=== PATIENT | female | born 1950 | race Two or more races ===

== ENCOUNTER 2024-12-20 11:59 | Emergency (ER) | payer MEDICAID, OTHER ==
[~2024-12-20] VITALS: Ht 160 cm; Wt 67.6 kg
--- NOTE | 2024-12-20 12:17 | ED.PDOC ---
HPI Comments 74 y/o F, with PMHx of HTN and CAD presents to the ED for CC of chest pain. Patient states, that she has been experiencing left sided chest pain x2days. Patient describes, chest pain to be within her left breast that worsens with touch. Patient denies headache, palpitations, shortness of breath, or weakness. No other associated symptoms, modifiers, recent injuries or sick contacts present at this time. 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 Family History Family History: Unknown Social History Smoker: Non-Smoker Alcohol: Denies ETOH Use Drugs: Denies Drug Use Lives In: Home Constitutional: denies: chills, diaphoresis, fatigue, fever, malaise, sweats, weakness, others EENTM: denies: blurred vision, double vision, ear bleeding, ear discharge, ear drainage, ear pain, ear ringing, eye pain, eye redness, hearing loss, mouth pain, mouth swelling, nasal discharge, nose bleeding, nose congestion, nose pain, photophobia, tearing, throat pain, throat swelling, voice changes, others Respiratory: denies: cough, hemoptysis, orthopnea, SOB at rest, shortness of breath, SOB with excertion, stridor, wheezing, others Cardiovascular: reports: chest pain; denies: dizzy spells, diaphoresis, Dyspnea on exertion, edema, irregular heart beat, left arm pain, lightheadedness, palpitations, PND, syncope, others Gastrointestinal: denies: abdomen distended, abdominal pain, blood streaked bowels, constipated, diarrhea, dysphagia, difficulty swallowing, hematemesis, melena, nausea, poor appetite, poor fluid intake, rectal bleeding, rectal pain, vomiting, others Genitourinary: denies: abnormal vagina bleeding, burning, dyspareunia, dysuria, flank pain, frequency, hematuria, incontinence, pain, , vagina discharge, urgency, others Neurological: denies: dizziness, fainting, headache, left sided numbness, left sided weakness, numbness, paresthesia, pre-existing deficit, right sided numbness, right sided weakness, seizure, speech problems, tingling, tremors, weakness, others Musculoskeletal: denies: back pain, gout, joint pain, joint swelling, muscle pain, muscle stiffness, neck pain, others Integumetry: denies: bruises, change in color, change in hair/nails, dryness, laceration, lesions, lumps, rash, wounds, others Allergic/Immunocompromised: denies: Difficulty Healing, Frequent Infections, Hives, Itching, others Hematologic/Lymphatic: denies: anemia, blood clots, easy bleeding, easy bruising, swollen glands, others Endocrine: denies: excessive hunger, excessive sweating, excessive thirst, excessive urination, flushing, intolerance to cold, intolerance to heat, unexplained weight gain, unexplained weight loss, others Psychiatric: denies: anxiety, bipolar disorder, depression, hopeless, panic disorder, schizophrenia, sleepless, suicidal, others All Other Systems: Reviewed and Negative Physical Exam General Appearance: Moderate Distress HEENT: Normal ENT Inspection, Pharynx Normal, TMs Normal Neck: Full Range of Motion, Non-Tender, Normal, Normal Inspection Respiratory: Chest Non-Tender, Lungs Clear, No Accessory Muscle Use, No Respiratory Distress, Normal Breath Sounds Cardiovascular: No Edema, No JVD, No Murmur, No Gallop, Normal Peripheral Pulses, Regular Rate/Rhythm Breast Exam: Deferred Gastrointestinal: No Organomegaly, Non Tender, No Pulsatile Mass, Normal Bowel Sounds, Soft Genitalia: Deferred Pelvic: Deferred Rectal: Deferred Extremities: No calf tenderness, Normal capillary refill, Normal range of motion, Pedal edema Musculoskeletal : Apperance: Normal Neurologic: Alert, marketing sales representative II-XII nml as Tested, No Motor Deficits, Normal Affect, Normal Mood, No Sensory Deficits Cerebellar Function: NOT DONE Reflexes: NOT DONE Skin: Dry, Normal Color, Warm Peripheral Pulses: 3+ Radial (R), 3+ Radial (L) Lymphatic: No Adenopathy EKG EKG : [place]: Normal Cardiac Rhythm: NSR Was a procedure done? Was a procedure done?: No CP Differential Dx Differential Diagnosis: A-fib, A-Flutter, Angina, Anxiety / Panic Attack, Atrial Dysrhythmia, Electrolyte Disorder Differential Diagnosis: Chest Wall Pain, Costochondritis, Pneumonia X-Ray, Labs, Meds, VS Vital Signs Date Time Temp Pulse Resp B/P (MAP) Pulse Ox O2 Delivery O2 Flow Rate FiO2 12/20/24 12:28 63 12/20/24 12:24 98.0 63 20 145/55 (85) 99 98.0 Lab Test 12/20/24 13:50 12/20/24 13:20 12/20/24 12:13 Range/Units Urine Color Light-yellow Yellow Urine Clarity Clear Clear Urine pH 6.5 5.0-9.0 Urine Specific [place] 1.006 1.001-1.035 Urine Protein Negative Negative Urine Ketones Negative Negative Urine Blood Negative Negative /uL Urine Nitrite Negative Negative Urine Bilirubin Negative Negative Urine Urobilinogen Normal Negative mg/dL Urine Leukocyte Esterase Trace Negative /uL Urine RBC <1 0 - 4 /hpf Urine Microscopic WBC 7 H 0-5 /HPF Urine Squamous Epithelial Cells None seen <5 /hpf Urine Bacteria None seen None Seen /hpf Urine Glucose Normal Normal mg/dL Troponin I High Sensitivity 9 9 </=34 ng/L White Blood Count 6.0 4.4-10.8 10^3/uL Red Blood Count 4.24 4.0-5.20 10^6/uL Hemoglobin 12.6 12.2-16.2 g/dL Hematocrit 38.1 36.0-46.0 % Mean Corpuscular Volume 89.8 80.0-100.0 fL Mean Corpuscular Hemoglobin 29.6 28.0-32.0 pg Mean Corpuscular Hemoglobin Concent 33.0 32.0-36.0 g/dL Red Cell Distribution Width 17.0 H 11.8-14.3 % Platelet Count 218 140-450 10^3/uL Mean Platelet Volume 8.8 6.9-10.8 fL Neutrophils (%) (Auto) 47.6 37.0-80.0 % Lymphocytes (%) (Auto) 39.2 10.0-50.0 % Monocytes (%) (Auto) 10.0 0.0-12.0 % Eosinophils (%) (Auto) 1.9 0.0-7.0 % Basophils (%) (Auto) 1.3 0.0-2.0 % Neutrophils # (Auto) 2.8 1.6-8.6 10 ^3/uL Lymphocytes # (Auto) 2.3 0.4-5.4 10 ^3/uL Monocytes # (Auto) 0.6 0-1.3 10 ^3/uL Eosinophils # (Auto) 0.1 0-0.8 10 ^3/uL Basophils # (Auto) 0.1 0-0.2 10 ^3/uL Nucleated Red Blood Cells 0.0 % Sodium Level 141 136-145 mmol/L Potassium Level 4.0 3.5-5.1 mmol/L Chloride Level 104 98-107 mmol/L Carbon Dioxide Level 30 20-31 mmol/L Anion Gap 7 5-15 Blood Urea Nitrogen 20 9-23 mg/dL Creatinine 1.10 H 0.550-1.02 mg/dL Glomerular Filtration Rate Calc 53 >90 mL/min BUN/Creatinine Ratio 18.2 10.0-20.0 Serum Glucose 89 74-106 mg/dL Calcium Level 9.5 8.7-10.4 mg/dL Patient alert. Complaining of chest pain. Vitals stable. Answering questions. Does have mild swelling of the right lower extremity. History of coronary artery bypass graft. EKG reviewed does not show any acute changes. Reviewed her history. Was given aspirin. Was given nitro. Explained to the patient. Continue monitoring. Time of 1ST Reevaluation: 12:40 Reevaluation 1ST: Unchanged Patient Education/Counseling: Diagnosis, Treatment Family Education/Counseling: No Family Present Departure 1 Departure Time of Disposition: 14:07 Impression: Primary Impression: Chest pain of unknown etiology Disposition: ADMITTED INPATIENT Admit to: Med Surg Condition: Guarded Critical Care Note Critical Care Time?: No Stability Stability form required: No Heart Score Heart Score: Heart Score Response (Comments) Value History Slightly Suspicious 0 EKG Normal 0 Age >65 2 Risk Factors >3 or Hx ASHD 2 Troponin Normal limit 0 Total 4 I personally scribed for JESUSITA CONTRERAS MD ([email or web address]) on 12/20/24 at 12:17. Electronically submitted by Mimi Lara ([email or web address]). JESUSITA CONTRERAS MD Dec 20, 2024 12:17
[2024-12-20 12:22] LABS: Basophils # (auto) 0.1 10 ^3/uL (0-0.2); Basophils % (auto) 1.3 % (0.0-2.0); Eosinophils # (auto) 0.1 10 ^3/uL (0-0.8); Eosinophils % (auto) 1.9 % (0.0-7.0); Hematocrit 38.1 % (36.0-46.0); Hemoglobin 12.6 g/dL (12.2-16.2); Lymphocytes # (auto) 2.3 10 ^3/uL (0.4-5.4); Lymphocytes % (auto) 39.2 % (10.0-50.0); Mean Corpuscular Hemoglobin 29.6 pg (28.0-32.0); Mean Corpuscular Volume 89.8 fL (80.0-100.0); Monocytes # (auto) 0.6 10 ^3/uL (0-1.3); Neutrophils # (auto) 2.8 10 ^3/uL (1.6-8.6); Neutrophils % (auto) 47.6 % (37.0-80.0); Platelet Count (auto) 218 10^3/uL (140-450); Red Blood Cells 4.24 10^6/uL (4.0-5.20)
[2024-12-20 12:24] VITALS: BP 145/55; RESP 20; TEMP 98; O2SAT 99
[2024-12-20 12:28] VITALS: PULSE 63
[2024-12-20] MEDS ORDERED: ASPirin 325 MG TAB PO ONE (12:30)
[2024-12-20] MEDS ORDERED: NITROGLYCERIN 0.4 MG SL TAB SL ONE (12:30)
[2024-12-20 12:42] LABS: Chloride 104 mmol/L (98-107); Sodium 141 mmol/L (136-145)
[2024-12-20 12:43] LABS: Anion Gap 7 (5-15); Calcium 9.5 mg/dL (8.7-10.4); Carbon Dioxide 30 mmol/L (20-31)
[2024-12-20 12:48] LABS: BUN/Creatinine Ratio 18.2 (10.0-20.0); Blood Urea Nitrogen 20 mg/dL (9-23); Glucose 89 mg/dL (74-106)
[2024-12-20 13:53] LABS: Urine Bacteria None Seen /hpf (None Seen)
[2024-12-20 14:01] LABS: Urine Blood Negative /uL (Negative); Urine Clarity Clear (Clear); Urine Protein, UAD Negative (Negative); Urine Specific Gravity 1.006 (1.001-1.035); Urine Squamous Epithelial Cell None Seen /hpf (<5); Urine Urobilinogen Normal (Negative); Urine WBC 7 /HPF (0-5); Urine pH 6.5 (5.0-9.0)
[2024-12-20 14:03] LABS: Urine Color Light-Yellow (Yellow)
--- NOTE | 2024-12-22 13:38 | ECG ---
[facility] Test Date: 2024-12-20 Test Time: 12:09:07 Pat Name: VINAY FLYNN Department: ER Room: Gender: F Process Owner: ER : 1950 Requested By: JESUSITA CONTRERAS Order Number: [id number] Reading MD: Measurements Intervals [place] Rate: 63 P: 58 HI: 177 QRS: 86 QRSD: 100 T: 61 QT: 482 QTc: 494 Interpretive Statements Sinus rhythm Borderline right axis deviation Borderline prolonged QT interval Baseline wander in lead(s) V1 Please click the below link to view image of tracing.
== END 2024-12-20 18:57 | disposition left against medical advice (07) ==
LOC: ER 11:59
DX: R07.89 Other chest pain (principal); I25.10 Atherosclerotic heart disease of native coronary artery without angina pectoris; I10 Essential (primary) hypertension; Z95.1 Presence of aortocoronary bypass graft
CPT/HCPCS: 36415; 80048; 81001; 84484; 85025; 93005

== ENCOUNTER 2025-02-11 05:36 | Inpatient (IN) | payer MEDICAID ==
[2025-02-11] VITALS (8 sets, daily range): BP systolic 127–136; BP diastolic 61–72; PULSE 67–127; RESP 16–20; TEMP 97.4–97.7; O2SAT 96–98
[~2025-02-11] VITALS: Ht 160 cm; Wt 76.0 kg
--- NOTE | 2025-02-11 05:52 | PRN ---
Misceleneous Note Note Note RAPID MEDICAL ASSESSMENT NOTE: 71-year-old female who presents with palpitations. Physical exam: General: Awake, alert and oriented. No acute distress. Skin: Skin in warm, dry and intact without rashes or lesions. HEENT: The head is normocephalic and atraumatic. Conjunctivae are clear without exudates or hemorrhage. Sclera is non-icteric. Neck: Normal range of motion. No JVD. Cardiac: Patient is tachycardic Respiratory: No signs of respiratory distress. No Stridor. Neurological: The patient is awake, alert and oriented to person, place, and time with normal speech. Speech is clear. There is no facial asymmetry. Psychiatric: Appropriate mood and affect. Good judgement and insight. Plan: Labs, imaging, gentle IVF bolus Sign out to oncoming provider pending full evaluation and re-assessment. SHAYNE KEENE MD Feb 11, 2025 05:52
--- NOTE | 2025-02-11 06:24 | ECG ---
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
[2025-02-11 06:25] LABS: Basophils # (auto) 0 10 ^3/uL (0-0.2); Basophils % (auto) 0.8 % (0.0-2.0); Eosinophils # (auto) 0.2 10 ^3/uL (0-0.8); Eosinophils % (auto) 3.6 % (0.0-7.0); Hematocrit 43.5 % (36.0-46.0); Hemoglobin 14.6 g/dL (12.2-16.2); Lymphocytes # (auto) 2.3 10 ^3/uL (0.4-5.4); Lymphocytes % (auto) 43.2 % (10.0-50.0); Mean Corpuscular Hemoglobin 28.5 pg (28.0-32.0); Mean Corpuscular Hgb Conc. 33.5 g/dL (32.0-36.0); Monocytes # (auto) 0.5 10 ^3/uL (0-1.3); Monocytes % (auto) 10.1 % (0.0-12.0); Neutrophils # (auto) 2.2 10 ^3/uL (1.6-8.6); Neutrophils % (auto) 42.3 % (37.0-80.0); Nucleated Red Blood Cells % 0.1 %; Platelet Count (auto) 207 10^3/uL (140-450); Red Blood Cells 5.12 10^6/uL (4.0-5.20); Red Cell Distribution Width 16.7 % (11.8-14.3); White Blood Cell 5.2 10^3/uL (4.4-10.8)
[2025-02-11] MEDS: SODIUM CHLORIDE 0.9% 250 ML IV ONE (06:29)
[2025-02-11 06:35] LABS: Anion Gap 10 (5-15); Carbon Dioxide 27 mmol/L (20-31)
[2025-02-11 06:36] LABS: Calcium 9.6 mg/dL (8.7-10.4); Chloride 108 mmol/L (98-107); Potassium 3.1 mmol/L (3.5-5.1); Sodium 145 mmol/L (136-145)
[2025-02-11 06:41] LABS: BUN/Creatinine Ratio 14.3 (10.0-20.0); Blood Urea Nitrogen 14 mg/dL (9-23); Glucose 99 mg/dL (74-106)
--- NOTE | 2025-02-11 06:50 | DVH ---
CHEST RADIOGRAPH Indication: palpitations Technique: Single frontal view of the chest was obtained Comparison: None FINDINGS: Lines and Tubes: None Lungs: No focal consolidation. Pleura: No effusion. No pneumothorax. Cardiomediastinal contours: Left atrial appendage clip. Mild cardiomegaly. Bones: No acute osseous abnormality. Status post median sternotomy. IMPRESSION: 1. No focal airspace disease. Mild cardiomegaly.
[2025-02-11 06:52] LABS: Lipase 33 U/L (12-53)
--- NOTE | 2025-02-11 07:02 | ED.PDOC ---
HPI Comments This is a 74 year old female accompanied by son presenting to the ED with chief complaint of palpitations. Son reports that the patient has been experiencing intermittent palpitations with associated SOB ever since she had triple bypass surgery in September at [facility]. 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 Patient states she has not taken her medication this morning. Patient denies any chest pain, dizziness, nausea, vomiting, diarrhea, fever, chills, or cough. Chief Complaint: Palpitations Time Seen by MD: 06:59 Primary Care Provider: UNKNOWN Reviewed Notes: Nurses Notes, Medications, Allergies Allergies: Coded Allergies: NO KNOWN ALLERGIES (Unverified , 12/20/24) Information Source: Patient, Relative (Child) Mode of Arrival: Ambulatory Severity: Moderate Timing: Months Duration: Intermittent Prehospital treatment: None Radiation: No Radiation Onset: At Rest Cardiac Risk Factors: Hyperlipidemia, HTN PE Risk Factors: None History of: Similar pain in past, Aortic Disease Associated Signs and Symptoms: SOB, Palpitations Past Medical History PAST MEDICAL HISTORY: CAD, CHF, High Lipids, HTN Surgical History: CABG 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 Family History Family History: Unknown Social History Smoker: Non-Smoker Alcohol: Denies ETOH Use Drugs: Denies Drug Use Lives In: Home Constitutional: denies: chills, diaphoresis, fatigue, fever, malaise, sweats, weakness, others EENTM: denies: blurred vision, double vision, ear bleeding, ear discharge, ear drainage, ear pain, ear ringing, eye pain, eye redness, hearing loss, mouth pain, mouth swelling, nasal discharge, nose bleeding, nose congestion, nose pain, photophobia, tearing, throat pain, throat swelling, voice changes, others Respiratory: reports: shortness of breath; denies: cough, hemoptysis, orthopnea, SOB at rest, SOB with excertion, stridor, wheezing, others Cardiovascular: reports: palpitations; denies: chest pain, dizzy spells, diaphoresis, Dyspnea on exertion, edema, irregular heart beat, left arm pain, lightheadedness, PND, syncope, others Gastrointestinal: denies: abdomen distended, abdominal pain, blood streaked bowels, constipated, diarrhea, dysphagia, difficulty swallowing, hematemesis, melena, nausea, poor appetite, poor fluid intake, rectal bleeding, rectal pain, vomiting, others Genitourinary: denies: abnormal vagina bleeding, burning, dyspareunia, dysuria, flank pain, frequency, hematuria, incontinence, pain, , vagina discharge, urgency, others Neurological: denies: dizziness, fainting, headache, left sided numbness, left sided weakness, numbness, paresthesia, pre-existing deficit, right sided n umbness, right sided weakness, seizure, speech problems, tingling, tremors, weakness, others Musculoskeletal: denies: back pain, gout, joint pain, joint swelling, muscle pain, muscle stiffness, neck pain, others Integumetry: denies: bruises, change in color, change in hair/nails, dryness, laceration, lesions, lumps, rash, wounds, others Allergic/Immunocompromised: denies: Difficulty Healing, Frequent Infections, Hives, Itching, others Hematologic/Lymphatic: denies: anemia, blood clots, easy bleeding, easy bruising, swollen glands, others Endocrine: denies: excessive hunger, excessive sweating, excessive thirst, excessive urination, flushing, intolerance to cold, intolerance to heat, unexplained weight gain, unexplained weight loss, others Psychiatric: denies: anxiety, bipolar disorder, depression, hopeless, panic disorder, schizophrenia, sleepless, suicidal, others All Other Systems: Reviewed and Negative Physical Exam General Appearance: No Apparent Distress, Normal HEENT: Normal ENT Inspection, Pharynx Normal, TMs Normal Neck: Full Range of Motion, Non-Tender, Normal, Normal Inspection Respiratory: Chest Non-Tender, Lungs Clear, No Accessory Muscle Use, No Respiratory Distress, Normal Breath Sounds Cardiovascular: No Edema, No JVD, No Murmur, No Gallop, Normal Peripheral Pulses, Tachycardia Breast Exam: Deferred Gastrointestinal: No Organomegaly, Non Tender, No Pulsatile Mass, Normal Bowel Sounds, Soft Genitalia: Deferred Pelvic: Deferred Rectal: Deferred Extremities: No calf tenderness, Normal capillary refill, Normal inspection, Normal range of motion, Non-tender, No pedal edema Musculoskeletal : Apperance: Normal Neurologic: Alert, migrant leader II-XII nml as Tested, No Motor Deficits, Normal Affect, Normal Mood, No Sensory Deficits Cerebellar Function: Normal Reflexes: Normal Skin: Dry, Normal Color, Warm Lymphatic: No Adenopathy Was a procedure done? Was a procedure done?: No CP Differential Dx Differential Diagnosis: A-fib, Electrolyte Disorder, WI, PAC's Differential Diagnosis: CHF, HTN Essential Differential Diagnosis: Myocardial Infarction, Pericarditis X-Ray, Labs, Meds, VS Vital Signs Date Time Temp Pulse Resp B/P (MAP) Pulse Ox O2 Delivery O2 Flow Rate FiO2 02/11/25 06:11 98.1 126 18 140/87 (104) 96 98.1 02/11/25 06:11 127 20 96 Room Air* 0 21 02/11/25 05:43 122 02/11/25 05:40 97.5 122 18 151/70 (97) 99 97.5 Lab Test 02/11/25 07:04 02/11/25 06:04 Range/Units Troponin I High Sensitivity Pending 17 </=34 ng/L White Blood Count 5.2 4.4-10.8 10^3/uL Red Blood Count 5.12 4.0-5.20 10^6/uL Hemoglobin 14.6 12.2-16.2 g/dL Hematocrit 43.5 36.0-46.0 % Mean Corpuscular Volume 85.0 80.0-100.0 fL Mean Corpuscular Hemoglobin 28.5 28.0-32.0 pg Mean Corpuscular Hemoglobin Concent 33.5 32.0-36.0 g/dL Red Cell Distribution Width 16.7 H 11.8-14.3 % Platelet Count 207 140-450 10^3/uL Mean Platelet Volume 8.8 6.9-10.8 fL Neutrophils (%) (Auto) 42.3 37.0-80.0 % Lymphocytes (%) (Auto) 43.2 10.0-50.0 % Monocytes (%) (Auto) 10.1 0.0-12.0 % Eosinophils (%) (Auto) 3.6 0.0-7.0 % Basophils (%) (Auto) 0.8 0.0-2.0 % Neutrophils # (Auto) 2.2 1.6-8.6 10 ^3/uL Lymphocytes # (Auto) 2.3 0.4-5.4 10 ^3/uL Monocytes # (Auto) 0.5 0-1.3 10 ^3/uL Eosinophils # (Auto) 0.2 0-0.8 10 ^3/uL Basophils # (Auto) 0 0-0.2 10 ^3/uL Nucleated Red Blood Cells 0.1 % Sodium Level 145 136-145 mmol/L Potassium Level 3.1 L 3.5-5.1 mmol/L Chloride Level 108 H 98-107 mmol/L Carbon Dioxide Level 27 20-31 mmol/L Anion Gap 10 5-15 Blood Urea Nitrogen 14 9-23 mg/dL Creatinine 0.98 0.550-1.02 mg/dL Glomerular Filtration Rate Calc 61 >90 mL/min BUN/Creatinine Ratio 14.3 10.0-20.0 Serum Glucose 99 74-106 mg/dL Calcium Level 9.6 8.7-10.4 mg/dL B-Type Natriuretic Peptide 314.39 0-100 pg/mL Lipase 33 12-53 U/L Current Medications Medications (Trade) Dose Ordered Sig/Tal Route Start Time Stop Time Status Last Admin Sodium Chloride 250 ml @ 250 mls/hr Q1H ONCE IV 02/11/25 06:00 02/11/25 06:59 DC 02/11/25 06:29 Time of 1ST Reevaluation: 07:58 Reevaluation 1ST: Unchanged Patient Education/Counseling: Diagnosis, Treatment Family Education/Counseling: Diagnosis, Treatment Additional Information Previous visits reviewed: 12/20/24 for chest pain The following tests were ordered, and results were reviewed by me: Chest XR, CBC, BMP, UA, Lipase, BNP, Troponin, EKG Additional Information was gathered from interviewing the following independent historians: Son I reviewed and agreed with the following test results read by other providers: Chest XR I discussed treatment and results with medical personnel and: patient and son Comprehensive systems review obtained and negative except for what is stated in the HPI. Departure 1 Departure Time of Disposition: 07:29 (Patient's worsening shortness of breath and palpit ations. We will admit patient for further workup and expert consultation) Impression: Primary Impression: Shortness of breath Additional Impression: Palpitations Disposition: ADMITTED INPATIENT Admit to: Med Surg Condition: Serious Critical Care Note Critical Care Time?: Yes Critical care comment: Acute shortness of breath Authorized and Performed by: Jarad Lovelace MD Total critical care time: Approximately 38 minutes Due to a high probability of clinically significant, life threatening deterioration, the patient required my highest level of preparedness to intervene emergently and I personally spent this critical care time directly and personally managing the patient. This critical care time included obtaining a history; examining the patient; pulse oximetry; ordering and review of studies; arranging urgent treatment with development of a management plan; evaluation of patient's response to treatment; frequent reassessment; and, discussions with other providers. This critical care time was performed to assess and manage the high probability of imminent, life-threatening deterioration that could result in multi-organ failure. It was exclusive of separately billable procedures and treating other patients and teaching time. Please see my other sections and the rest of the note for further information on patient assessment and treatment. Stability Stability form required: No Heart Score Heart Score: Heart Score Response (Comments) Value History Highly Suspicious 2 EKG Normal 0 Age >65 2 Risk Factors >3 or Hx ASHD 2 Troponin 1-2 x's Normal limit 1 Total 7 I personally scribed for JARAD LOVELACE MD ([email or web address]) on 02/11/25 at 07:02. Electronically submitted by Adithya Mcclendon ([email or web address]). JARAD LOVELACE MD Feb 11, 2025 07:02
--- NOTE | 2025-02-11 07:43 | ECG ---
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
[2025-02-11] MEDS ORDERED: DOCUSATE SOD 100 MG CAP PO PRN (08:45)
[2025-02-11] MEDS ORDERED: ONDANSETRON HCL 4 MG/2 ML VIAL IV PRN (08:45)
[2025-02-11] MEDS ORDERED: HYDROcodone-ACET 5/325MG TAB PO PRN (08:45)
[2025-02-11] MEDS ORDERED: ACETAMINOPHEN 325 MG TAB PO PRN (08:45)
[2025-02-11] MEDS ORDERED: hydrALAZINE HCL 20 MG/ML VL IV PRN (08:45)
[2025-02-11] MEDS: METOPROLOL TARTRATE 1MG/1ML-5ML VIAL IV ONE (09:06)
[2025-02-11] MEDS ORDERED: NITROGLYCERIN 0.4 MG SL TAB SL PRN (09:30)
[2025-02-11] MEDS ORDERED: MORPHINE SULFATE INJ 2 MG/ml SYRG IV PRN (09:30)
--- NOTE | 2025-02-11 09:32 | DVHHP2 ---
History of Present Illness Reason for Visit: Palpitations History of Present Illness The patient is a 74-year-old female with past medical history of Coronary artery disease, CHF, hyperlipidemia, and hypertension who presented to [facility] ED with complaint of palpitations. 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 Patient was seen and evaluated in the ED, laboratory data shows WBC 5.2, platelets 207, sodium 145, potassium 3.1, BUN 14, creatinine 0.98, glucose 99, BNP 314.39, lipase 33, troponin 15, blood pressure 140/87, heart rate 126 trending down to 76, temperature 98.1 F, O2 saturation 96% on oxygen. Chest x-ray showed no focal airspace disease, mild cardiomegaly. On my assessment, patient denied chest pain, no headache, no dizziness, no diaphoresis, no palpitation at this moment, currently on oxygen, no nausea, no vomiting, no fever, no chills. Patient was admitted for further evaluation and medical management. Past Medical History CAD, CHF, High Lipids, HTN Past Surgical History CABG Family History Reviewed, noncontributory to the management of this case. Past Social History The patient lives at home, denies smoking, alcohol or illicit drugs abuse. Review of Systems Constitutional: Yes: Weakness; No: Fever, Chills, Sweats, Malaise, Other Eyes: No: Pain, Vision change, Conjunctivae inflammation, Eyelid inflammation, Other, Redness ENT: No: Ear pain, Ear discharge, Nose pain, Nose discharge, Nose congestion, Mouth pain, Mouth swelling, Throat pain, Throat swelling, Other Respiratory: Shortness of breath; No: Cough, Dry, SOB with excertion, Wheezing, Hemoptysis, Pleuritic Pain, Sputum, Wheezing, Other Cardiovascular: Palpitations; No: Chest Pain, Orthopnea, Paroxysmal Noc. Dyspnea, Edema, Lt Headedness, Other Gastrointestinal: No: Nausea, Vomiting, Abdominal Pain, Diarrhea, Constipation, Melena, Hematochezia, Other Genitourinary: No Dysuria, No Frequency, No Incontinence, No Hematuria, No Retention, No Other Musculoskeletal: No: other, neck pain, shoulder pain, arm pain, back pain, hand pain, leg pain, foot pain Skin: No: Rash, Lesions, Jaundice, Bruising, Other Neurological: No: Weakness, Numbness, Incoordination, Change in speech, Confusion, Seizures, Other Allergies: Coded Allergies: NO KNOWN ALLERGIES (Unverified , 12/20/24) Medications Current Medications Medications Dose Ordered Sig/Tal Route Start Time Stop Time Status Last Admin Dose Admin Carvedilol 12.5 mg Q12HR PO 02/11/25 10:00 Furosemide 20 mg DAILY IV 02/11/25 10:00 Atorvastatin Calcium 20 mg HS PO 02/11/25 22:00 Aspirin 81 mg DAILY PO 02/11/25 10:00 Hydralazine HCl 10 mg Q6HP PRN IV 02/11/25 08:45 Sodium Chloride 10 ml Q8HR IV 02/11/25 14:00 Acetaminophen/ Hydrocodone Bitart 1 tab Q4HP PRN PO 02/11/25 08:45 Ondansetron HCl 4 mg Q4HP PRN IV 02/11/25 08:45 Docusate Sodium 100 mg BIDPRN PRN PO 02/11/25 08:45 Acetaminophen 650 mg Q6HP PRN PO 02/11/25 08:45 Exam Vital Signs Vital Signs Date Time Temp Pulse Resp B/P (MAP) Pulse Ox O2 Delivery O2 Flow Rate FiO2 02/11/25 09:06 77 139/76 02/11/25 07:36 16 97 Room Air* 0 21 02/11/25 07:36 98.4 98.4 General Appearance: Alert, Oriented X3, Cooperative, No acute distress HEENT: Atraumatic, PERRLA, EOMI, Mucous membr. moist/pink Respiratory: Clear to auscultation, Normal air movement Cardiovascular: Regular rate, Normal S1, Normal S2, No murmurs Abdominal: Normal bowel sounds, Soft, No tenderness, No hepatospenomegaly, No masses Extremities: No clubbing, No cyanosis, No edema, Normal pulses, No tenderness/swelling Skin: No rashes, No breakdown, No significant lesion Neuro: Normal speech, Normal tone, Sensation intact, Cranial nerves 3-12 NL, Reflexes 2+, Other (Generalized weakness) Psych/Mental Status: Mental status NL, Mood NL Labs/Xrays Labs Test 02/11/25 09:19 02/11/25 09:10 02/11/25 06:04 Range/Units White Blood Count 5.2 4.4-10.8 10^3/uL Red Blood Count 5.12 4.0-5.20 10^6/uL Hemoglobin 14.6 12.2-16.2 g/dL Hematocrit 43.5 36.0-46.0 % Mean Corpuscular Volume 85.0 80.0-100.0 fL Mean Corpuscular Hemoglobin 28.5 28.0-32.0 pg Mean Corpuscular Hemoglobin Concent 33.5 32.0-36.0 g/dL Red Cell Distribution Width 16.7 H 11.8-14.3 % Platelet Count 207 140-450 10^3/uL Mean Platelet Volume 8.8 6.9-10.8 fL Neutrophils (%) (Auto) 42.3 37.0-80.0 % Lymphocytes (%) (Auto) 43.2 10.0-50.0 % Monocytes (%) (Auto) 10.1 0.0-12.0 % Eosinophils (%) (Auto) 3.6 0.0-7.0 % Basophils (%) (Auto) 0.8 0.0-2.0 % Neutrophils # (Auto) 2.2 1.6-8.6 10 ^3/uL Lymphocytes # (Auto) 2.3 0.4-5.4 10 ^3/uL Monocytes # (Auto) 0.5 0-1.3 10 ^3/uL Eosinophils # (Auto) 0.2 0-0.8 10 ^3/uL Basophils # (Auto) 0 0-0.2 10 ^3/uL Nucleated Red Blood Cells 0.1 % Sodium Level 145 136-145 mmol/L Potassium Level 3.1 L 3.5-5.1 mmol/L Chloride Level 108 H 98-107 mmol/L Carbon Dioxide Level 27 20-31 mmol/L Anion Gap 10 5-15 Blood Urea Nitrogen 14 9-23 mg/dL Creatinine 0.98 0.550-1.02 mg/dL Glomerular Filtration Rate Calc 61 >90 mL/min BUN/Creatinine Ratio 14.3 10.0-20.0 Serum Glucose 99 74-106 mg/dL Calcium Level 9.6 8.7-10.4 mg/dL B-Type Natriuretic Peptide 314.39 0-100 pg/mL Lipase 33 12-53 U/L PATIENT: VINAY FLYNNACCT: [id number] UNIT: [id number] : 1950 LOC: ER ROOM / BED: / AGE / SEX: 74 / F ADM STATUS: REG ER SERVICE [id number] ORDERING PHYSICIAN: SHAYNE KEENE MD PROCEDURE(s): CXR1 - CHEST XRAY 1 VIEW REASON: palpitations ORDER NUMBER(s): [id number], ACCESSION NUMBER(s): [id number] CHEST RADIOGRAPH Indication: palpitations Technique: Single frontal view of the chest was obtained Comparison: None FINDINGS: Lines and Tubes: None Lungs: No focal consolidation. Pleura: No effusion. No pneumothorax. Cardiomediastinal contours: Left atrial appendage clip. Mild cardiomegaly. Bones: No acute osseous abnormality. Status post median sternotomy. IMPRESSION: 1. No focal airspace disease. Mild cardiomegaly. Assessment/Plan Assessment/Plan Palpitations Hypokalemia Acute respiratory distress Generalized weakness Plan 1. Admit to telemetry unit 2. Breathing treatment 3. Pain control management 4. Management of fluids and electrolytes 5. Consultation for hospitalist 6. Diagnostic tests chest x-ray 7. DVT prophylaxis on SCDs 8. Repeat labs CBC, CMP in a.m. 9. Continue with current medical management 10. Treatment plan discussed with patient and RN. Patient verbalized understanding. Plan discussed with: Patient, Other (RN) My Orders Orders - GURWINDER WEST DNP Procedure Category Date Status Time Carvedilol Tablet PHA 02/11/25 In Process (Coreg Tablet) 10:00 Furosemide Injection PHA 02/11/25 In Process (Lasix Injection) 10:00 Atorvastatin (Lipitor) PHA 02/11/25 In Process 22:00 Aspirin Tablet PHA 02/11/25 In Process 10:00 Hydralazine Injection PHA 02/11/25 In Process (Apresoline Inject 08:45 Allergies CANDACE 02/11/25 In Process 08:36 Code Status CODE 02/11/25 Transmitted 08:36 Sodium Chloride Lock PHA 02/11/25 In Process (Saline Lock Ns) 14:00 Oxygen Per Hour RT 02/11/25 Transmitted 08:36 Hydrocodone-Acet PHA 02/11/25 In Process 5/325mg Tab (Saffell 08:45 Ondansetron Hcl PHA 02/11/25 In Process (Zofran) 08:45 Docusate Sodium PHA 02/11/25 In Process Capsule (Colace 08:45 Complete Blood Count LAB 02/12/25 Verified 04:00 Comprehensive LAB 02/12/25 Verified Metabolic Panel 04:00 Cardiac DIET 02/11/25 Transmitted Diet-2gna,Lofat,Lochol Breakfast Condition: Serious CANDACE 02/11/25 In Process 08:36 Acetaminophen Tablet PHA 02/11/25 In Process (Tylenol Tablet) 08:45 Bedrest With Bathroom CANDACE 02/11/25 In Process Privileg 08:36 Sequential CANDACE 02/11/25 In Process Compression Device Problem List: (1) Palpitations (2) Hypokalemia (3) Acute respiratory distress (4) Generalized weakness Date of Service: Feb 11, 2025 Billing Provider: GURWINDER WEST DNP Common Visit Codes: 06226-[id number] INP/OBS CARE (HIGH) GURWINDER WEST DNP Feb 11, 2025 09:32
[2025-02-11 09:42] LABS: Urine Bacteria FEW /hpf (None Seen); Urine Blood Negative /uL (Negative); Urine Clarity Clear (Clear); Urine Color Light-Yellow (Yellow); Urine Protein, UAD Negative (Negative); Urine Specific Gravity 1.009 (1.001-1.035); Urine Squamous Epithelial Cell FEW /hpf (<5); Urine Urobilinogen Normal (Negative); Urine WBC 1 /HPF (0-5)
[2025-02-11] MEDS: CARVEDILOL 12.5 MG TAB PO SCH (09:46)
[2025-02-11] MEDS: ASPirin 81 mg TAB PO SCH (09:46)
[2025-02-11] MEDS: FUROSEMIDE 20 MG/2 ML VIAL IV SCH (09:47)
[2025-02-11] MEDS: POTASSIUM CHL 20 Meq TABLET PO ONE (10:02)
[2025-02-11] MEDS: SODIUM CHLOR 0.9% PF (SALINE LOCK) 10ML VIAL/SYR IV SCH (14:14)
[2025-02-11] MEDS: ATORVASTATIN 20 MG TAB PO SCH (21:50)
[2025-02-12 01:00] VITALS: BP 131/68; PULSE 72; RESP 17; TEMP 97.7; O2SAT 98
[2025-02-12 05:00] VITALS: BP 126/70; PULSE 66; RESP 18; TEMP 97.6; O2SAT 97
[2025-02-12 06:12] LABS: Basophils # (auto) 0 10 ^3/uL (0-0.2); Basophils % (auto) 0.6 % (0.0-2.0); Eosinophils # (auto) 0.1 10 ^3/uL (0-0.8); Eosinophils % (auto) 3.4 % (0.0-7.0); Hematocrit 37.5 % (36.0-46.0); Hemoglobin 12.4 g/dL (12.2-16.2); Lymphocytes # (auto) 1.9 10 ^3/uL (0.4-5.4); Lymphocytes % (auto) 44.4 % (10.0-50.0); Mean Corpuscular Hemoglobin 28.2 pg (28.0-32.0); Mean Corpuscular Volume 85.6 fL (80.0-100.0); Monocytes # (auto) 0.4 10 ^3/uL (0-1.3); Monocytes % (auto) 10.4 % (0.0-12.0); Neutrophils # (auto) 1.7 10 ^3/uL (1.6-8.6); Neutrophils % (auto) 41.2 % (37.0-80.0); Nucleated Red Blood Cells % 0.2 %; Platelet Count (auto) 175 10^3/uL (140-450); Red Blood Cells 4.38 10^6/uL (4.0-5.20); Red Cell Distribution Width 17.1 % (11.8-14.3); White Blood Cell 4.2 10^3/uL (4.4-10.8)
[2025-02-12 06:35] LABS: Alanine Aminotransferase 11 U/L (7-40); Albumin 3.7 g/dL (3.2-4.8); Alkaline Phosphatase 85 U/L (46-116); Anion Gap 9 (5-15); Aspartate Aminotransferase 20 U/L (13-40); BUN/Creatinine Ratio 23.2 (10.0-20.0); Blood Urea Nitrogen 19 mg/dL (9-23); Carbon Dioxide 25 mmol/L (20-31); Glucose 92 mg/dL (74-106); Potassium 3.9 mmol/L (3.5-5.1); Sodium 144 mmol/L (136-145); Total Protein 6.3 g/dL (5.7-8.2)
[2025-02-12 06:36] LABS: Bilirubin, Total 0.5 mg/dL (0.2-1.0)
[2025-02-12 06:37] LABS: Calcium 8.6 mg/dL (8.7-10.4); Chloride 110 mmol/L (98-107)
[2025-02-12 08:00] VITALS: PULSE 72; RESP 16; O2SAT 98
[2025-02-12 08:46] VITALS: BP 135/63; PULSE 72; RESP 16; TEMP 97.6; O2SAT 98
[2025-02-12 13:00] VITALS: BP 128/63; PULSE 68; RESP 16; TEMP 98; O2SAT 97
[2025-02-12 15:31] VITALS: BP 128/63; PULSE 68; RESP 16; TEMP 98; O2SAT 97
--- NOTE | 2025-02-17 04:49 | DVHDS2 ---
Discharge Summary Date of Admission Feb 11, 2025 at 09:30 Date of Discharge: Feb 12, 2025 Labs/Diagnostic Data: Laboratory Results Test 02/12/25 05:33 02/11/25 09:19 02/11/25 09:10 02/11/25 06:04 White Blood Count 4.2 10^3/uL (4.4-10.8) Red Blood Count 4.38 10^6/uL (4.0-5.20) Hemoglobin 12.4 g/dL (12.2-16.2) Hematocrit 37.5 % (36.0-46.0) Mean Corpuscular Volume 85.6 fL (80.0-100.0) Mean Corpuscular Hemoglobin 28.2 pg (28.0-32.0) Mean Corpuscular Hemoglobin Concent 33.0 g/dL (32.0-36.0) Red Cell Distribution Width 17.1 % (11.8-14.3) Platelet Count 175 10^3/uL (140-450) Mean Platelet Volume 8.9 fL (6.9-10.8) Neutrophils (%) (Auto) 41.2 % (37.0-80.0) Lymphocytes (%) (Auto) 44.4 % (10.0-50.0) Monocytes (%) (Auto) 10.4 % (0.0-12.0) Eosinophils (%) (Auto) 3.4 % (0.0-7.0) Basophils (%) (Auto) 0.6 % (0.0-2.0) Neutrophils # (Auto) 1.7 10 ^3/uL (1.6-8.6) Lymphocytes # (Auto) 1.9 10 ^3/uL (0.4-5.4) Monocytes # (Auto) 0.4 10 ^3/uL (0-1.3) Eosinophils # (Auto) 0.1 10 ^3/uL (0-0.8) Basophils # (Auto) 0 10 ^3/uL (0-0.2) Nucleated Red Blood Cells 0.2 % Sodium Level 144 mmol/L (136-145) Potassium Level 3.9 mmol/L (3.5-5.1) Chloride Level 110 mmol/L (98-107) Carbon Dioxide Level 25 mmol/L (20-31) Anion Gap 9 (5-15) Blood Urea Nitrogen 19 mg/dL (9-23) Creatinine 0.82 mg/dL (0.550-1.02) Glomerular Filtration Rate Calc 75 mL/min (>90) BUN/Creatinine Ratio 23.2 (10.0-20.0) Serum Glucose 92 mg/dL (74-106) Calcium Level 8.6 mg/dL (8.7-10.4) Total Bilirubin 0.5 mg/dL (0.2-1.0) Aspartate Amino Transferase (AST) 20 U/L (13-40) Alanine Aminotransferase (ALT) 11 U/L (7-40) Alkaline Phosphatase 85 U/L (46-116) Total Protein 6.3 g/dL (5.7-8.2) Albumin 3.7 g/dL (3.2-4.8) Troponin I High Sensitivity 14 ng/L (</=34) Urine Color Light-yellow (Yellow) Urine Clarity Clear (Clear) Urine pH 6.0 (5.0-9.0) Urine Specific [place] 1.009 (1.001-1.035) Urine Protein Negative (Negative) Urine Ketones Negative (Negative) Urine Blood Negative /uL (Negative) Urine Nitrite Negative (Negative) Urine Bilirubin Negative (Negative) Urine Urobilinogen Normal mg/dL (Negative) Urine Leukocyte Esterase Negative /uL (Negative) Urine RBC 1 /hpf (0 - 4) Urine Microscopic WBC 1 /HPF (0-5) Urine Squamous Epithelial Cells Few /hpf (<5) Urine Bacteria Few /hpf (None Seen) Urine Glucose Normal mg/dL (Normal) B-Type Natriuretic Peptide 314.39 pg/mL (0-100) Lipase 33 U/L (12-53) Other Laboratory Tests 02/12/25 05:33 Brief Hx & Hospital Course: 74-year-old female with past medical history of Coronary artery disease, CHF, hyperlipidemia, and hypertension who presented to [facility] ED with complaint of palpitations. 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 Patient was seen and evaluated in the ED, laboratory data shows WBC 5.2, platelets 207, sodium 145, potassium 3.1, BUN 14, creatinine 0.98, glucose 99, BNP 314.39, lipase 33, troponin 15, blood pressure 140/87, heart rate 126 trending down to 76, temperature 98.1 F, O2 saturation 96% on oxygen. Chest x-ray showed no focal airspace disease, mild cardiomegaly. On my assessment, patient denied chest pain, no headache, no dizziness, no diaphoresis, no palpitation at this moment, currently on oxygen, no nausea, no vomiting, no fever, no chills. Patient was admitted for further evaluation and medical management. Palpitations resolved and hypokalemia Condition at Discharge: Good Final Diagnosis/Problems List hypokalemia tachycardia Discharge Disposition: Home Discharge Instruct/Medications Diet: Regular Activity: No Restrictions, As Tolerated Follow Up/Referral: PC in 7 days Medications: same home medications Discharge Statement: "Patient was advised to return to the ER or call 911 if any headaches, dizziness, shortness of breath, chest pain, abdominal pain, bleeding, fevers, or worsening of medical condition. Patient was counseled about treatment plan, medications, possible side effects, patientverbalized understanding. All questions were answered to the best of my ability. This discharge took greater then 30 minutes in planning, reviewing documentation, counseling the patient, and discussing with other team members." ASSESSMENT ASSESSMENT Assessment hypokalemia Date of Service: Feb 12, 2025 Billing Provider: ZAHIRA LIND MD Common Visit Codes: 02211-PMW/OBS DISCH DAY >30min ZAHIRA LIND MD Feb 17, 2025 04:49
== END 2025-02-12 16:20 | disposition home or self-care (01) | DRG 640 ==
LOC: ER 05:36 → OVERFLOW 09:30 → TELE-WESTW 15:16
PROVIDERS: ADMIT Hospitalist; ATTEND Hospitalist
DX: E87.6 Hypokalemia (principal); I50.31 Acute diastolic (congestive) heart failure; R00.2 Palpitations; R06.03 Acute respiratory distress; I11.0 Hypertensive heart disease with heart failure; I25.10 Atherosclerotic heart disease of native coronary artery without angina pectoris; I50.9 Heart failure, unspecified; Z95.1 Presence of aortocoronary bypass graft; Z79.899 Other long term (current) drug therapy
CPT/HCPCS: 36415; 71045; 80048; 80053; 81001; 83690; 83880; 84484; 85025; 93005; 96361; 96374; 99291; G0378

== ENCOUNTER 2025-02-15 20:56 | Emergency (ER) | payer MEDICAID ==
[~2025-02-15] VITALS: Ht 160 cm; Wt 72.4 kg
--- NOTE | 2025-02-15 21:27 | ED.PDOC ---
History of Present Illness HPI Comments 74 y/o F, with a history of CAD, CHF, HLD and HTN, presents with c/o HTN, with associated headache and dizziness. Patient reports on checking and noticing her blood pressure being elevated, with a systolic value in the 180's range, after developing a headache and becoming dizzy, this morning. She states on taking Metoprolol and Clonidine to manage her blood pressure in addition to taking Eliquis and refutes any recent stressors or strenuous activities. Patient denies having any chest pain, shortness of breath, palpitations, vision or speech changes, or further associated symptoms. Upon arrival to ED triage, patient had a blood pressure of 179/94. Time Seen by MD: 21:10 Primary Care Provider: UNKNOWN Reviewed Notes: Nurses Notes, Medications, Allergies Allergies: Coded Allergies: NO KNOWN ALLERGIES (Unverified , 12/20/24) Home Meds Active Scripts Clonidine Hydrochloride (Clonidine Hcl) 0.1 Mg Tab, 0.1 MG PO TID for 90 Days, #270 TAB 3 Refills Prov:ARASELI TOLBERT MD 02/16/25 Information Source: Patient Mode of Arrival: Wheelchair Severity: Moderate Timing: Hours Duration: Since onset Prehospital treatment: Other (blood pressure medication) Past Medical History PAST MEDICAL HISTORY: CAD, CHF, High Lipids, HTN Surgical History: CABG, Denies all surgeries MARKETING WRITER History: Denies all MARKETING WRITER Hx Family History Family History: Unknown Social History Smoker: Non-Smoker Alcohol: Denies ETOH Use Drugs: Denies Drug Use Lives In: Home All Other Systems: Reviewed and Negative (See HPI) Physical Exam General Appearance: No Apparent Distress, Normal, Other (elderly) HEENT: Normal ENT Inspection, Pharynx Normal, TMs Normal Neck: Full Range of Motion, Non-Tender, Normal, Normal Inspection Respiratory: Chest Non-Tender, Lungs Clear, No Accessory Muscle Use, No Respi ratory Distress, Normal Breath Sounds Cardiovascular: No Edema, No JVD, No Murmur, No Gallop, Normal Peripheral Pulses, Regular Rate/Rhythm Breast Exam: Deferred Gastrointestinal: No Organomegaly, Non Tender, No Pulsatile Mass, Normal Bowel Sounds, Soft Genitalia: Deferred Pelvic: Deferred Rectal: Deferred Extremities: No calf tenderness, Normal capillary refill, Normal inspection, Normal range of motion, Non-tender, No pedal edema Musculoskeletal : Apperance: Normal Neurologic: Alert, field services manager II-XII nml as Tested, No Motor Deficits, Normal Affect, Normal Mood, No Sensory Deficits Cerebellar Function: Normal Reflexes: Normal Skin: Dry, Normal Color, Warm Lymphatic: No Adenopathy Was a procedure done? Was a procedure done?: No Differential Dx Considerations may include: HTN emergency, medication noncompliance, among others X-Ray, Labs, Meds, VS Vital Signs Date Time Temp Pulse Resp B/P (MAP) Pulse Ox O2 Delivery O2 Flow Rate FiO2 02/16/25 02:04 75 02/16/25 01:55 98.0 75 20 159/65 (96) 99 98.0 02/15/25 21:05 98.1 89 17 179/94 (122) 97 98.1 Lab Test 02/16/25 00:16 02/15/25 21:30 02/15/25 21:23 Range/Units Troponin I High Sensitivity 16 11 </=34 ng/L Urine Color Colorless Yellow Urine Clarity Clear Clear Urine pH 7.0 5.0-9.0 Urine Specific [place] 1.002 1.001-1.035 Urine Protein Negative Negative Urine Ketones Negative Negative Urine Blood Negative Negative /uL Urine Nitrite Negative Negative Urine Bilirubin Negative Negative Urine Urobilinogen Normal Negative mg/dL Urine Leukocyte Esterase Negative Negative /uL Urine RBC None seen 0 - 4 /hpf Urine Microscopic WBC < 1 0-5 /HPF Urine Squamous Epithelial Cells Few <5 /hpf Urine Bacteria None seen None Seen /hpf Urine Glucose Normal Normal mg/dL White Blood Count 7.7 # 4.4-10.8 10^3/uL Red Blood Count 4.73 4.0-5.20 10^6/uL Hemoglobin 13.5 12.2-16.2 g/dL Hematocrit 40.3 36.0-46.0 % Mean Corpuscular Volume 85.2 80.0-100.0 fL Mean Corpuscular Hemoglobin 28.5 28.0-32.0 pg Mean Corpuscular Hemoglobin Concent 33.5 32.0-36.0 g/dL Red Cell Distribution Width 16.8 H 11.8-14.3 % Platelet Count 198 140-450 10^3/uL Mean Platelet Volume 8.9 6.9-10.8 fL Neutrophils (%) (Auto) 47.8 37.0-80.0 % Lymphocytes (%) (Auto) 41.4 10.0-50.0 % Monocytes (%) (Auto) 7.8 0.0-12.0 % Eosinophils (%) (Auto) 2.0 0.0-7.0 % Basophils (%) (Auto) 1.0 0.0-2.0 % Neutrophils # (Auto) 3.7 1.6-8.6 10 ^3/uL Lymphocytes # (Auto) 3.2 0.4-5.4 10 ^3/uL Monocytes # (Auto) 0.6 0-1.3 10 ^3/uL Eosinophils # (Auto) 0.2 0-0.8 10 ^3/uL Basophils # (Auto) 0.1 0-0.2 10 ^3/uL Nucleated Red Blood Cells 0.0 % Sodium Level 142 136-145 mmol/L Potassium Level 3.7 3.5-5.1 mmol/L Chloride Level 104 98-107 mmol/L Carbon Dioxide Level 28 20-31 mmol/L Anion Gap 10 5-15 Blood Urea Nitrogen 16 9-23 mg/dL Creatinine 1.18 #H 0.550-1.02 mg/dL Glomerular Filtration Rate Calc 48 >90 mL/min BUN/Creatinine Ratio 13.6 10.0-20.0 Serum Glucose 90 74-106 mg/dL Calcium Level 9.9 8.7-10.4 mg/dL Time of 1ST Reevaluation: 21:40 Reevaluation 1ST: Unchanged Patient Education/Counseling: Diagnosis, Treatment, Need For Follow Up Family Education/Counseling: No Family Present Departure 1 Departure Time of Disposition: 23:00 Impression: Primary Impression: Palpitations Additional Impressions: Hypertension Dizziness Disposition: 01 HOME / SELF CARE / HOMELESS Condition: Stable e-Prescriptions Clonidine Hydrochloride (Clonidine Hcl) 0.1 Mg Tab 0.1 MG PO TID for 90 Days, #270 TAB 3 Refills Prov: ARASELI TOLBERT MD 02/16/25 Discharged With: Self Critical Care Note Critical Care Time?: No Stability Stability form required: No Heart Score Heart Score: Heart Score Response (Comments) Value History N/A 0 EKG N/A 0 Age N/A 0 Risk Factors N/A 0 Troponin N/A 0 Total 0 I personally scribed for ARASELI TOLBERT MD ([email or web address]) on 02/15/25 at 21:27. Electronically submitted by Chris Lou [email or web address]). ARASELI TOLBERT MD Feb 15, 2025 21:27
[2025-02-15 21:40] LABS: Basophils # (auto) 0.1 10 ^3/uL (0-0.2); Eosinophils # (auto) 0.2 10 ^3/uL (0-0.8); Hematocrit 40.3 % (36.0-46.0); Hemoglobin 13.5 g/dL (12.2-16.2); Lymphocytes # (auto) 3.2 10 ^3/uL (0.4-5.4); Lymphocytes % (auto) 41.4 % (10.0-50.0); Mean Corpuscular Hemoglobin 28.5 pg (28.0-32.0); Mean Corpuscular Hgb Conc. 33.5 g/dL (32.0-36.0); Mean Corpuscular Volume 85.2 fL (80.0-100.0); Monocytes # (auto) 0.6 10 ^3/uL (0-1.3); Monocytes % (auto) 7.8 % (0.0-12.0); Neutrophils # (auto) 3.7 10 ^3/uL (1.6-8.6); Neutrophils % (auto) 47.8 % (37.0-80.0); Platelet Count (auto) 198 10^3/uL (140-450); Red Blood Cells 4.73 10^6/uL (4.0-5.20); Red Cell Distribution Width 16.8 % (11.8-14.3); White Blood Cell 7.7 10^3/uL (4.4-10.8)
[2025-02-15 21:45] LABS: Urine Bacteria None Seen /hpf (None Seen)
[2025-02-15 21:49] LABS: Chloride 104 mmol/L (98-107); Sodium 142 mmol/L (136-145)
[2025-02-15 21:50] LABS: Anion Gap 10 (5-15); Calcium 9.9 mg/dL (8.7-10.4); Carbon Dioxide 28 mmol/L (20-31); Potassium 3.7 mmol/L (3.5-5.1)
[2025-02-15 21:55] LABS: Glucose 90 mg/dL (74-106)
[2025-02-15 22:05] LABS: Urine Blood Negative /uL (Negative); Urine Clarity Clear (Clear); Urine Color Colorless (Yellow); Urine Protein, UAD Negative (Negative); Urine Specific Gravity 1.002 (1.001-1.035); Urine Squamous Epithelial Cell FEW /hpf (<5); Urine Urobilinogen Normal (Negative); Urine WBC < 1 /HPF (0-5)
[2025-02-15 22:31] LABS: BUN/Creatinine Ratio 13.6 (10.0-20.0)
[2025-02-15 22:33] LABS: Blood Urea Nitrogen 16 mg/dL (9-23)
[2025-02-16] MEDS ORDERED: CLON0.1T PO (01:22)
[2025-02-16 01:55] VITALS: BP 159/65; RESP 20; TEMP 98; O2SAT 99
[2025-02-16 02:04] VITALS: PULSE 75
== END 2025-02-16 01:58 | disposition home or self-care (01) ==
LOC: ER 20:56
DX: I11.0 Hypertensive heart disease with heart failure (principal); I50.9 Heart failure, unspecified; R00.2 Palpitations; R42 Dizziness and giddiness; I25.10 Atherosclerotic heart disease of native coronary artery without angina pectoris; E78.5 Hyperlipidemia, unspecified; Z95.1 Presence of aortocoronary bypass graft; Z79.899 Other long term (current) drug therapy; Z79.01 Long term (current) use of anticoagulants
CPT/HCPCS: 36415; 80048; 81001; 84484; 85025

== ENCOUNTER 2025-03-05 20:40 | Inpatient (IN) | payer MEDICAID ==
[~2025-03-05] VITALS: Ht 160 cm; Wt 73.1 kg
[~2025-03-05 20:40] MED LIST: CLON0.1T PO
[2025-03-05 21:10] VITALS: PULSE 137; RESP 16; O2SAT 97
--- NOTE | 2025-03-05 21:15 | ED.PDOC ---
History of Present Illness HPI Comments 74-year-old female with a history of hypertension, CAD, CHF and AFib brought in by family complaining of palpitations, onset last night. Patient states the palpitations are intermittent, associated with elevated blood pressure and dizziness, but no chest pain. Patient also notes shortness of breath when she is experiencing the palpitations. Patient measured her heart rate at 138. Upon arrival, patient is tachycardic in the 130s. Blood pressure of 135/70 mm Hg. Chief Complaint: Palpitations Time Seen by MD: 21:20 Primary Care Provider: UNKNOWN Reviewed Notes: Nurses Notes Allergies: Coded Allergies: NO KNOWN ALLERGIES (Unverified , 12/20/24) Home Meds Active Scripts Clonidine Hydrochloride (Clonidine Hcl) 0.1 Mg Tab, 0.1 MG PO TID for 90 Days, #270 TAB 3 Refills Prov:ARASELI TOLBERT MD 02/16/25 Information Source: Patient Mode of Arrival: Ambulatory Severity: Moderate Timing: Hours Duration: Intermittent Past Medical History PAST MEDICAL HISTORY: AFIB, CAD, CHF, High Lipids, HTN Surgical History: CABG, Denies all surgeries PUNCH MOLDER History: Denies all PUNCH MOLDER Hx Family History Family History: Reviewed,noncontributory to illness Social History Smoker: Non-Smoker Alcohol: Denies ETOH Use Drugs: Denies Drug Use Lives In: Home Constitutional: denies: chills, diaphoresis, fatigue, fever, malaise, sweats, weakness, others EENTM: denies: blurred vision, double vision, ear bleeding, ear discharge, ear drainage, ear pain, ear ringing, eye pain, eye redness, hearing loss, mouth pain, mouth swelling, nasal discharge, nose bleeding, nose congestion, nose pain, photophobia, tearing, throat pain, throat swelling, voice changes, others Respiratory: reports: shortness of breath; denies: cough, hemoptysis, orthopnea, SOB at rest, SOB with excertion, stridor, wheezing, others Cardiovascular: reports: dizzy spells, palpitations; denies: chest pain, diap horesis, Dyspnea on exertion, edema, irregular heart beat, left arm pain, lightheadedness, PND, syncope, others Gastrointestinal: denies: abdomen distended, abdominal pain, blood streaked bowels, constipated, diarrhea, dysphagia, difficulty swallowing, hematemesis, melena, nausea, poor appetite, poor fluid intake, rectal bleeding, rectal pain, vomiting, others Genitourinary: denies: abnormal vagina bleeding, burning, dyspareunia, dysuria, flank pain, frequency, hematuria, incontinence, pain, , vagina discharge, urgency, others Neurological: denies: dizziness, fainting, headache, left sided numbness, left sided weakness, numbness, paresthesia, pre-existing deficit, right sided numbness, right sided weakness, seizure, speech problems, tingling, tremors, weakness, others Musculoskeletal: denies: back pain, gout, joint pain, joint swelling, muscle pain, muscle stiffness, neck pain, others Integumetry: denies: bruises, change in color, change in hair/nails, dryness, laceration, lesions, lumps, rash, wounds, others Allergic/Immunocompromised: denies: Difficulty Healing, Frequent Infections, Hives, Itching, others Hematologic/Lymphatic: denies: anemia, blood clots, easy bleeding, easy bruising, swollen glands, others Endocrine: denies: excessive hunger, excessive sweating, excessive thirst, excessive urination, flushing, intolerance to cold, intolerance to heat, unexplained weight gain, unexplained weight loss, others Psychiatric: denies: anxiety, bipolar disorder, depression, hopeless, panic disorder, schizophrenia, sleepless, suicidal, others Physical Exam General Appearance: Mild Distress HEENT: Other (Pupils and face symmetric. Moist mucous membranes.) Neck: Full Range of Motion, Normal Inspection Respiratory: Decreased Breath Sounds, No Accessory Muscle Use, No Respiratory Distress, Normal Breath Sounds Cardiovascular: Irregular, No JVD, Tachycardia Breast Exam: Deferred Gastrointestinal: Non Tender, Soft Genitalia: Deferred Pelvic: Deferred Rectal: Deferred Extremities: Normal inspection, Normal range of motion, Non-tender Neurologic: Alert (Oriented x4), Normal Affect, Normal Mood, Other (Ambulatory) Cerebellar Function: NOT DONE Reflexes: NOT DONE Skin: Dry, Normal Color, Warm Lymphatic: NOT DONE Was a procedure done? Was a procedure done?: No EKG EKG : Comments Sinus or ectopic atrial tachycardia, rate 137, normal FL and QRS intervals, QTC 494, normal axis, normal QRS, nonspecific T change. Differential Dx Considerations may include: Rapid AFib, sinus tachycardia, multifocal atrial tachycardia, hypovolemia, electrolyte imbalance, DC, CHF, PE, among others X-Ray, Labs, Meds, VS Vital Signs Date Time Temp Pulse Resp B/P (MAP) Pulse Ox O2 Delivery O2 Flow Rate FiO2 03/06/25 00:00 97.4 126 14 110/70 (83) 98 97.4 03/05/25 23:34 03/05/25 22:00 97.6 127 16 111/63 (79) 97 97.6 03/05/25 21:25 98.0 138 22 135/70 (91) 99 98.0 03/05/25 21:15 137 03/05/25 21:10 97.3 137 16 116/72 (87) 97 97.3 03/05/25 21:10 137 16 97 Room Air* 0 21 03/05/25 20:58 137 Lab Test 03/05/25 22:42 03/05/25 22:25 03/05/25 21:33 Range/Units Urine Color Light-yellow Yellow Urine Clarity Clear Clear Urine pH 5.0 5.0-9.0 Urine Specific [place] 1.015 1.001-1.035 Urine Protein Negative Negative Urine Ketones Negative Negative Urine Blood Trace H Negative /uL Urine Nitrite Negative Negative Urine Bilirubin Negative Negative Urine Urobilinogen Normal Negative mg/dL Urine Leukocyte Esterase Negative Negative /uL Urine RBC 1 0 - 4 /hpf Urine Microscopic WBC 2 0-5 /HPF Urine Squamous Epithelial Cells Few <5 /hpf Urine Bacteria None seen None Seen /hpf Urine Hyaline Casts Few 0 - 2 /lpf Urine Granular Casts Few 0 /lpf Urine Mucus Few None Seen Urine Glucose Normal Normal mg/dL Troponin I High Sensitivity 11 11 </=34 ng/L White Blood Count 6.0 4.4-10.8 10^3/uL Red Blood Count 4.97 4.0-5.20 10^6/uL Hemoglobin 13.9 12.2-16.2 g/dL Hematocrit 41.9 36.0-46.0 % Mean Corpuscular Volume 84.4 80.0-100.0 fL Mean Corpuscular Hemoglobin 28.0 28.0-32.0 pg Mean Corpuscular Hemoglobin Concent 33.2 32.0-36.0 g/dL Red Cell Distribution Width 17.6 H 11.8-14.3 % Platelet Count 204 140-450 10^3/uL Mean Platelet Volume 9.0 6.9-10.8 fL Neutrophils (%) (Auto) 52.1 37.0-80.0 % Lymphocytes (%) (Auto) 36.0 10.0-50.0 % Monocytes (%) (Auto) 9.0 0.0-12.0 % Eosinophils (%) (Auto) 2.1 0.0-7.0 % Basophils (%) (Auto) 0.8 0.0-2.0 % Neutrophils # (Auto) 3.1 1.6-8.6 10 ^3/uL Lymphocytes # (Auto) 2.2 0.4-5.4 10 ^3/uL Monocytes # (Auto) 0.5 0-1.3 10 ^3/uL Eosinophils # (Auto) 0.1 0-0.8 10 ^3/uL Basophils # (Auto) 0 0-0.2 10 ^3/uL Nucleated Red Blood Cells 0.1 % Prothrombin Time 12.3 H 9.3-11.8 sec Prothrombin Time INR 1.18 H 0.9-1.15 Activated Partial Thromboplast Time 30.2 24.5-34.5 SEC Sodium Level 141 136-145 mmol/L Potassium Level 3.8 3.5-5.1 mmol/L Chloride Level 106 98-107 mmol/L Carbon Dioxide Level 23 20-31 mmol/L Anion Gap 12 5-15 Blood Urea Nitrogen 22 9-23 mg/dL Creatinine 1.17 H 0.550-1.02 mg/dL Glomerular Filtration Rate Calc 49 >90 mL/min BUN/Creatinine Ratio 18.8 10.0-20.0 Serum Glucose 109 H 74-106 mg/dL Calcium Level 9.8 8.7-10.4 mg/dL B-Type Natriuretic Peptide 424.88 0-100 pg/mL Current Medications Medications (Trade) Dose Ordered Sig/Tal Route Start Time Stop Time Status Last Admin Amiodarone HCl 100 ml @ 600 mls/hr ONCE ONCE IV 03/05/25 21:30 03/05/25 21:39 DC 03/05/25 21:26 Aspirin 325 mg ONCE ONCE PO 03/05/25 21:30 03/05/25 21:31 DC 03/05/25 21:26 EXAM: XY CHEST PORTABLE TECHNIQUE: Single frontal chest radiograph CLINICAL HISTORY: sob COMPARISON: XY CHEST XRAY 1 VIEW on DOS: 02/11/25 Findings/Impression: Frontal chest radiograph demonstrates no acute osseous or superficial soft tissue abnormalities. The trachea is midline. The cardiac silhouette and mediastinum are within normal limits. No pneumothorax, pleural effusions, or consolidations. X-Ray, Labs, Meds, VS Comment 74-year-old female with a history of AFib, CAD, CHF, hypertension and dyslipidemia complaining of palpitations and shortness of breath Vitals remarkable for heart rate 137 Exam remarkable for irregularly irregular tachycardic rhythm Rhythm strip independently interpreted by me: Sinus or ectopic atrial rhythm, rate 137, no PVCs Chest x-ray Findings/Impression: Frontal chest radiograph demonstrates no acute osseous or superficial soft tissue abnormalities. The trachea is midline. The cardiac silhouette and mediastinum are within normal limits. No pneumothorax, pleural effusions, or consolidations. CBC unremarkable, basic metabolic panel remarkable for creatinine 1.17, troponin negative x2, BNP 424.88, UA not consistent with UTI Patient treated with the following in the ED: Amiodarone 150 mg IV bolus, then amiodarone infusion per protocol On re-evaluation, patient's heart rate is down to 120, oxygen saturation is normal on room air and patient appears comfortable. Plan is to admit the patient for rate control and Cardiology evaluation. Time of 1ST Reevaluation: 21:12 Reevaluation 1ST: Unchanged Patient Education/Counseling: Diagnosis, Treatment Family Education/Counseling: No Family Present SEPSIS Sepsis Screen SEPSIS EXCLUSION NOTE: Sepsis Exclusion Note: Patient presents with SIRS criteria, but the SIRS response is attributed to [cardiac arrhythmia ], not a suspected infection. Sepsis bundle is not initiated at this time, due to this reason. Further management will focus on the treatment of the above condition (s). Physician Orders Chest Portable (03/05/25 21:18) Electrocardigram (03/05/25 21:18) Amiodarone 360mg/200ml Premix (Nexterone (03/05/25 21:30) Amiodarone 360mg/200ml Premix (Nexterone (03/06/25 03:30) Vital Signs Date Time Temp Pulse Resp B/P (MAP) Pulse Ox O2 Delivery O2 Flow Rate FiO2 03/06/25 00:00 97.4 126 14 110/70 (83) 98 97.4 03/05/25 23:34 03/05/25 22:00 97.6 127 16 111/63 (79) 97 97.6 03/05/25 21:25 98.0 138 22 135/70 (91) 99 98.0 03/05/25 21:15 137 03/05/25 21:10 97.3 137 16 116/72 (87) 97 97.3 03/05/25 21:10 137 16 97 Room Air* 0 21 03/05/25 20:58 137 Laboratory Tests Test 03/05/25 21:33 White Blood Count 6.0 10^3/uL (4.4-10.8) Medications Medications Dose Ordered Sig/Tal Route Start Time Stop Time Status Last Admin Dose Admin Amiodarone HCl 100 ml @ 600 mls/hr ONCE ONCE IV 03/05/25 21:30 03/05/25 21:39 DC 03/05/25 21:26 Aspirin 325 mg ONCE ONCE PO 03/05/25 21:30 03/05/25 21:31 DC 03/05/25 21:26 Departure 1 Departure Time of Disposition: 01:16 Impression: Primary Impression: Tachycardia Disposition: 09 ADMITTED INPATIENT Admit to: Tele Condition: Guarded Critical Care Note Critical Care Time?: Yes (45 min-critical care time only) Critical care comment: Critical care time including multiple bedside re-evaluations, review of lab and imaging studies, and discussion of the case with the admitting provider. Patient is high risk for hemodynamic decompensation. Stability Stability form required: No Heart Score Heart Score: Heart Score Response (Comments) Value History N/A 0 EKG N/A 0 Age N/A 0 Risk Factors N/A 0 Troponin N/A 0 Total 0 I personally scribed for NILA CARDOSO MD ([email or web address]) on 03/05/25 at 21:15. Electronically submitted by Suman Nolasco ([facility]). I personally scribed for NILA CARDOSO MD (EVARISTO) on 03/05/25 at 21:20. Electronically submitted by Suman Nolasco ([facility]). I personally scribed for NILA CARDOSO MD ([email or web address]) on 03/05/25 at 22:34. Electronically submitted by Suman Nolasco ([email or web address]). NILA CARDOSO MD Mar 05, 2025 21:15
[2025-03-05] MEDS: AMIODARONE BOLUS KIT 100 ML IV ONE (21:26)
[2025-03-05] MEDS: AMIODARONE 360mg/200mL PREMIX 200 ML IV ONE (21:27)
[2025-03-05 21:47] LABS: Hematocrit 41.9 % (36.0-46.0); Hemoglobin 13.9 g/dL (12.2-16.2); Mean Corpuscular Hemoglobin 28.0 pg (28.0-32.0); Mean Corpuscular Volume 84.4 fL (80.0-100.0); Nucleated Red Blood Cells % 0.1 %
--- NOTE | 2025-03-05 21:48 | DVH ---
EXAM: XY CHEST PORTABLE TECHNIQUE: Single frontal chest radiograph CLINICAL HISTORY: sob COMPARISON: XY CHEST XRAY 1 VIEW on DOS: 02/11/25 Findings/Impression: Frontal chest radiograph demonstrates no acute osseous or superficial soft tissue abnormalities. The trachea is midline. The cardiac silhouette and mediastinum are within normal limits. No pneumothorax, pleural effusions, or consolidations.
[2025-03-05 22:04] LABS: Chloride 106 mmol/L (98-107); Potassium 3.8 mmol/L (3.5-5.1); Sodium 141 mmol/L (136-145)
[2025-03-05 22:05] LABS: Anion Gap 12 (5-15); Calcium 9.8 mg/dL (8.7-10.4); Carbon Dioxide 23 mmol/L (20-31)
[2025-03-05 22:07] LABS: INR 1.18 (0.9-1.15); Partial Thromboplastin Time 30.2 SEC (24.5-34.5); Prothrombin Time 12.3 sec (9.3-11.8)
[2025-03-05 22:10] LABS: BUN/Creatinine Ratio 18.8 (10.0-20.0); Blood Urea Nitrogen 22 mg/dL (9-23)
[2025-03-05 22:17] LABS: Glucose 109 mg/dL (74-106)
[2025-03-05 23:48] LABS: Urine Protein, UAD Negative (Negative)
[2025-03-06] VITALS (7 sets, daily range): BP systolic 102–137; BP diastolic 55–78; PULSE 59–141; RESP 16–18; TEMP 97.4–98.1; O2SAT 97–100
[2025-03-06] MEDS ORDERED: ONDANSETRON HCL 4 MG/2 ML VIAL IV PRN (01:30)
[2025-03-06] MEDS ORDERED: HYDROcodone-ACET 5/325MG TAB PO PRN (01:30)
[2025-03-06] MEDS ORDERED: DOCUSATE SOD 100 MG CAP PO PRN (01:30)
[2025-03-06] MEDS: FUROSEMIDE 20 MG/2 ML VIAL IV ONE (01:56)
--- NOTE | 2025-03-06 02:24 | DVHHP2 ---
History of Present Illness Reason for Visit: Palpitations History of Present Illness The patient is a 74-year-old female with past medical history of AFib, Coronary artery disease, CHF, hyperlipidemia, and hypertension who presented to [facility] ED with complaint of palpitations. Patient reports she has been experiencing intermittent palpitations associated with elevated blood pressure, dizziness, shortness of breaths, getting worse that prompted this visit. Patient was seen and evaluated in the ED, laboratory data shows WBC 6.0, platelets 204, sodium 141, potassium 3.8, BUN 22, creatinine 1.17, glucose 109, calcium 9.8, troponin 11, BNP 424.88, blood pressure 110/63, heart rate 138 trending down to 120, temperature 97.4 F, O2 saturation 98% on oxygen. Patient was started on amiodarone drip, please see medication orders section in the computer. On my assessment, patient denied chest pain, no headache, no dizziness, no diaphoresis , currently on oxygen, no nausea, no vomiting, no fever, no chills. Patient was admitted for further evaluation and medical management. Past Medical History AFIB, CAD, CHF, High Lipids, HTN Past Surgical History CABG Family History Reviewed, noncontributory to the management of this case. Past Social History The patient lives at home, denies smoking, alcohol or illicit drugs abuse. Review of Systems Constitutional: Yes: Weakness; No: Fever, Chills, Sweats, Malaise, Other Eyes: No: Pain, Vision change, Conjunctivae inflammation, Eyelid inflammation, Other, Redness ENT: No: Ear pain, Ear discharge, Nose pain, Nose discharge, Nose congestion, Mouth pain, Mouth swelling, Throat pain, Throat swelling, Other Respiratory: No: Cough, Dry, Shortness of breath, SOB with excertion, Wheezing, Hemoptysis, Pleuritic Pain, Sputum, Wheezing, Other Cardiovascular: Palpitations; No: Chest Pain, Orthopnea, Paroxysmal Noc. Dyspnea, Edema, Lt Headedness, Other Gastrointestinal: No: Nausea, Vomiting, Abdominal Pain, Diarrhea, Constipation, Melena, Hematochezia, Other Genitourinary: No Dysuria, No Frequency, No Incontinence, No Hematuria, No Retention, No Other Musculoskeletal: No: other, neck pain, shoulder pain, arm pain, back pain, hand pain, leg pain, foot pain Skin: No: Rash, Lesions, Jaundice, Bruising, Other Neurological: No: Weakness, Numbness, Incoordination, Change in speech, Confusion, Seizures, Other Allergies: Coded Allergies: NO KNOWN ALLERGIES (Unverified , 12/20/24) Medications Current Medications Medications Dose Ordered Sig/Tal Route Start Time Stop Time Status Last Admin Dose Admin Aspirin 81 mg DAILY PO 03/06/25 10:00 Atorvastatin Calcium 10 mg HS PO 03/06/25 22:00 Furosemide 20 mg DAILY IV 03/06/25 10:00 Sodium Chloride 10 ml Q8HR IV 03/06/25 06:00 Acetaminophen/ Hydrocodone Bitart 1 tab Q4HP PRN PO 03/06/25 01:30 Ondansetron HCl 4 mg Q4HP PRN IV 03/06/25 01:30 Docusate Sodium 100 mg BIDPRN PRN PO 03/06/25 01:30 Acetaminophen 650 mg Q6HP PRN PO 03/06/25 01:30 Exam Vital Signs Vital Signs Date Time Temp Pulse Resp B/P (MAP) Pulse Ox O2 Delivery O2 Flow Rate FiO2 03/06/25 02:07 98.4 123 20 117/71 (86) 98 98.4 03/05/25 21:10 Room Air* 0 21 General Appearance: Alert, Oriented X3, Cooperative, No acute distress HEENT: Atraumatic, PERRLA, EOMI, Mucous membr. moist/pink Respiratory: Normal air movement Cardiovascular: Normal S1, Normal S2, No murmurs, Other (Irregular rate) Abdominal: Normal bowel sounds, Soft, No tenderness, No hepatospenomegaly, No masses Extremities: No clubbing, No cyanosis, No edema, Normal pulses, No tenderness/swelling Skin: No rashes, No significant lesion Neuro: Normal speech, Normal tone, Sensation intact, Cranial nerves 3-12 NL, Reflexes 2+, Other (Generalized weakness) Psych/Mental Status: Mental status NL, Mood NL Labs/Xrays Labs Test 03/05/25 22:42 03/05/25 22:25 03/05/25 21:33 Range/Units Urine Color Light-yellow Yellow Urine Clarity Clear Clear Urine pH 5.0 5.0-9.0 Urine Specific [place] 1.015 1.001-1.035 Urine Protein Negative Negative Urine Ketones Negative Negative Urine Blood Trace H Negative /uL Urine Nitrite Negative Negative Urine Bilirubin Negative Negative Urine Urobilinogen Normal Negative mg/dL Urine Leukocyte Esterase Negative Negative /uL Urine RBC 1 0 - 4 /hpf Urine Microscopic WBC 2 0-5 /HPF Urine Squamous Epithelial Cells Few <5 /hpf Urine Bacteria None seen None Seen /hpf Urine Hyaline Casts Few 0 - 2 /lpf Urine Granular Casts Few 0 /lpf Urine Mucus Few None Seen Urine Glucose Normal Normal mg/dL Troponin I High Sensitivity 11 </=34 ng/L White Blood Count 6.0 4.4-10.8 10^3/uL Red Blood Count 4.97 4.0-5.20 10^6/uL Hemoglobin 13.9 12.2-16.2 g/dL Hematocrit 41.9 36.0-46.0 % Mean Corpuscular Volume 84.4 80.0-100.0 fL Mean Corpuscular Hemoglobin 28.0 28.0-32.0 pg Mean Corpuscular Hemoglobin Concent 33.2 32.0-36.0 g/dL Red Cell Distribution Width 17.6 H 11.8-14.3 % Platelet Count 204 140-450 10^3/uL Mean Platelet Volume 9.0 6.9-10.8 fL Neutrophils (%) (Auto) 52.1 37.0-80.0 % Lymphocytes (%) (Auto) 36.0 10.0-50.0 % Monocytes (%) (Auto) 9.0 0.0-12.0 % Eosinophils (%) (Auto) 2.1 0.0-7.0 % Basophils (%) (Auto) 0.8 0.0-2.0 % Neutrophils # (Auto) 3.1 1.6-8.6 10 ^3/uL Lymphocytes # (Auto) 2.2 0.4-5.4 10 ^3/uL Monocytes # (Auto) 0.5 0-1.3 10 ^3/uL Eosinophils # (Auto) 0.1 0-0.8 10 ^3/uL Basophils # (Auto) 0 0-0.2 10 ^3/uL Nucleated Red Blood Cells 0.1 % Prothrombin Time 12.3 H 9.3-11.8 sec Prothrombin Time INR 1.18 H 0.9-1.15 Activated Partial Thromboplast Time 30.2 24.5-34.5 SEC Sodium Level 141 136-145 mmol/L Potassium Level 3.8 3.5-5.1 mmol/L Chloride Level 106 98-107 mmol/L Carbon Dioxide Level 23 20-31 mmol/L Anion Gap 12 5-15 Blood Urea Nitrogen 22 9-23 mg/dL Creatinine 1.17 H 0.550-1.02 mg/dL Glomerular Filtration Rate Calc 49 >90 mL/min BUN/Creatinine Ratio 18.8 10.0-20.0 Serum Glucose 109 H 74-106 mg/dL Calcium Level 9.8 8.7-10.4 mg/dL B-Type Natriuretic Peptide 424.88 0-100 pg/mL PATIENT: VINAY FLYNNACCT: [id number] UNIT: [id number] : 1950 LOC: ER ROOM / BED: / AGE / SEX: 74 / F ADM STATUS: REG ER SERVICE 17 ORDERING PHYSICIAN: NILA CARDOSO MD PROCEDURE(s): CXRP - CHEST PORTABLE REASON: sob ORDER NUMBER(s): [id number], ACCESSION NUMBER(s): [id number] EXAM: XY CHEST PORTABLE TECHNIQUE: Single frontal chest radiograph CLINICAL HISTORY: sob COMPARISON: XY CHEST XRAY 1 VIEW on DOS: 02/11/25 Findings/Impression: Frontal chest radiograph demonstrates no acute osseous or superficial soft tissue abnormalities. The trachea is midline. The cardiac silhouette and mediastinum are within normal limits. No pneumothorax, pleural effusions, or consolidations. Assessment/Plan Assessment/Plan Palpitations Generalized weakness Acute exacerbation of congestive heart failure Plan 1. Admit to telemetry unit 2. Breathing treatment 3. Pain control management 4. Management of fluids and electrolytes 5. Consultation for Cardiology 6. Diagnostic tests chest x-ray 7. DVT prophylaxis-on aspirin 8. Repeat labs CBC, CMP in a.m. 9. Continue with current medical management 10. Treatment plan discussed with patient and RN. Patient verbalized understanding. Plan discussed with: Patient, Other (RN) My Orders Orders - GURWINDER WEST DNP Procedure Category Date Status Time Complete Blood Count LAB 03/06/25 Logged 04:00 Comprehensive LAB 03/06/25 Logged Metabolic Panel 04:00 Aspirin Tablet PHA 03/06/25 In Process 10:00 Atorvastatin (Lipitor) PHA 03/06/25 In Process 22:00 Furosemide Injection PHA 03/06/25 In Process (Lasix Injection) 10:00 Allergies CANDACE 03/06/25 In Process 01:25 Code Status CODE 03/06/25 Transmitted 01:25 Sodium Chloride Lock PHA 03/06/25 In Process (Saline Lock Ns) 06:00 Oxygen Per Hour RT 03/06/25 Transmitted 01:25 Hydrocodone-Acet PHA 03/06/25 In Process 5/325mg Tab ([place] 01:30 Ondansetron Hcl PHA 03/06/25 In Process (Zofran) 01:30 Docusate Sodium PHA 03/06/25 In Process Capsule (Colace 01:30 Fall Risk Precautions CANDACE 03/06/[address] 01:25 Complete Blood Count LAB 03/07/25 Verified 04:00 Comprehensive LAB 03/07/25 Verified Metabolic Panel 04:00 Cardiac DIET 03/06/25 Transmitted Diet-2gna,Lofat,Lochol Breakfast Echo 2d Mode Cardiac US 03/06/25 Logged DOP 01:25 Condition: Serious CANDACE 03/06/25 In Process 01:25 Acetaminophen Tablet PHA 03/06/25 In Process (Tylenol Tablet) 01:30 Maintain Bed Rest CANDACE 03/06/25 In Process 01:25 Sequential CANDACE 03/06/25 In Process Compression Device Problem List: (1) Tachycardia (2) Generalized weakness (3) Acute exacerbation of congestive heart failure Date of Service: Mar 06, 2025 Billing Provider: GURWINDER WEST DNP Common Visit Codes: 48017-[id number] INP/OBS CARE (HIGH) GURWINDER WEST DNP Mar 06, 2025 02:24
[2025-03-06] MEDS ORDERED: NITROGLYCERIN 0.4 MG SL TAB SL PRN (02:30)
[2025-03-06] MEDS ORDERED: MORPHINE SULFATE INJ 2 MG/ml SYRG IV PRN (02:30)
[2025-03-06] MEDS: AMIODARONE 360mg/200mL PREMIX 200 ML IV SCH (03:01)
[2025-03-06 04:16] LABS: Hematocrit 42.3 % (36.0-46.0); Hemoglobin 14.0 g/dL (12.2-16.2); Mean Corpuscular Hemoglobin 28.1 pg (28.0-32.0); Mean Corpuscular Volume 84.6 fL (80.0-100.0); Nucleated Red Blood Cells % 0.1 %
[2025-03-06 04:30] LABS: Alanine Aminotransferase 11 U/L (7-40); Albumin 4.3 g/dL (3.2-4.8); Alkaline Phosphatase 107 U/L (46-116); Anion Gap 9 (5-15); BUN/Creatinine Ratio 20.0 (10.0-20.0); Bilirubin, Total 0.5 mg/dL (0.2-1.0); Blood Urea Nitrogen 21 mg/dL (9-23); Calcium 9.2 mg/dL (8.7-10.4); Carbon Dioxide 27 mmol/L (20-31); Glucose 104 mg/dL (74-106); Potassium 3.8 mmol/L (3.5-5.1); Sodium 143 mmol/L (136-145); Total Protein 7.2 g/dL (5.7-8.2)
[2025-03-06 04:38] LABS: Chloride 107 mmol/L (98-107)
[2025-03-06] MEDS ORDERED: APIX2.5T PO (05:35)
[2025-03-06] MEDS ORDERED: ATOR10TA PO (05:35)
[2025-03-06] MEDS ORDERED: METO25TA5 PO (05:35)
[2025-03-06] MEDS: SODIUM CHLOR 0.9% PF (SALINE LOCK) 10ML VIAL/SYR IV SCH (06:00)
[2025-03-06] MEDS ORDERED: APIX5TAB PO (07:54)
[2025-03-06] MEDS ORDERED: METO25TA93 PO (07:54)
[2025-03-06] MEDS: FUROSEMIDE 20 MG/2 ML VIAL IV SCH (09:00)
[2025-03-06] MEDS: APIXABAN 5 MG TAB PO SCH (10:00)
[2025-03-06] MEDS ORDERED: METOPROLOL SUCCINATE XL 50 MG TAB PO SCH (10:00)
--- NOTE | 2025-03-06 11:53 | DVHSR ---
APPROVED REPORT EXAM: Two-dimensional and M-mode echocardiogram with Doppler and color Doppler. Blood Pressure: 115/72 mmHg INDICATION Chf exacrbation, unspecified Surgery/Intervention Valve Replacement: Mechanical Type: Mitral RISK FACTORS Height: 63, Weight: 161 DIMENSIONS LVDd4.7 (3.8-5.7cm)LA (2D)4.1 (1.9-4.0cm)Aortic Root4.5 (2.0-3.7cm) LVDs3.6 (2.5-4.0cm)LA (MM) (1.9-4.0cm)Aortic Cusp Exc1.6 (1.5-2.0cm) EF (%) 47.0 (55-70%)Rt. Atrium3.8 (1.9-4.0cm)Asc. Aorta cm IVSd1.2 (0.7-1.1cm)RV (D) (1.8-2.4cm) PWd1.4 (0.7-1.1cm) Mitral Valve MitralMitral Stenosis E wave1.30m/sMV Mean GR.2mmHg A wave0.65m/sMV Peak GR.73mmHg E/A ratio2.02D MVAcm2 DECEL [id number] 1/2 [id number] IVRTmsDop MVA2.59cm2 Aortic Valve Aortic ValveAortic Stenosis V10.98m/Danny Mean GR.3mmHg V21.15m/Danny Peak GR.5mmHg LVOT Diameter2.0 (1.8-2.4cm)Doppler AVA2.68cm2 AI P 1/2 [id number] Pulmonic Valve V20.86m/s Tricuspid Valve TR Velocity2.21m/s [id number] Conclusion lvef 50% postop septum left atrium enlarged s/p bioprosthetic MV replacement, mean gradient of 2, no sig MR
--- NOTE | 2025-03-06 14:27 | DVHINCON2 ---
RAMONA HOLLAND [facility] 03/06/25 1427: Date Seen: Mar 06, 2025 Referring Physician MIR Benton Reason for Consultation Palpitations History of Present Illness This is a pleasant Togolese-speaking 74-year-old female patient who presents to emergency room with chief complaint of palpitations. The patient reports that the palpitations began approximately two days ago at about 7:30 p.m.. She describes associated dizziness and shortness of breath. She decided to come to the emergency room for further evaluation. 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 awake overnight monitor reviewed, patient was noted to be in atrial fibrillation and flutter overnight and was given amiodarone IV via hospitalist orders and has now converted back into a normal rhythm. At the time of assessment, the patient is back in a normal sinus rhythm on court monitor. Significant past medical history includes severe coronary artery disease status post triple-vessel CABG, paroxysmal atrial fibrillation (on Eliquis), history of heart failure, mitral valve regurgitation status post bioprosthetic mitral valve replacement, history of supraventricular tachycardia, hypertension, dyslipidemia, CVA without residual deficit, and obesity. 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 Past Medical History Past medical history reviewed. No other significant than mentioned above. Past Surgical History Triple-vessel CABG Mitral valve replacement Family History: FH: cancer G8 FATHER FH: heart disease G8 MOTHER Family History Family history reviewed. Social History Denies the use of tobacco, alcohol or illicit drugs. Allergies: Coded Allergies: NO KNOWN ALLERGIES (Unverified , 12/20/24) Home Meds Active Scripts Clonidine Hydrochloride (Clonidine Hcl) 0.1 Mg Tab, 0.1 MG PO TID for 90 Days, #270 TAB 3 Refills Prov:ARASELI TOLBERT MD 02/16/25 Reported Medications Apixaban Base (ELIQUIS) 5 Mg Tab, 1 TAB PO BID 03/06/25 Metoprolol Succinate (Metoprolol Succinate Er) 25 Mg Tab, 1 TAB PO BID 03/06/25 Atorvastatin Calcium (Lipitor) 10 Mg Tab, 1 TAB PO DAILY, #90 TAB 1 Refill 03/06/25 Discontinued Reported Medications Apixaban Base (ELIQUIS) 2.5 Mg Tab, PO BID, TAB 03/06/25 Metoprolol Tartrate (Metoprolol Tartrate) 25 Mg Tab, 25 MG PO for 30 Days, MG 03/06/25 Home Meds Home medications reviewed. Current Medications Current Medications Medications (Trade) Dose Ordered Sig/Tal Route PRN Reason Start Time Stop Time Status Last Admin Aspirin 81 mg DAILY PO 03/06/25 10:00 03/06/25 08:59 Atorvastatin Calcium (Lipitor) 10 mg HS PO 03/06/25 22:00 03/06/25 08:57 DC Furosemide (Lasix Injection) 20 mg DAILY IV 03/06/25 10:00 03/06/25 09:00 Sodium Chloride (Saline Lock Ns) 10 ml Q8HR IV 03/06/25 06:00 03/06/25 13:34 Acetaminophen/ Hydrocodone Bitart ([place] 5/325MG Tab) 1 tab Q4HP PRN PO MODERATE PAIN (4-6 PAIN SCALE) 03/06/25 01:30 Ondansetron HCl (Zofran) 4 mg Q4HP PRN IV NAUSEA / VOMITING 03/06/25 01:30 Docusate Sodium (Colace Capsule) 100 mg BIDPRN PRN PO FOR CONSTIPATION 03/06/25 01:30 Acetaminophen (Tylenol Tablet) 650 mg Q6HP PRN PO PAIN SCALE 1-3 OR TEMP>100.4 03/06/25 01:30 Nitroglycerin (Ntrostat Sublingual) 0.4 mg Q5MINP PRN SL FOR CHEST PAIN 03/06/25 02:30 Morphine Sulfate 2 mg Q30M PRN IV FOR CHEST PAIN 03/06/25 02:30 Clonidine HCl (Catapres Tablet) 0.1 mg TID PO 03/06/25 14:00 Atorvastatin Calcium (Lipitor) 10 mg HS PO 03/06/25 22:00 Apixaban (Eliquis) 5 mg BID PO 03/06/25 10:00 03/06/25 10:00 Metoprolol Succinate (Toprol Xl) 25 mg BID PO 03/06/25 10:00 Hold Review of Systems Constitutional: No symptom reported Ears, Nose, & Throat: No symptom reported Eyes: No symptom reported Neurological: No symptoms reported Pulmonary/Respiratory: No symptoms reported Cardiovascular: Palpitations Gastrointestinal: No symptom reported Genitourinary: No symptom reported Musculoskeletal: No symptom reported Skin: No symptom reported Psychiatric: No symptom reported Endocrine: No symptom reported Hematologic/Lymphatic: No symptom reported Vital Signs Vital Signs Date Time Temp Pulse Resp B/P (MAP) Pulse Ox O2 Delivery O2 Flow Rate FiO2 03/06/25 12:35 97.5 64 16 123/78 (93) 99 97.5 03/06/25 08:29 Room Air* 0 21 Physical Exam General Appearance: Cooperative. Well-developed. Well-nourished. No acute distress. Pulmonary/Respiratory: Clear, bilateral breaths sounds. Cardiovascular/Chest: Regular rate and rhythm. Peripheral Pulses: 2+ Radial (R). 2+ Radial (L). 2+ Pedal (R). 2+ Pedal (L) Abdominal Exam: Normal bowel sounds. Ankle Exam: Negative ankle edema Lower extremities: Negative lower extremity edema Neuro/Mental Status: A/OX4, coherent. Thoughts/Psych: Normal thought pattern. Appropriate mood and affect. Good judgment and insight. Appearance: No acute distress. Skin Exam: Normal inspection. Normal color. Warm and dry. Labs/Diagnostic Data Labs Test 03/06/25 04:02 03/05/25 22:42 03/05/25 22:25 03/05/25 21:33 Range/Units White Blood Count 6.0 4.4-10.8 10^3/uL Red Blood Count 5.00 4.0-5.20 10^6/uL Hemoglobin 14.0 12.2-16.2 g/dL Hematocrit 42.3 36.0-46.0 % Mean Corpuscular Volume 84.6 80.0-100.0 fL Mean Corpuscular Hemoglobin 28.1 28.0-32.0 pg Mean Corpuscular Hemoglobin Concent 33.2 32.0-36.0 g/dL Red Cell Distribution Width 17.9 H 11.8-14.3 % Platelet Count 195 140-450 10^3/uL Mean Platelet Volume 9.1 6.9-10.8 fL Neutrophils (%) (Auto) 45.4 37.0-80.0 % Lymphocytes (%) (Auto) 41.5 10.0-50.0 % Monocytes (%) (Auto) 10.0 0.0-12.0 % Eosinophils (%) (Auto) 2.3 0.0-7.0 % Basophils (%) (Auto) 0.8 0.0-2.0 % Neutrophils # (Auto) 2.7 1.6-8.6 10 ^3/uL Lymphocytes # (Auto) 2.5 0.4-5.4 10 ^3/uL Monocytes # (Auto) 0.6 0-1.3 10 ^3/uL Eosinophils # (Auto) 0.1 0-0.8 10 ^3/uL Basophils # (Auto) 0.1 0-0.2 10 ^3/uL Nucleated Red Blood Cells 0.1 % Sodium Level 143 136-145 mmol/L Potassium Level 3.8 3.5-5.1 mmol/L Chloride Level 107 98-107 mmol/L Carbon Dioxide Level 27 20-31 mmol/L Anion Gap 9 5-15 Blood Urea Nitrogen 21 9-23 mg/dL Creatinine 1.05 H 0.550-1.02 mg/dL Glomerular Filtration Rate Calc 56 >90 mL/min BUN/Creatinine Ratio 20.0 10.0-20.0 Serum Glucose 104 74-106 mg/dL Calcium Level 9.2 8.7-10.4 mg/dL Total Bilirubin 0.5 0.2-1.0 mg/dL Aspartate Amino Transferase (AST) 23 13-40 U/L Alanine Aminotransferase (ALT) 11 7-40 U/L Alkaline Phosphatase 107 46-116 U/L Total Protein 7.2 5.7-8.2 g/dL Albumin 4.3 3.2-4.8 g/dL Urine Color Light-yellow Yellow Urine Clarity Clear Clear Urine pH 5.0 5.0-9.0 Urine Specific [place] 1.015 1.001-1.035 Urine Protein Negative Negative Urine Ketones Negative Negative Urine Blood Trace H Negative /uL Urine Nitrite Negative Negative Urine Bilirubin Negative Negative Urine Urobilinogen Normal Negative mg/dL Urine Leukocyte Esterase Negative Negative /uL Urine RBC 1 0 - 4 /hpf Urine Microscopic WBC 2 0-5 /HPF Urine Squamous Epithelial Cells Few <5 /hpf Urine Bacteria None seen None Seen /hpf Urine Hyaline Casts Few 0 - 2 /lpf Urine Granular Casts Few 0 /lpf Urine Mucus Few None Seen Urine Glucose Normal Normal mg/dL Troponin I High Sensitivity 11 </=34 ng/L Prothrombin Time 12.3 H 9.3-11.8 sec Prothrombin Time INR 1.18 H 0.9-1.15 Activated Partial Thromboplast Time 30.2 24.5-34.5 SEC B-Type Natriuretic Peptide 424.88 0-100 pg/mL Microbiology Date/Time Source Procedure Growth Status 03/06/25 06:30 Nose MRSA Screen - Final Complete Assessment Narrow complex tachycardia, atrial flutter versus AVNRT, now back in normal sinus rhythm Paroxysmal atrial fibrillation, stage 3A (on Eliquis) History of supraventricular tachycardia Chronic HFpEF, NYHA class II Severe coronary artery disease status post triple-vessel CABG Mitral valve regurgitation status post bioprosthetic mitral valve replacement Hypertension Dyslipidemia CVA without residual deficit Obesity Plan/Recommendation We will continue with the following plan/recommendations (Dr. Frausto): * Transthoracic echocardiogram reveals EF 50% * [id number] VASc score: 7 points, HAS-BLED score: 2 points * Continue beta-eloy for rate control * Discontinue amiodarone; patient now in normal sinus rhythm and was becoming bradycardic * Continue NOAC therapy, Eliquis * Monitor and replete electrolytes as needed, keep potassium greater than four and magnesium greater than two * Continue single antiplatelet therapy and lipid-lowering agent * Cardiac surveillance Case discussed with . There is no further inpatient cardiac workup indicated at this time. Thank you for allowing us to care for this patient. Please call with any questions or concerns. Critical care time spent: 44 minutes This medical document was created using an electronic medical record system with voice recognition software and computerized dictation system. Although this document has been carefully reviewed, there might still be some phonetic and typographical errors. Occasional wrong-word or ``sound-alike substitutions may have occurred due to the inherent limitations of voice recognition software. These areas are purely typographical due to imperfections of the software programs and do not reflect any compromise in the patient's medical care. Please read the chart carefully and recognize, using context, where these substitutions have occurred. Plan discussed with: Patient NYHA Physical activity limitations: Class2(Slight)fatigue,sob (palpitatns, angina w activityv) Date of Service: Mar 06, 2025 Billing Provider: RAMONA HOLLAND Cardiology Common Codes: [id number] INP/OBS CARE (High) Cardiology Consultation Codes: [id number] CONSULT <45MIN STEPHON FRAUSTO MD 03/07/25 0656: Family History: FH: cancer G8 FATHER FH: heart disease G8 MOTHER Allergies: Coded Allergies: NO KNOWN ALLERGIES (Unverified , 12/20/24) Home Meds Active Scripts Clonidine Hydrochloride (Clonidine Hcl) 0.1 Mg Tab, 0.1 MG PO TID for 90 Days, #270 TAB 3 Refills Prov:ARASELI TOLBERT MD 02/16/25 Reported Medications Apixaban Base (ELIQUIS) 5 Mg Tab, 1 TAB PO BID 03/06/25 Metoprolol Succinate (Metoprolol Succinate Er) 25 Mg Tab, 1 TAB PO BID 03/06/25 Atorvastatin Calcium (Lipitor) 10 Mg Tab, 1 TAB PO DAILY, #90 TAB 1 Refill 03/06/25 Discontinued Reported Medications Apixaban Base (ELIQUIS) 2.5 Mg Tab, PO BID, TAB 03/06/25 Metoprolol Tartrate (Metoprolol Tartrate) 25 Mg Tab, 25 MG PO for 30 Days, MG 03/06/25 Plan/Recommendation EXTENSIVELY REVIEWED PT [facility] RECORDS SHES A VERY POOR HISTORIAN WITH NO KNOWLEDGE OF HER HEALTH S/P CABG AND MVR APPEARS TO HAVE AVNRT VS AFL-- CONT DOAC INCREASE BB 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
--- NOTE | 2025-03-06 17:57 | DVHPN2 ---
Subjective Overnight events noted patient is currently off of amiodarone drip. Changes from previous H/P or p: No Changes Eyes: No Pain, No Vision change, No Conjunctivae inflammation, No Eyelid inflammation, No Other, No Redness ENT: No Ear pain, No Ear discharge, No Nose pain, No Nose discharge, No Nose congestion, No Mouth pain, No Mouth swelling, No Throat pain, No Throat swelling, No Other Cardiovascular: No Chest Pain; Palpitations; No Orthopnea, No Paroxysmal Noc. Dyspnea, No Edema, No Lt Headedness, No Other Respiratory: No Cough, No Dry, No Shortness of breath, No SOB with excertion, No Wheezing, No Hemoptysis, No Pleuritic Pain, No Sputum, No Other Gastrointestinal: No Nausea, No Vomiting, No Abdominal Pain, No Diarrhea, No Constipation, No Melena, No Hematochezia, No Other Genitourinary: No Dysuria, No Frequency, No Incontinence, No Hematuria, No Retention, No Other Musculoskeletal: No other, No neck pain, No shoulder pain, No arm pain, No back pain, No hand pain, No leg pain, No foot pain Skin: No Rash, No Lesions, No Jaundice, No Bruising, No Other Objective Vitals Vital Signs Date Time Temp Pulse Resp B/P (MAP) Pulse Ox O2 Delivery O2 Flow Rate FiO2 03/06/25 16:56 97.4 67 16 137/75 (95) 97 97.4 03/06/25 08:29 Room Air* 0 21 Intake/Output Intake and Output 03/06/25 07:00 Intake Total 283.32 ml Balance 283.32 ml IV Total 283.32 ml Exam HEENT pupils are reactive Neck is supple CV is S1-S2 regular rate and rhythm Respiratory diminished breath sounds bases GI positive bowel sound 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 no edema 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 Medications Current Medications Medications Dose Ordered Sig/Tal Route Start Time Stop Time Status Last Admin Dose Admin Aspirin 81 mg DAILY PO 03/06/25 10:00 03/06/25 08:59 81 MG Furosemide 20 mg DAILY IV 03/06/25 10:00 03/06/25 09:00 20 MG Sodium Chloride 10 ml Q8HR IV 03/06/25 06:00 03/06/25 13:34 10 ML Acetaminophen/ Hydrocodone Bitart 1 tab Q4HP PRN PO 03/06/25 01:30 Ondansetron HCl 4 mg Q4HP PRN IV 03/06/25 01:30 Docusate Sodium 100 mg BIDPRN PRN PO 03/06/25 01:30 Acetaminophen 650 mg Q6HP PRN PO 03/06/25 01:30 Nitroglycerin 0.4 mg Q5MINP PRN SL 03/06/25 02:30 Morphine Sulfate 2 mg Q30M PRN IV 03/06/25 02:30 Clonidine HCl 0.1 mg TID PO 03/06/25 14:00 Atorvastatin Calcium 10 mg HS PO 03/06/25 22:00 Apixaban 5 mg BID PO 03/06/25 10:00 03/06/25 10:00 5 MG Metoprolol Tartrate 25 mg BID PO 03/06/25 22:00 Laboratory Results Laboratory Tests 03/06/25 04:02 Chemistry Test 03/05/25 21:33 03/06/25 04:02 Calcium Level 9.8 mg/dL (8.7-10.4) 9.2 mg/dL (8.7-10.4) Albumin 4.3 g/dL (3.2-4.8) Magnesium Level 2.2 mg/dL (1.6-2.6) Total Protein 7.2 g/dL (5.7-8.2) Coagulation Test 03/05/25 21:33 Prothrombin Time 12.3 sec (9.3-11.8) H Prothrombin Time INR 1.18 (0.9-1.15) H Activated Partial Thromboplast Time 30.2 SEC (24.5-34.5) Cardiac Markers Test 03/05/25 21:33 B-Type Natriuretic Peptide 424.88 pg/mL (0-100) LFT Test 03/06/25 04:02 Alanine Aminotransferase (ALT) 11 U/L (7-40) Alkaline Phosphatase 107 U/L (46-116) Aspartate Amino Transferase (AST) 23 U/L (13-40) Total Bilirubin 0.5 mg/dL (0.2-1.0) HgA1c, TSH Test 03/06/25 04:02 Thyroid Stimulating Hormone (TSH) 2.87 uIU/mL (0.55-4.78) Urinalysis Test 03/05/25 22:42 Urine Color Light-yellow (Yellow) Urine Clarity Clear (Clear) Urine pH 5.0 (5.0-9.0) Urine Specific [place] 1.015 (1.001-1.035) Urine Protein Negative (Negative) Urine Ketones Negative (Negative) Urine Blood Trace /uL (Negative) H Urine Nitrite Negative (Negative) Urine Bilirubin Negative (Negative) Urine Urobilinogen Normal mg/dL (Negative) Urine Leukocyte Esterase Negative /uL (Negative) Urine RBC 1 /hpf (0 - 4) Urine Microscopic WBC 2 /HPF (0-5) Urine Squamous Epithelial Cells Few /hpf (<5) Urine Bacteria None seen /hpf (None Seen) Urine Hyaline Casts Few /lpf (0 - 2) Urine Granular Casts Few /lpf (0) Urine Mucus Few (None Seen) Urine Glucose Normal mg/dL (Normal) Microbiology Microbiology Date/Time Source Procedure Growth Status 03/06/25 06:30 Nose MRSA Screen - Final Complete Assessment/Plan Assessment/Plan 74-year-old female with a known history of AFib, history of SVT, congestive heart failure, coronary artery disease status post triple-vessel disease, mitral valve regurgitation status post mitral valve replacement, hypertension, previous history of CVA without any deficit presented to the hospital with a palpitation found to have 1. AFib with a RVR currently rate controlled currently off the amiodarone drip 2. Chronic congestive heart failure unspecified 3. Previous history of SVT 4. CAD status post CABG 5. Mitral valve regurgitation status post mitral valve replacement 6. History of CVA without any deficit 8. Hypertension 9. Dyslipidemia -continue current meds, 2D echo cardiology consultation, discharge plan Plan discussed with: Patient Date of Service: Mar 06, 2025 Billing Provider: CHARIS ROLLINS MD Common Visit Codes: [id number] INP/OBS CARE(MOD) CHARIS ROLLINS MD Mar 06, 2025 17:57
[2025-03-06] MEDS ORDERED: ATORVASTATIN 20 MG TAB PO SCH (22:00)
[2025-03-06] MEDS: ATORVASTATIN 20 MG TAB PO SCH (22:04)
[2025-03-06] MEDS: METOPROLOL TARTRATE 25 MG TAB PO SCH (22:05)
[2025-03-07] VITALS (8 sets, daily range): BP systolic 106–161; BP diastolic 47–83; PULSE 61–69; RESP 18–19; TEMP 97.7–98.5; O2SAT 96–99
[2025-03-07 06:49] LABS: Hematocrit 38.1 % (36.0-46.0); Hemoglobin 12.9 g/dL (12.2-16.2); Mean Corpuscular Hemoglobin 28.7 pg (28.0-32.0); Mean Corpuscular Volume 85.0 fL (80.0-100.0); Nucleated Red Blood Cells % 0.1 %
--- NOTE | 2025-03-07 06:56 | ECG ---
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
[2025-03-07 07:00] LABS: Albumin 4.0 g/dL (3.2-4.8); Alkaline Phosphatase 94 U/L (46-116); Anion Gap 9 (5-15); BUN/Creatinine Ratio 22.2 (10.0-20.0); Bilirubin, Total 0.8 mg/dL (0.2-1.0); Calcium 9.4 mg/dL (8.7-10.4); Carbon Dioxide 25 mmol/L (20-31); Glucose 83 mg/dL (74-106); Potassium 3.6 mmol/L (3.5-5.1); Sodium 142 mmol/L (136-145); Total Protein 6.6 g/dL (5.7-8.2)
[2025-03-07 07:13] LABS: Alanine Aminotransferase < 9 U/L (7-40); Blood Urea Nitrogen 24 mg/dL (9-23); Chloride 108 mmol/L (98-107)
[2025-03-07] MEDS: ACETAMINOPHEN 325 MG TAB PO PRN (15:22)
--- NOTE | 2025-03-07 17:12 | DVHPN2 ---
Subjective Overnight events noted patient is currently off of amiodarone drip. Only on beta eloy. Complaining of headache and seven dizziness. Changes from previous H/P or p: No Changes Eyes: No Pain, No Vision change, No Conjunctivae inflammation, No Eyelid inflammation, No Other, No Redness ENT: No Ear pain, No Ear discharge, No Nose pain, No Nose discharge, No Nose congestion, No Mouth pain, No Mouth swelling, No Throat pain, No Throat swelling, No Other Cardiovascular: No Chest Pain; Palpitations; No Orthopnea, No Paroxysmal Noc. Dyspnea, No Edema, No Lt Headedness, No Other Respiratory: No Cough, No Dry, No Shortness of breath, No SOB with excertion, No Wheezing, No Hemoptysis, No Pleuritic Pain, No Sputum, No Other Gastrointestinal: No Nausea, No Vomiting, No Abdominal Pain, No Diarrhea, No Constipation, No Melena, No Hematochezia, No Other Genitourinary: No Dysuria, No Frequency, No Incontinence, No Hematuria, No Retention, No Other Musculoskeletal: No other, No neck pain, No shoulder pain, No arm pain, No back pain, No hand pain, No leg pain, No foot pain Skin: No Rash, No Lesions, No Jaundice, No Bruising, No Other Objective Vitals Vital Signs Date Time Temp Pulse Resp B/P (MAP) Pulse Ox O2 Delivery O2 Flow Rate FiO2 03/07/25 15:00 161/74 03/07/25 13:00 98.5 67 18 99 98.5 03/07/25 07:47 Room Air* 0 21 Intake/Output Intake and Output 03/07/25 07:00 Intake Total 925 ml Balance 925 ml Intake Oral 925 ml # Voids 6 # Bowel Movements 1 Exam HEENT pupils are reactive Neck is supple CV is S1-S2 regular rate and rhythm Respiratory diminished breath sounds bases GI positive bowel sound 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4 mg Q5MINP PRN SL 03/06/25 02:30 Morphine Sulfate 2 mg Q30M PRN IV 03/06/25 02:30 Clonidine HCl 0.1 mg TID PO 03/06/25 14:00 03/07/25 15:00 0.1 MG Atorvastatin Calcium 10 mg HS PO 03/06/25 22:00 03/06/25 22:04 10 MG Apixaban 5 mg BID PO 03/06/25 10:00 03/07/25 09:06 5 MG Metoprolol Tartrate 25 mg BID PO 03/06/25 22:00 03/07/25 09:07 25 MG Laboratory Results Laboratory Tests 03/07/25 05:14 Chemistry Test 03/07/25 05:14 Albumin 4.0 g/dL (3.2-4.8) Calcium Level 9.4 mg/dL (8.7-10.4) Total Protein 6.6 g/dL (5.7-8.2) LFT Test 03/07/25 05:14 Alanine Aminotransferase (ALT) < 9 U/L (7-40) Alkaline Phosphatase 94 U/L (46-116) Aspartate Amino Transferase (AST) 22 U/L (13-40) Total Bilirubin 0.8 mg/dL (0.2-1.0) Urinalysis Test 03/05/25 22:42 Urine Color Light-yellow (Yellow) Urine Clarity Clear (Clear) Urine pH 5.0 (5.0-9.0) Urine Specific [place] 1.015 (1.001-1.035) Urine Protein Negative (Negative) Urine Ketones Negative (Negative) Urine Blood Trace /uL (Negative) H Urine Nitrite Negative (Negative) Urine Bilirubin Negative (Negative) Urine Urobilinogen Normal mg/dL (Negative) Urine Leukocyte Esterase Negative /uL (Negative) Urine RBC 1 /hpf (0 - 4) Urine Microscopic WBC 2 /HPF (0-5) Urine Squamous Epithelial Cells Few /hpf (<5) Urine Bacteria None seen /hpf (None Seen) Urine Hyaline Casts Few /lpf (0 - 2) Urine Granular Casts Few /lpf (0) Urine Mucus Few (None Seen) Urine Glucose Normal mg/dL (Normal) Microbiology Microbiology Date/Time Source Procedure Growth Status 03/06/25 06:30 Nose MRSA Screen - Final Complete Assessment/Plan Assessment/Plan 74-year-old female with a known history of AFib, history of SVT, congestive heart failure, coronary artery disease status post triple-vessel disease, mitral valve regurgitation status post mitral valve replacement, hypertension, previous history of CVA without any deficit presented to the hospital with a palpitation found to have 1. AFib with a RVR currently rate controlled currently off the amiodarone drip 2. Chronic congestive heart failure unspecified 3. Previous history of SVT 4. CAD status post CABG 5. Mitral valve regurgitation status post mitral valve replacement 6. History of CVA without any deficit 8. Hypertension , moderately controlled 9. Dyslipidemia -continue current meds, 2D echo cardiology consultation, discharge plan in next 24 hours. Plan discussed with: Patient Date of Service: Mar 07, 2025 Billing Provider: CHARIS ROLLINS MD Common Visit Codes: [id number] INP/OBS CARE(MOD) CHARIS ROLLINS MD Mar 07, 2025 17:12
[2025-03-08 01:00] VITALS: BP 134/72; PULSE 56; RESP 18; TEMP 97.8; O2SAT 100
[2025-03-08 05:00] VITALS: BP 123/69; PULSE 63; RESP 18; TEMP 97.6; O2SAT 97
[2025-03-08 08:00] VITALS: PULSE 65
[2025-03-08 09:00] VITALS: BP 141/58; PULSE 66; RESP 18; TEMP 97.8; O2SAT 97
[2025-03-08 13:00] VITALS: BP 138/69; PULSE 65; RESP 18; TEMP 98.1; O2SAT 97
--- NOTE | 2025-03-08 13:49 | DVHDS2 ---
Discharge Summary Date of Admission Mar 06, 2025 at 02:23 Date of Discharge: Mar 08, 2025 Labs/Diagnostic Data: Laboratory Results Test 03/07/25 05:14 03/06/25 04:02 03/05/25 22:42 03/05/25 22:25 White Blood Count 4.6 10^3/uL (4.4-10.8) Red Blood Count 4.49 10^6/uL (4.0-5.20) Hemoglobin 12.9 g/dL (12.2-16.2) Hematocrit 38.1 % (36.0-46.0) Mean Corpuscular Volume 85.0 fL (80.0-100.0) Mean Corpuscular Hemoglobin 28.7 pg (28.0-32.0) Mean Corpuscular Hemoglobin Concent 33.8 g/dL (32.0-36.0) Red Cell Distribution Width 17.8 % (11.8-14.3) Platelet Count 168 10^3/uL (140-450) Mean Platelet Volume 9.4 fL (6.9-10.8) Neutrophils (%) (Auto) 43.8 % (37.0-80.0) Lymphocytes (%) (Auto) 42.1 % (10.0-50.0) Monocytes (%) (Auto) 10.2 % (0.0-12.0) Eosinophils (%) (Auto) 3.4 % (0.0-7.0) Basophils (%) (Auto) 0.5 % (0.0-2.0) Neutrophils # (Auto) 2.0 10 ^3/uL (1.6-8.6) Lymphocytes # (Auto) 1.9 10 ^3/uL (0.4-5.4) Monocytes # (Auto) 0.5 10 ^3/uL (0-1.3) Eosinophils # (Auto) 0.2 10 ^3/uL (0-0.8) Basophils # (Auto) 0 10 ^3/uL (0-0.2) Nucleated Red Blood Cells 0.1 % Sodium Level 142 mmol/L (136-145) Potassium Level 3.6 mmol/L (3.5-5.1) Chloride Level 108 mmol/L (98-107) Carbon Dioxide Level 25 mmol/L (20-31) Anion Gap 9 (5-15) Blood Urea Nitrogen 24 mg/dL (9-23) Creatinine 1.08 mg/dL (0.550-1.02) Glomerular Filtration Rate Calc 54 mL/min (>90) BUN/Creatinine Ratio 22.2 (10.0-20.0) Serum Glucose 83 mg/dL (74-106) Calcium Level 9.4 mg/dL (8.7-10.4) Total Bilirubin 0.8 mg/dL (0.2-1.0) Aspartate Amino Transferase (AST) 22 U/L (13-40) Alanine Aminotransferase (ALT) < 9 U/L (7-40) Alkaline Phosphatase 94 U/L (46-116) Total Protein 6.6 g/dL (5.7-8.2) Albumin 4.0 g/dL (3.2-4.8) Magnesium Level 2.2 mg/dL (1.6-2.6) Thyroid Stimulating Hormone (TSH) 2.87 uIU/mL (0.55-4.78) Urine Color Light-yellow (Yellow) Urine Clarity Clear (Clear) Urine pH 5.0 (5.0-9.0) Urine Specific [place] 1.015 (1.001-1.035) Urine Protein Negative (Negative) Urine Ketones Negative (Negative) Urine Blood Trace /uL (Negative) Urine Nitrite Negative (Negative) Urine Bilirubin Negative (Negative) Urine Urobilinogen Normal mg/dL (Negative) Urine Leukocyte Esterase Negative /uL (Negative) Urine RBC 1 /hpf (0 - 4) Urine Microscopic WBC 2 /HPF (0-5) Urine Squamous Epithelial Cells Few /hpf (<5) Urine Bacteria None seen /hpf (None Seen) Urine Hyaline Casts Few /lpf (0 - 2) Urine Granular Casts Few /lpf (0) Urine Mucus Few (None Seen) Urine Glucose Normal mg/dL (Normal) Troponin I High Sensitivity 11 ng/L (</=34) Test 03/05/25 21:33 Prothrombin Time 12.3 sec (9.3-11.8) Prothrombin Time INR 1.18 (0.9-1.15) Activated Partial Thromboplast Time 30.2 SEC (24.5-34.5) B-Type Natriuretic Peptide 424.88 pg/mL (0-100) Other Laboratory Tests 03/07/25 05:14 Brief Hx & Hospital Course: 74-year-old female with a known history of AFib, history of SVT, congestive heart failure, coronary artery disease status post triple-vessel disease, mitral valve regurgitation status post mitral valve replacement, hypertension, previous history of CVA without any deficit presented to the hospital with a palpitation found to have AFib with a RVR started on amiodarone drip. Patient's amiodarone drip is off. Patient was resumed on beta eloy. Patient also has a clonidine p.r.n. for systolic blood pressure more than 160. Patient is currently stable to be discharged with a close follow up as an outpatient with the PCP as well as Cardiology. Condition at Discharge: Stable Final Diagnosis/Problems List 74-year-old female with a known history of AFib, history of SVT, congestive heart failure, coronary artery disease status post triple-vessel disease, mitral valve regurgitation status post mitral valve replacement, hypertension, previous history of CVA without any deficit presented to the hospital with a palpitation found to have 1. AFib with a RVR currently rate controlled currently off the amiodarone drip 2. Chronic congestive heart failure unspecified 3. Previous history of SVT 4. CAD status post CABG 5. Mitral valve regurgitation status post mitral valve replacement 6. History of CVA without any deficit 8. Hypertension , moderately controlled 9. Dyslipidemia Discharge Disposition: Home with Health Services SNF Discharge Will this Physician continue t: No Discharge Instruct/Medications Diet: Cardiac 2g Na,low cholest Activity: No Restrictions, As Tolerated Follow Up/Referral: Follow up with the PCP in 1-2 weeks Follow up with the Cardiology in 1-2 weeks. Scheduled Apixaban Base (Eliquis), 1 TAB PO BID, (Reported) Atorvastatin Calcium (Lipitor), 1 TAB PO DAILY, (Reported) Metoprolol Succinate (Metoprolol Succinate Er), 1 TAB PO DAILY Scheduled PRN Clonidine Hydrochloride (Clonidine Hcl), 0.1 MG PO TIDPRN PRN Discontinued Medications Apixaban Base (Eliquis), Unknown Dose PO BID, (Reported) Metoprolol Tartrate (Metoprolol Tartrate), 25 MG PO, (Reported) Discharge Statement: "Patient was advised to return to the ER or call 911 if any headaches, dizziness, shortness of breath, chest pain, abdominal pain, bleeding, fevers, or worsening of medical condition. Patient was counseled about treatment plan, medications, possible side effects, patientverbalized understanding. All questions were answered to the best of my ability. This discharge took greater then 30 minutes in planning, reviewing documentation, counseling the patient, and discussing with other team members." ASSESSMENT ASSESSMENT Assessment 74-year-old female with a known history of AFib, history of SVT, congestive heart failure, coronary artery disease status post triple-vessel disease, mitral valve regurgitation status post mitral valve replacement, hypertension, previous history of CVA without any deficit presented to the hospital with a palpitation found to have 1. AFib with a RVR currently rate controlled currently off the amiodarone drip 2. Chronic congestive heart failure unspecified 3. Previous history of SVT 4. CAD status post CABG 5. Mitral valve regurgitation status post mitral valve replacement 6. History of CVA without any deficit 8. Hypertension , moderately controlled 9. Dyslipidemia Date of Service: Mar 08, 2025 Billing Provider: CHARIS ROLLINS MD Common Visit Codes: 05964-XKN/OBS DISCH DAY >30min CHARIS ROLLINS MD Mar 08, 2025 13:49
[2025-03-08 15:01] VITALS: BP 138/69; PULSE 65; TEMP 36.7
[2025-03-08] MEDS ORDERED: CLON0.1T PO (15:31)
[2025-03-08] MEDS ORDERED: METO25TA93 PO (15:34)
[2025-03-09 10:16] LABS: Hepatitis B Surface Antigen Negative (Negative)
[2025-03-09 10:35] LABS: Hepatitis C Antibody Negative (Negative)
== END 2025-03-08 16:48 | disposition home or self-care (01) | DRG 309 ==
LOC: ER 20:40 → OVERFLOW 03-06 02:23 → TELE-WESTW 03-06 04:08
PROVIDERS: ADMIT Nurse Practitioner Family; ATTEND Nurse Practitioner Family
DX: I48.0 Paroxysmal atrial fibrillation (principal); I50.32 Chronic diastolic (congestive) heart failure; I48.92 Unspecified atrial flutter; I25.10 Atherosclerotic heart disease of native coronary artery without angina pectoris; I34.0 Nonrheumatic mitral (valve) insufficiency; I11.0 Hypertensive heart disease with heart failure; E78.5 Hyperlipidemia, unspecified; E66.9 Obesity, unspecified; Z95.1 Presence of aortocoronary bypass graft; Z86.73 Personal history of transient ischemic attack (TIA), and cerebral infarction without residual deficits; Z95.3 Presence of xenogenic heart valve; Z79.899 Other long term (current) drug therapy; Z68.28 Body mass index [BMI] 28.0-28.9, adult; Z79.01 Long term (current) use of anticoagulants
CPT/HCPCS: 36415; 71045; 80048; 80053; 81001; 83735; 83880; 84443; 84484; 85025; 85610; 85730; 86803; 87081; 87340; 93005; 93306; 96365; 99291; G0378

== ENCOUNTER 2025-03-28 11:38 | Inpatient (IN) | payer MEDICAID ==
[~2025-03-28] VITALS: Ht 160 cm; Wt 77.1 kg
[~2025-03-28 11:38] MED LIST changes: +APIX5TAB PO; +ATOR10TA PO; +METO25TA93 PO
--- NOTE | 2025-03-28 11:59 | ED.PDOC ---
HPI Comments HPI: 74y F who presents to the ED for chief complaint of palpitations - pt states she woke up this AM with heart beating fast and states she checked her blood pressure and states she preceded to take metoprolol and potassium - pt continued to feel her heart racing and came to the ED for evaluation - pt in the ED, has noted heart rate of 125 with otherwise stable vitals in the ED - pt otherwise denies chest pain or associated symptoms - pt had ECHO done on 03/06/[address] Montiel with the following results; - Conclusion lvef 50% postop septum left atrium enlarged s/p bioprosthetic MV replacement, mean gradient of 2, no sig MR SIGNED BY: STEPHON FRAUSTO MD SIGNED DATE/TIME: 03/06/25 1153 - Pt was admitted to and discharged on 03/08/25 with following discharge summary: 74-year-old female with a known history of AFib, history of SVT, congestive heart failure, coronary artery disease status post triple-vessel disease, mitral valve regurgitation status post mitral valve replacement, hypertension, previous history of CVA without any deficit presented to the hospital with a palpitation found to have AFib with a RVR started on amiodarone drip. Patient's amiodarone drip is off. Patient was resumed on beta eloy. Patient also has a clonidine p.r.n. for systolic blood pressure more than 160. Patient is currently stable to be discharged with a close follow up as an outpatient with the PCP as well as Cardiology. Past Medical history: 1. AFib with a RVR currently rate controlled currently off the amiodarone drip 2. Chronic congestive heart failure unspecified 3. Previous history of SVT 4. CAD status post CABG 5. Mitral valve regurgitation status post mitral valve replacement 6. History of CVA without any deficit 8. Hypertension , moderately controlled 9. Dyslipidemia Past Surgical history: CABG Medications: potassium, metoprolol, amlodipine, Ativan, Effexor, clonidine, Lasix, atorvastatin Social History: Denies smoking, ETOH, and drug use. Allergies: NKA HPI: Poor Historian. Molly: PALPITATIONS, TACHYCARDIA 120, TOOK HER METOPROLOL THIS MORNING. REVIEW OF SYSTEMS: CONSTITUTIONAL: Denies acute: fever, diaphoresis, chills, generalized weakness. HEAD: Denies acute: headache, photophobia Eyes: Denies acute: Double vision, vision loss, eye pain, eye discharge. EARS: Denies acute: tinnitus, hearing loss, ear discharge, ear pain, THROAT: Denies acute: sore throat, swelling, difficulty swallowing , pain with swallowing, change in voice. NECK: Denies acute: neck pain, neck swelling, stiff neck. HEART: Denies acute : chest pain, LUNGS: Denies acute: SOB, wheezing, cough, hemoptysis ABDOMEN: Denies acute: abdominal pain, Nausea, Vomiting, diarrhea, melena , hematemesis, hematochezia SKIN: Denies acute: rash, redness, lesions, itchiness. EXTREMITIES: Denies acute: calf pain, numbness, tingling, weakness, denies pain in extremity. Denies acute: Low back pain. Neuro: Denies acute: focal neurological deficit, motor or sensory focal neurological deficit, tremors, seizure like activity, confusion, dizziness, change in mental status, loss of bowel or bladder function, cauda equina like symptoms. : Denies acute: dysuria, hematuria, flank pain, increase in urinary frequency. PSYCH: Denies acute: hallucination, suicidal ideation, homicidal ideation. FEMALE: Denies acute: abnormal vaginal bleeding, foul odor, unusual discharge. PHYSICAL EXAM: General: ---mild-----acute distress, awake and alert. Head: normocephalic, atraumatic. Neck: supple, trachea is midline, no swelling. Throat: Normal phonation. Eyes:, no erythema, no purulent discharge, no proptosis, no icterus. Heart: regular, tachycardia, no significant murmur appreciated. Lungs: no apparent respiratory distress, Able to speak in full sentences. No wheezing, no rhonchi, no crackles. No stridors Clear to auscultation bilaterally. Abdomen: non tender to palpation, non distended, soft, no guarding, no rebound, + bowel sounds. Neuro: Awake, Alert, oriented to name, self, situation, follows commands GCS=15. Speech is normal. Skin: no petechia, no purpura, no cyanosis, non-pale, not jaundice. Lower extremities: --no - Pitting edema no deformity, no focal swelling, no calf TTP. Makes eye contact. moves all four extremities. Face: no apparent facial droop. Ambulating in the ED independently. ED COURSE: DISCLAIMER: This medical document was created using an electronic medical record system with voice recognition software and computerized dictation system. Although this document has been carefully reviewed, there might still be some phonetic and typographical errors. Occasional wrong-word or "sound-alike" substitutions may have occurred due to the inherent limitations of voice recognition software. These areas are purely typographical due to imperfections of the software programs and do not reflect any compromise in the patient's medical care. Please read the chart carefully and recognize, using context, where these substitutions have occurred. Chief Complaint: Palpitations Time Seen by MD: 11:40 Primary Care Provider: UNKNOWN Reviewed Notes: Allergies Allergies: Coded Allergies: NO KNOWN ALLERGIES (Unverified , 12/20/24) Home Meds Active Scripts Metoprolol Succinate (Metoprolol Succinate Er) 25 Mg Tab, 1 TAB PO DAILY, #60 TAB 5 Refills Prov:CHARIS ROLLINS MD 03/08/25 Clonidine Hydrochloride (Clonidine Hcl) 0.1 Mg Tab, 0.1 MG PO TIDPRN PRN for 90 Days, #270 TAB 3 Refills If systolic blood pressures more than 160 Prov:CHARIS ROLLINS MD 03/08/25 Reported Medications Apixaban Base (ELIQUIS) 5 Mg Tab, 1 TAB PO BID 03/06/25 Atorvastatin Calcium (Lipitor) 10 Mg Tab, 1 TAB PO DAILY, #90 TAB 1 Refill 03/06/25 Information Source: Patient Mode of Arrival: Ambulatory Past Medical History PAST MEDICAL HISTORY: AFIB, CAD, CHF, High Lipids, HTN Surgical History: CABG CONSERVATION OFFICER History: Denies all CONSERVATION OFFICER Hx Family History Family History: Reviewed,noncontributory to illness Social History Smoker: Non-Smoker Alcohol: Denies ETOH Use Drugs: Denies Drug Use Lives In: Home EKG EKG : Pulse Rate (adult): 123 [place]etto: Normal Cardiac Rhythm: ST Block: None Hypertrophy: None ST: Normal Was a procedure done? Was a procedure done?: No CP Differential Dx Differential Diagnosis: A-fib, A-Flutter, Anxiety / Panic Attack, Atrial Dysrhythmia, Digoxin Toxicity, Electrolyte Disorder, Heart Failure, Hyper thyroidism, Hyperventilation, Hypoxia, MAT, OK, PAC's, Pacemaker Malfunction, PSVT, Pulmonary Embolus, PVC's, Renal Failure, Sinus Tachycardia, Torsades De Pointes, Ventricular Dysrhythmia, V-Fib, V-Tach, WPW X-Ray, Labs, Meds, VS Vital Signs Date Time Temp Pulse Resp B/P (MAP) Pulse Ox O2 Delivery O2 Flow Rate FiO2 03/28/25 15:08 98.9 122 19 97/44 (61) 96 98.9 03/28/25 15:07 64 22 97/51 (66) 95 03/28/25 15:04 124 97/51 03/28/25 14:33 64 114/69 03/28/25 14:21 124 21 114/69 (84) 95 03/28/25 14:21 124 114/69 03/28/25 13:39 123 03/28/25 13:29 126 121/68 03/28/25 13:28 126 03/28/25 13:26 126 22 97 Room Air 03/28/25 13:26 98.7 126 22 121/68 (85) 97 98.7 03/28/25 12:52 123 03/28/25 11:45 98.1 125 16 136/89 (105) 96 98.1 03/28/25 11:43 125 Lab Test 03/28/25 14:55 03/28/25 13:11 03/28/25 12:00 Range/Units Troponin I High Sensitivity 10 7 9 </=34 ng/L White Blood Count 6.3 4.4-10.8 10^3/uL Red Blood Count 4.95 4.0-5.20 10^6/uL Hemoglobin 14.1 12.2-16.2 g/dL Hematocrit 42.6 36.0-46.0 % Mean Corpuscular Volume 86.0 80.0-100.0 fL Mean Corpuscular Hemoglobin 28.4 28.0-32.0 pg Mean Corpuscular Hemoglobin Concent 33.1 32.0-36.0 g/dL Red Cell Distribution Width 18.0 H 11.8-14.3 % Platelet Count 224 140-450 10^3/uL Mean Platelet Volume 8.8 6.9-10.8 fL Neutrophils (%) (Auto) 52.0 37.0-80.0 % Lymphocytes (%) (Auto) 35.8 10.0-50.0 % Monocytes (%) (Auto) 9.3 0.0-12.0 % Eosinophils (%) (Auto) 2.2 0.0-7.0 % Basophils (%) (Auto) 0.7 0.0-2.0 % Neutrophils # (Auto) 3.3 1.6-8.6 10 ^3/uL Lymphocytes # (Auto) 2.3 0.4-5.4 10 ^3/uL Monocytes # (Auto) 0.6 0-1.3 10 ^3/uL Eosinophils # (Auto) 0.1 0-0.8 10 ^3/uL Basophils # (Auto) 0 0-0.2 10 ^3/uL Nucleated Red Blood Cells 0.1 % Sodium Level 143 136-145 mmol/L Potassium Level 4.6 3.5-5.1 mmol/L Chloride Level 106 98-107 mmol/L Carbon Dioxide Level 28 20-31 mmol/L Anion Gap 9 5-15 Blood Urea Nitrogen 15 9-23 mg/dL Creatinine 1.03 H 0.550-1.02 mg/dL Glomerular Filtration Rate Calc 57 >90 mL/min BUN/Creatinine Ratio 14.6 10.0-20.0 Serum Glucose 97 74-106 mg/dL Calcium Level 10.1 8.7-10.4 mg/dL Phosphorus Level 4.4 2.4-5.1 mg/dL Magnesium Level 2.3 1.6-2.6 mg/dL Total Bilirubin 0.4 0.2-1.0 mg/dL Aspartate Amino Transferase (AST) 22 13-40 U/L Alanine Aminotransferase (ALT) 12 7-40 U/L Alkaline Phosphatase 130 H 46-116 U/L B-Type Natriuretic Peptide 152.10 0-100 pg/mL Total Protein 7.8 5.7-8.2 g/dL Albumin 4.8 3.2-4.8 g/dL Current Medications Medications (Trade) Dose Ordered Sig/Tal Route Start Time Stop Time Status Last Admin Metoprolol Tartrate (Lopressor) 5 mg ONCE ONCE IV 03/28/25 12:00 03/28/25 12:01 DC 03/28/25 13:29 Metoprolol Tartrate (Lopressor) 5 mg ONCE ONCE IV 03/28/25 14:15 03/28/25 14:16 DC 03/28/25 14:21 [place] [id number] Ph: [phone] DIAGNOSTIC IMAGING Diagnostic Imaging Report : [id number] Signed PATIENT: VINAY FLYNNACCT: [id number] UNIT: [id number] : 1950 LOC: ER ROOM / BED: / AGE / SEX: 74 / F ADM STATUS: REG ER SERVICE 1157 ORDERING PHYSICIAN: TRAVON BRAND DO PROCEDURE(s): CXRP - CHEST PORTABLE REASON: palpitations, tachy ORDER NUMBER(s): [id number], ACCESSION NUMBER(s): [id number] CHEST RADIOGRAPH Indication: palpitations, tachy Technique: Single frontal view of the chest was obtained COMPARISON: XY CHEST PORTABLE on DOS: 03/05/25, XY CHEST XRAY 1 VIEW on DOS: 02/11/25 FINDINGS: Lines and Tubes: Median sternotomy Lungs: Clear Pleura: No effusion. No pneumothorax. Cardiomediastinal contours: Unremarkable Bones: Unremarkable IMPRESSION: No acute disease. ATED BY: DINH JANG MD DICTATED DATE/TIME: 03/28/251227 SIGNED BY: DINH JANG MD SIGNED DATE/TIME: 03/28/251227 CC: Time of 1ST Reevaluation: 00:00 Reevaluation 1ST: Unchanged Patient Education/Counseling: Diagnosis, Treatment Family Education/Counseling: No Family Present Comments MDM: patient presented with the above HPI.---palpitations last sinus tachycardia---workup was initiated. patient was found with the above mentioned diagnosis. the following medications were ordered: please refer to order lists of meds and tests obtained by myself Dr. Brand. Patient ED course and VS have been stabilized. Patient has been reassessed in the ED and remained in a stable condition. Pertinent incidental findings were discussed with the patient and/or family. Patient/family voices understanding and is agreeable with plan. Patient has been observed in the ED adequate length of time to insure improvement/stability. Escalation of care considered: Consideration of escalation to observation or admission Patient has history of atrial fibrillation and takes metoprolol at home. She was given Lopressor 5 mg two different boluses and continued to be fluctuating between sinus tachycardia/atrial fibrillation with RVR. Patient was ADMITTED to the medicine team for further evaluation and treatment of their presentation. Medicine team started amiodarone drip and All the reports of any imaging studies that were ordered by myself were reviewed by myself. SEPSIS Sepsis Screen Physician Orders Electrocardigram (03/28/25 11:44) Electrocardigram (03/28/25 12:44) Electrocardigram (03/28/25 14:44) Supervisor Quilting (03/28/25 ) Urinalysis (03/28/25 11:57) Chest Portable (03/28/25 11:57) Saline Lock (03/28/25 13:07) Vital Signs Date Time Temp Pulse Resp B/P (MAP) Pulse Ox O2 Delivery O2 Flow Rate FiO2 03/28/25 15:08 98.9 122 19 97/44 (61) 96 98.9 03/28/25 15:07 64 22 97/51 (66) 95 03/28/25 15:04 124 97/51 03/28/25 14:33 64 114/69 03/28/25 14:21 124 21 114/69 (84) 95 03/28/25 14:21 124 114/69 03/28/25 13:39 123 03/28/25 13:29 126 121/68 03/28/25 13:28 126 03/28/25 13:26 126 22 97 Room Air 03/28/25 13:26 98.7 126 22 121/68 (85) 97 98.7 03/28/25 12:52 123 03/28/25 11:45 98.1 125 16 136/89 (105) 96 98.1 03/28/25 11:43 125 Laboratory Tests Test 03/28/25 12:00 White Blood Count 6.3 10^3/uL (4.4-10.8) Medications Medications Dose Ordered Sig/Tal Route Start Time Stop Time Status Last Admin Dose Admin Metoprolol Tartrate 5 mg ONCE ONCE IV 03/28/25 12:00 03/28/25 12:01 DC 03/28/25 13:29 Metoprolol Tartrate 5 mg ONCE ONCE IV 03/28/25 14:15 03/28/25 14:16 DC 03/28/25 14:21 Departure 1 Departure Time of Disposition: 12:40 Impression: Primary Impression: Sinus tachycardia Additional Impression: Atrial fibrillation with RVR Disposition: ADMITTED INPATIENT Admit to: Tele Condition: Guarded Discharged With: Self Critical Care Note Critical Care Time?: Yes (45 min-critical care time only) Heart Score Heart Score: Heart Score Response (Comments) Value History Slightly Suspicious 0 EKG Repolarization Disturb 1 Age >65 2 Risk Factors >3 or Hx ASHD 2 Troponin Normal limit 0 Total 5 I personally scribed for TRAVON BRAND DO ([email or web address]) on 03/28/25 at 11:59. Electronically submitted by Janis Gillis ([facility] [employer] [facility] [employer] [employer] I personally scribed for TRAVON BRAND DO ([email or web address]) on 03/28/25 at 12:37. Electronically submitted by Janis Gillis ([facility] I personally scribed for TRAVON BRAND DO ([email or web address]) on 03/28/25 at 12:52. Electronically submitted by Janis Gillis ([employer]). I personally scribed for TRAVON BRAND DO ([email or web address]) on 03/28/25 at 15:16. Electronically submitted by Janis Gillis ([facility]). I personally scribed for TRAVON BRAND DO ([email or web address]) on 03/28/25 at 17:30. Electronically submitted by Janis Gillis ([facility] TRAVON BRAND DO Mar 28, 2025 11:59
[2025-03-28 12:25] LABS: Hematocrit 42.6 % (36.0-46.0); Hemoglobin 14.1 g/dL (12.2-16.2); Mean Corpuscular Hemoglobin 28.4 pg (28.0-32.0); Mean Corpuscular Volume 86.0 fL (80.0-100.0); Nucleated Red Blood Cells % 0.1 %
--- NOTE | 2025-03-28 12:30 | DVH ---
CHEST RADIOGRAPH Indication: palpitations, tachy Technique: Single frontal view of the chest was obtained COMPARISON: XY CHEST PORTABLE on DOS: 03/05/25, XY CHEST XRAY 1 VIEW on DOS: 02/11/25 FINDINGS: Lines and Tubes: Median sternotomy Lungs: Clear Pleura: No effusion. No pneumothorax. Cardiomediastinal contours: Unremarkable Bones: Unremarkable IMPRESSION: No acute disease.
[2025-03-28 12:36] LABS: Alanine Aminotransferase 12 U/L (7-40); Albumin 4.8 g/dL (3.2-4.8); Anion Gap 9 (5-15); BUN/Creatinine Ratio 14.6 (10.0-20.0); Bilirubin, Total 0.4 mg/dL (0.2-1.0); Blood Urea Nitrogen 15 mg/dL (9-23); Calcium 10.1 mg/dL (8.7-10.4); Carbon Dioxide 28 mmol/L (20-31); Chloride 106 mmol/L (98-107); Glucose 97 mg/dL (74-106); Magnesium 2.3 mg/dL (1.6-2.6); Potassium 4.6 mmol/L (3.5-5.1); Sodium 143 mmol/L (136-145); Total Protein 7.8 g/dL (5.7-8.2)
[2025-03-28 12:38] LABS: Alkaline Phosphatase 130 U/L (46-116)
[2025-03-28] MEDS: METOPROLOL TARTRATE 1MG/1ML-5ML VIAL IV ONE ×2 (13:29→14:21)
[2025-03-28] MEDS ORDERED: DOCUSATE SOD 100 MG CAP PO PRN (15:15)
[2025-03-28] MEDS ORDERED: NITROGLYCERIN 0.4 MG SL TAB SL PRN (15:15)
[2025-03-28] MEDS ORDERED: ONDANSETRON HCL 4 MG/2 ML VIAL IV PRN (15:15)
[2025-03-28] MEDS ORDERED: MORPHINE SULFATE INJ 2 MG/ml SYRG IV PRN (15:15)
--- NOTE | 2025-03-28 15:19 | DVHHP2 ---
History of Present Illness Reason for Visit: palpiataions History of Present Illness 72-year-old female with extensive cardiac history including paroxysmal supraventricular tachycardia (PSVT), congestive heart failure (CHF), coronary artery disease (CAD) status post triple bypass, mitral valve replacement, mitral regurgitation, hypertension, and prior CVA with residual deficits, presents with palpitations upon waking this morning. She took her home dose of metoprolol, but continued to experience palpitations. She noted a heart rate of 124 bpm. She denies chest pain, dizziness, or weakness. On ED evaluation, she was found to be in atrial fibrillation with RVR. Labs showed CBC unremarkable, creatinine within normal limits, CMP unremarkable, BNP mildly elevated at 152.10. Chest X-ray was unremarkable. An echocardiogram from March 06, 2025 showed EF 45%. Notably, she was admitted on March 08, 2025 for similar symptoms (afib with RVR) and discharged on metoprolol and Eliquis. On todays exam, patient remains in atrial fibrillation with RVR despite home metoprolol. She was started on diltiazem in the ED and will be admitted for further rate control and cardiology evaluation. Past Medical History See HPI above Past Surgical History See HPI above Family History Reviewed, non-contributory to the management of this case. Past Social History The patient lives at home, denies smoking, alcohol or illicit drugs abuse. Review of Systems Constitutional: No: Fever, Chills, Sweats, Weakness, Malaise, Other Eyes: No: Pain, Vision change, Conjunctivae inflammation, Eyelid inflammation, Other, Redness ENT: No: Ear pain, Ear discharge, Nose pain, Nose discharge, Nose congestion, Mouth pain, Mouth swelling, Throat pain, Throat swelling, Other Respiratory: No: Cough, Dry, Shortness of breath, SOB with excertion, Wheezing, Hemoptysis, Pleuritic Pain, Sputum, Wheezing, Other Cardiovascular: Palpitations; No: Chest Pain, Orthopnea, Paroxysmal Noc. Dyspnea, Edema, Lt Headedness, Other Gastrointestinal: No: Nausea, Vomiting, Abdominal Pain, Diarrhea, Constipation, Melena, Hematochezia, Other Genitourinary: No Dysuria, No Frequency, No Incontinence, No Hematuria, No Retention, No Other Musculoskeletal: No: other, neck pain, shoulder pain, arm pain, back pain, hand pain, leg pain, foot pain Skin: No: Rash, Lesions, Jaundice, Bruising, Other Neurological: No: Weakness, Numbness, Incoordination, Change in speech, Confusion, Seizures, Other Allergies: Coded Allergies: NO KNOWN ALLERGIES (Unverified , 12/20/24) Exam Vital Signs Vital Signs Date Time Temp Pulse Resp B/P (MAP) Pulse Ox O2 Delivery O2 Flow Rate FiO2 03/28/25 15:16 126 19 99/54 (69) 95 03/28/25 15:08 98.9 98.9 03/28/25 13:26 Room Air General Appearance: Alert, Oriented X3, Cooperative, No acute distress HEENT: Atraumatic, PERRLA, EOMI, Mucous membr. moist/pink Respiratory: Clear to auscultation, Normal air movement Cardiovascular: Normal S1, Normal S2, No murmurs, Other (Irregular irregular) Abdominal: Normal bowel sounds, Soft, No tenderness, No hepatospenomegaly, No masses Extremities: No clubbing, No cyanosis, No edema, Normal pulses, No tenderness/swelling Skin: No rashes, No breakdown, No significant lesion Neuro: Normal speech, Strength at 5/5 X4 ext, Normal tone, Sensation intact, Cranial nerves 3-12 NL, Reflexes 2+ Psych/Mental Status: Mental status NL, Mood NL Labs/Xrays Chest x-ray unremarkable I reviewed labs, imaging CT scan abdomen pelvis, EKG and all diagnostic studies on this patient from ED records and the medical chart Labs Test 03/28/25 14:55 03/28/25 12:00 Range/Units White Blood Count 6.3 4.4-10.8 10^3/uL Red Blood Count 4.95 4.0-5.20 10^6/uL Hemoglobin 14.1 12.2-16.2 g/dL Hematocrit 42.6 36.0-46.0 % Mean Corpuscular Volume 86.0 80.0-100.0 fL Mean Corpuscular Hemoglobin 28.4 28.0-32.0 pg Mean Corpuscular Hemoglobin Concent 33.1 32.0-36.0 g/dL Red Cell Distribution Width 18.0 H 11.8-14.3 % Platelet Count 224 140-450 10^3/uL Mean Platelet Volume 8.8 6.9-10.8 fL Neutrophils (%) (Auto) 52.0 37.0-80.0 % Lymphocytes (%) (Auto) 35.8 10.0-50.0 % Monocytes (%) (Auto) 9.3 0.0-12.0 % Eosinophils (%) (Auto) 2.2 0.0-7.0 % Basophils (%) (Auto) 0.7 0.0-2.0 % Neutrophils # (Auto) 3.3 1.6-8.6 10 ^3/uL Lymphocytes # (Auto) 2.3 0.4-5.4 10 ^3/uL Monocytes # (Auto) 0.6 0-1.3 10 ^3/uL Eosinophils # (Auto) 0.1 0-0.8 10 ^3/uL Basophils # (Auto) 0 0-0.2 10 ^3/uL Nucleated Red Blood Cells 0.1 % Sodium Level 143 136-145 mmol/L Potassium Level 4.6 3.5-5.1 mmol/L Chloride Level 106 98-107 mmol/L Carbon Dioxide Level 28 20-31 mmol/L Anion Gap 9 5-15 Blood Urea Nitrogen 15 9-23 mg/dL Creatinine 1.03 H 0.550-1.02 mg/dL Glomerular Filtration Rate Calc 57 >90 mL/min BUN/Creatinine Ratio 14.6 10.0-20.0 Serum Glucose 97 74-106 mg/dL Calcium Level 10.1 8.7-10.4 mg/dL Magnesium Level 2.3 1.6-2.6 mg/dL Total Bilirubin 0.4 0.2-1.0 mg/dL Aspartate Amino Transferase (AST) 22 13-40 U/L Alanine Aminotransferase (ALT) 12 7-40 U/L Alkaline Phosphatase 130 H 46-116 U/L B-Type Natriuretic Peptide 152.10 0-100 pg/mL Total Protein 7.8 5.7-8.2 g/dL Albumin 4.8 3.2-4.8 g/dL SEPSIS Sepsis Screen Date sepsis recognized/suspect: Mar 28, 2025 Time Sepsis recognized/suspect: 1141 Recent Procedure: No On Antibiotic Therapy: No Respiratory Rate >20: No Heart Rate >90: Yes Temp<36 C (96.8 F) or >38.3 C: No SBP <90 or MAP <65 mmHG: No New Acute Mental Status Change: No Is the patient on CPAP, BIPAP,: No Physician Orders Troponin-I Hs (03/28/25 14:44) Electrocardigram (03/28/25 11:44) Electrocardigram (03/28/25 12:44) Electrocardigram (03/28/25 14:44) Strategic Procurement Manager (03/28/25 ) Urinalysis (03/28/25 11:57) Chest Portable (03/28/25 11:57) Saline Lock (03/28/25 13:07) Diltiazem 125mg/125ml Bag Kit (Cardizem) (03/28/25 15:15) Admit (03/28/25 15:14) Allergies (03/28/25 15:14) Code Status (03/28/25 15:14) Ondansetron Hcl (Zofran) (03/28/25 15:15) Docusate Sodium Capsule (Colace Capsule) (03/28/25 15:15) Complete Blood Count (03/29/25 04:00) Comprehensive Metabolic Panel (03/29/25 04:00) Cardiac Diet-2gna,Lofat,Lochol (03/28/25 Dinner) Condition: Stable (03/28/25 15:14) Maintain Bed Rest (03/28/25 15:14) Morphine Sulfate Injection (03/28/25 15:15) Sequential Compression Device (03/28/25 ) Nitroglycerin Sublingual (Ntrostat Subli (03/28/25 15:15) Stat Ekg For Chest Pain (03/28/25 15:14) Notify Md Of Changes From Base (03/28/25 15:14) Bulk Tank Car Unloader For 24 Hours (03/28/25 15:14) Emergency Dysrhythmia Protocol (03/28/25 15:14) Rhythm Strips Once Every Shift (03/28/25 15:14) Oxygen By Nasal Cannula (03/28/25 15:14) Magnesium (03/28/25 15:14) Phosphorus (03/28/25 15:14) Apixaban (Eliquis) (03/28/25 22:00) (Nf) Atorvastatin Calcium (Lipitor) (03/29/25 10:00) Amiodarone 150 Mg Bolus (03/28/25 15:15) Amiodarone Drip 1 Mg/Min X 6hr (03/28/25 15:30) Amiodarone Drip 0.5 Mg/Min (03/28/25 21:30) * Cardiology Consult (03/28/25 15:14) Vital Signs Date Time Temp Pulse Resp B/P (MAP) Pulse Ox O2 Delivery O2 Flow Rate FiO2 03/28/25 15:16 126 19 99/54 (69) 95 03/28/25 15:08 98.9 122 19 97/44 (61) 96 98.9 03/28/25 15:07 64 22 97/51 (66) 95 03/28/25 15:04 124 97/51 03/28/25 14:33 64 114/69 03/28/25 14:21 124 21 114/69 (84) 95 03/28/25 14:21 124 114/69 03/28/25 13:39 123 03/28/25 13:29 126 121/68 03/28/25 13:26 126 22 97 Room Air 03/28/25 13:26 98.7 126 22 121/68 (85) 97 98.7 03/28/25 12:52 123 03/28/25 11:45 98.1 125 16 136/89 (105) 96 98.1 03/28/25 11:43 125 Laboratory Tests Test 03/28/25 12:00 White Blood Count 6.3 10^3/uL (4.4-10.8) Medications Medications Dose Ordered Sig/Tal Route Start Time Stop Time Status Last Admin Dose Admin Metoprolol Tartrate 5 mg ONCE ONCE IV 03/28/25 12:00 03/28/25 12:01 DC 03/28/25 13:29 5 MG Metoprolol Tartrate 5 mg ONCE ONCE IV 03/28/25 14:15 03/28/25 14:16 DC 03/28/25 14:21 5 MG Assessment/Plan Assessment/Plan 74 yr old female Atrial fibrillation with RVR in setting of structural heart disease requiring rate control and further cardiac evaluation. ASSESSMENT & PLAN Atrial Fibrillation with RVR Continue IV ami and drip Cardiology consult for management Consider beta-eloy if stable or rhythm control strategy if rate control fails cont Eliquis Congestive Heart Failure, EF 45% no exacerbation Monitor for volume status, daily weights Continue home meds if hemodynamically stable BNP stable History of CVA with Residual Deficits Continue stroke prophylaxis with anticoagulation Neuro checks per protocol CHRONIC PROBLEM LIST: Paroxysmal Supraventricular Tachycardia Congestive Heart Failure (EF 45%) Coronary Artery Disease Mitral Valve Replacement Hypertension History of CVA with Residual Deficits Continue stroke prophylaxis with anticoagulation hx cabg afib hld FEN / PPx Fluids: Maintain IV access, Electrolytes: Daily BMP, magnesium, phosphate Nutrition: Regular cardiac diet DVT Prophylaxis: SCDs while on Eliquis GI Prophylaxis: PPI Disposition Admit to telemetry for atrial fibrillation with RVR. Continue rate control, mon itor for decompensation, and coordinate with cardiology for ongoing ma Plan discussed with: Patient My Orders Orders - NYASIA CORNEJO DNP Procedure Category Date Status Time Admit ADMIT 03/28/25 Transmitted 15:14 Allergies [facility] 03/28/25 In Process 15:14 Code Status CODE 03/28/25 Transmitted 15:14 Ondansetron Hcl [facility] 03/28/25 Transmitted (Zofran) 15:15 Docusate Sodium PHA 03/28/25 Transmitted Capsule (Colace 15:15 Complete Blood Count LAB 03/29/25 Verified 04:00 Comprehensive LAB 03/29/25 Verified Metabolic Panel 04:00 Cardiac DIET 03/28/25 Transmitted Diet-2gna,Lofat,Lochol Dinner Condition: Stable [facility] 03/28/25 In Process 15:14 Maintain Bed Rest [facility] 03/28/25 In Process 15:14 Morphine Sulfate [facility] 03/28/25 Transmitted Injection 15:15 Sequential [facility] 03/28/25 In Process Compression Device Nitroglycerin [facility] 03/28/25 Transmitted Sublingual (Ntrostat 15:15 Stat Ekg For Chest [facility] 03/28/25 In Process Pain 15:14 Notify Md Of Changes [facility] 03/28/25 In Process From Base 15:14 Bulk Tank Car Unloader For [facility] 03/28/25 In Process 24 Hours 15:14 Emergency Dysrhythmia [facility] 03/28/25 In Process Protocol 15:14 Rhythm Strips Once [facility] 03/28/25 In Process Every Shift 15:14 Oxygen By Nasal RT 03/28/25 Transmitted Cannula 15:14 Magnesium LAB 03/28/25 Transmitted 15:14 Phosphorus LAB 03/28/25 Transmitted 15:14 Apixaban (Eliquis) PHA 03/28/25 Transmitted 22:00 (Nf) Atorvastatin PHA 03/29/25 Transmitted Calcium (Lipitor) 10:00 Amiodarone 150 Mg PHA 03/28/25 Transmitted Bolus 15:15 Amiodarone Drip 1 PHA 03/28/25 Transmitted Mg/Min X 6hr 15:30 Amiodarone Drip 0.5 PHA 03/28/25 Transmitted Mg/Min 21:30 * Cardiology Consult CONS 03/28/25 Transmitted 15:14 Date of Service: Mar 28, 2025 Billing Provider: NYASIA CORNEJO DNP Common Visit Codes: [id number] INP/OBS CARE (HIGH), [id number] CARE 30-74 MIN NYASIA CORNEJO DNP Mar 28, 2025 15:19
[2025-03-28] MEDS: AMIODARONE BOLUS KIT 100 ML IV ONE (15:46)
[2025-03-28] MEDS: AMIODARONE 360mg/200mL PREMIX 200 ML IV ONE (15:58)
[2025-03-28 16:45] VITALS: PULSE 112; RESP 20; O2SAT 96
--- NOTE | 2025-03-28 18:47 | ECG ---
[facility] Test Date: 2025-03-28 Test Time: 13:39:02 Pat Name: VINAY FLYNN Department: ED Room: 0276T Gender: F Recruiter Manager: vcik : [id number] Requested By: TRAVON BRAND Order Number: [id number] Reading MD: Mohsen Aparicio Measurements Intervals [place] Rate: 123 P: 0 IA: 0 QRS: 99 QRSD: 92 T: 61 QT: 398 QTc: 570 Interpretive Statements Junctional tachycardia Right axis deviation Minimal ST elevation, inferior leads Prolonged QT interval Electronically Signed On 04-01-2025 17:47:17 PDT by Mohsen Aparicio Please click the below link to view image of tracing.
[2025-03-28] MEDS: AMIODARONE 360mg/200mL PREMIX 200 ML IV SCH (21:27)
[2025-03-28] MEDS: APIXABAN 5 MG TAB PO SCH (22:11)
[2025-03-28] MEDS: ATORVASTATIN 20 MG TAB PO SCH (22:11)
[2025-03-28 23:42] LABS: Urine Protein, UAD Negative (Negative)
[2025-03-29] VITALS (13 sets, daily range): BP systolic 114–136; BP diastolic 44–80; PULSE 62–71; RESP 14–23; TEMP 97.8–98.6; O2SAT 94–99
[2025-03-29 04:41] LABS: Hematocrit 38.8 % (36.0-46.0); Hemoglobin 13.1 g/dL (12.2-16.2); Mean Corpuscular Hemoglobin 29.3 pg (28.0-32.0); Mean Corpuscular Volume 86.5 fL (80.0-100.0); Nucleated Red Blood Cells % 0.1 %
[2025-03-29 05:01] LABS: Alanine Aminotransferase 13 U/L (7-40); Albumin 3.9 g/dL (3.2-4.8); Alkaline Phosphatase 100 U/L (46-116); Anion Gap 9 (5-15); BUN/Creatinine Ratio 23.5 (10.0-20.0); Calcium 8.8 mg/dL (8.7-10.4); Carbon Dioxide 27 mmol/L (20-31); Glucose 92 mg/dL (74-106); Potassium 4.1 mmol/L (3.5-5.1); Sodium 144 mmol/L (136-145); Total Protein 6.5 g/dL (5.7-8.2)
[2025-03-29 05:02] LABS: Bilirubin, Total 0.4 mg/dL (0.2-1.0)
[2025-03-29 05:03] LABS: Blood Urea Nitrogen 24 mg/dL (9-23); Chloride 108 mmol/L (98-107)
--- NOTE | 2025-03-29 10:49 | DVHPN2 ---
Subjective Feels better today. No chest pain. She has history of AFib. She takes Eliquis at home. She ran out four days ago. Reviewed: Care Plan, H&P, Labs, Medications, Previous Orders, Radiology Changes from previous H/P or p: No Changes Objective Vitals Vital Signs Date Time Temp Pulse Resp B/P (MAP) Pulse Ox O2 Delivery O2 Flow Rate FiO2 03/29/25 08:00 62 03/29/25 07:01 25 118/59 (78) 98 03/28/25 16:45 Room Air* 0 21 03/28/25 15:08 98.9 98.9 Intake/Output Intake and Output 03/29/25 07:00 Intake Total 399.94 ml Balance 399.94 ml Intake IV Total 399.94 ml General Appearance: Alert, Oriented X3, Cooperative, No acute distress HEENT: Atraumatic Lungs: Clear to auscultation Cardiovascular: Regular rate Abdomen: Normal bowel sounds, Soft, No tenderness Medications Current Medications Medications Dose Ordered Sig/Tal Route Start Time Stop Time Status Last Admin Dose Admin Ondansetron HCl 4 mg Q4HP PRN IV 03/28/25 15:15 Docusate Sodium 100 mg BIDPRN PRN PO 03/28/25 15:15 Morphine Sulfate 2 mg Q4HPRN PRN IV 03/28/25 15:15 Nitroglycerin 0.4 mg Q5MINP PRN SL 03/28/25 15:15 Apixaban 5 mg BID PO 03/28/25 22:00 03/28/25 22:11 5 MG Atorvastatin Calcium 10 mg HS PO 03/28/25 22:00 03/28/25 22:11 10 MG Metoprolol Succinate 25 mg BID PO 03/29/25 10:00 Laboratory Results Laboratory Tests 03/29/25 04:12 Chemistry Test 03/28/25 12:00 03/29/25 04:12 Albumin 4.8 g/dL (3.2-4.8) 3.9 g/dL (3.2-4.8) Calcium Level 10.1 mg/dL (8.7-10.4) 8.8 mg/dL (8.7-10.4) Magnesium Level 2.3 mg/dL (1.6-2.6) Phosphorus Level 4.4 mg/dL (2.4-5.1) Total Protein 7.8 g/dL (5.7-8.2) 6.5 g/dL (5.7-8.2) Coagulation Test 03/29/25 04:12 D-Dimer, Quantitative 1.03 mg/L FEU (0.0-0.49) H Cardiac Markers Test 03/28/25 12:00 B-Type Natriuretic Peptide 152.10 pg/mL (0-100) LFT Test 03/28/25 12:00 03/29/25 04:12 Alanine Aminotransferase (ALT) 12 U/L (7-40) 13 U/L (7-40) Alkaline Phosphatase 130 U/L (46-116) H 100 U/L (46-116) Aspartate Amino Transferase (AST) 22 U/L (13-40) 22 U/L (13-40) Total Bilirubin 0.4 mg/dL (0.2-1.0) 0.4 mg/dL (0.2-1.0) Urinalysis Test 03/28/25 21:38 Urine Color Yellow (Yellow) Urine Clarity Clear (Clear) Urine pH 5.5 (5.0-9.0) Urine Specific [place] 1.024 (1.001-1.035) Urine Protein Negative (Negative) Urine Ketones Negative (Negative) Urine Blood Trace /uL (Negative) H Urine Nitrite Negative (Negative) Urine Bilirubin Negative (Negative) Urine Urobilinogen Normal mg/dL (Negative) Urine Leukocyte Esterase Negative /uL (Negative) Urine RBC 1 /hpf (0 - 4) Urine Microscopic WBC 4 /HPF (0-5) Urine Squamous Epithelial Cells Few /hpf (<5) Urine Bacteria None seen /hpf (None Seen) Urine Mucus Few (None Seen) Urine Glucose Normal mg/dL (Normal) Assessment/Plan Assessment/Plan AFib with RVR/paroxysmal SVT Congestive heart failure with history of EF 45% Coronary artery disease and history of CABG x3 vessels History of mitral valve replacement Hypertension History of CVA Chronic kidney disease stage IIIA Patient complains of some itching in the eyes Plan: We will check D-dimer. If elevated we will obtain V/Q scan. Claritin for the itching in the eyes. Of amiodarone at this time.. Further plan per orders. Total critical care time 35 minutes Plan discussed with: Patient, Other (Nursing) My Orders Orders - DAMARIS SMITH MD Procedure Category Date Status Time Transfer Orders XFER 03/29/25 Transmitted 09:59 Nm Vq Scan NM 03/29/25 Verified 10:45 Date of Service: Mar 29, 2025 Billing Provider: DAMARIS SMITH MD Common Visit Codes: [id number] CARE 30-74 MIN DAMARIS SMITH MD Mar 29, 2025 10:49
[2025-03-29] MEDS ORDERED: AMIO200T13 PO (11:29)
--- NOTE | 2025-03-29 11:53 | DVHINCON2 ---
Date Seen: Mar 29, 2025 Referring Physician MIR Joseph Reason for Consultation Afib with rvr History of Present Illness 74-year-old female with a history of paroxysmal atrial fibrillation on Eliquis presents to the emergency department with complaint of chest palpitations. The patient reports waking up with a sensation of heart "beating fast" . In the ED, she was found to be in atrial fibrillation with RVR and was started on amiodarone drip. Subsequently, her telemetry showed sinus rhythm in the 60s, and the amiodarone drip was discontinued. The patient currently reports feeling improved. She continues to take metoprolol succinate 25 mg twice daily and has a scheduled follow-up with her malt house kiln operator (unknown name of malt house kiln operator per pt) days sunday. Review of her medical records indicate that she was previously trialed on oral amiodarone but it was discontinued due to bradycardia. Other past medical history includes supraventricular tachycardia, chronic heart failure with preserved ejection fraction, severe coronary artery disease, status post triple-vessel coronary artery bypass. Past Medical History As stated in HPI Past Surgical History As stated in HPI Family History: FH: cancer G8 FATHER FH: heart disease G8 MOTHER Family History Reviewed, non-contributory to the management of this case. Social History The patient lives at home, denies smoking, alcohol or illicit drugs abuse. Allergies: Coded Allergies: NO KNOWN ALLERGIES (Unverified , 12/20/24) Home Meds Active Scripts Metoprolol Succinate (Metoprolol Succinate Er) 25 Mg Tab, 1 TAB PO DAILY, #60 TAB 5 Refills Prov:CHARIS ROLLINS MD 03/08/25 Clonidine Hydrochloride (Clonidine Hcl) 0.1 Mg Tab, 0.1 MG PO TIDPRN PRN for 90 Days, #270 TAB 3 Refills If systolic blood pressures more than 160 Prov:CHARIS ROLLINS MD 03/08/25 Reported Medications Amiodarone HCl (Amiodarone HCl) 200 Mg Tab, 1 TAB PO BID 03/29/25 Apixaban Base (ELIQUIS) 5 Mg Tab, 1 TAB PO BID 03/06/25 Atorvastatin Calcium (Lipitor) 10 Mg Tab, 1 TAB PO DAILY, #90 TAB 1 Refill 03/06/25 Current Medications Current Medications Medications (Trade) Dose Ordered Sig/Tal Route PRN Reason Start Time Stop Time Status Last Admin Ondansetron HCl (Zofran) 4 mg Q4HP PRN IV NAUSEA / VOMITING 03/28/25 15:15 Docusate Sodium (Colace Capsule) 100 mg BIDPRN PRN PO FOR CONSTIPATION 03/28/25 15:15 Morphine Sulfate 2 mg Q4HPRN PRN IV SEVERE PAIN (7-10 PAIN SCALE) 03/28/25 15:15 Nitroglycerin (Ntrostat Sublingual) 0.4 mg Q5MINP PRN SL FOR CHEST PAIN 03/28/25 15:15 Apixaban (Eliquis) 5 mg BID PO 03/28/25 22:00 03/28/25 22:11 Atorvastatin Calcium (Lipitor) 10 mg HS PO 03/28/25 22:00 03/28/25 22:11 Metoprolol Succinate (Toprol Xl) 25 mg BID PO 03/29/25 10:00 Review of Systems Constitutional: No symptom reported Ears, Nose, & Throat: No symptom reported Eyes: No symptom reported Neurological: No symptoms reported Pulmonary/Respiratory: No symptom reported Cardiovascular: Palpitations upon waking, denies chest pain, dizziness, syncope, or edema Gastrointestinal: No symptom reported Genitourinary: No symptom reported Musculoskeletal: No symptom reported Skin: No symptom reported Psychiatric: No symptom reported Endocrine: No symptom reported Hemotologic/Lymphatic: No symptom reported Vital Signs Vital Signs Date Time Temp Pulse Resp B/P (MAP) Pulse Ox O2 Delivery O2 Flow Rate FiO2 03/29/25 11:00 71 15 134/61 (85) 97 03/29/25 10:28 98.3 98.3 03/29/25 10:28 Room Air* 0 21 Physical Exam INITIAL VITAL SIGNS: Reviewed by me GENERAL: Alert and interactive. No acute distress. HEAD: Head is normocephalic and atraumatic. EYES: EOMI, PERRL. No scleral icterus. No conjunctival injection. ENT: Moist mucous membranes. NECK: Supple, No masses, Full range of motion. RESPIRATORY: No tachypnea. Clear breath sounds bilaterally. No wheezing, rales, rhonchi. CV: Normal S1 and S2, regular rate and rhythm. No murmurs. No edema GI/: Active bowel sounds, soft, nondistended, nontender. No guarding. No rebound. No masses. No CVA tenderness. INTEGUMENTARY: Warm and dry. No obvious rashes. NEUROLOGIC: Alert and oriented. Face is symmetric. Speech is normal. Moves all extremities equally. Labs/Diagnostic Data Labs Test 03/29/25 04:12 03/28/25 21:38 03/28/25 14:55 03/28/25 12:00 Range/Units White Blood Count 6.1 4.4-10.8 10^3/uL Red Blood Count 4.48 4.0-5.20 10^6/uL Hemoglobin 13.1 12.2-16.2 g/dL Hematocrit 38.8 36.0-46.0 % Mean Corpuscular Volume 86.5 80.0-100.0 fL Mean Corpuscular Hemoglobin 29.3 28.0-32.0 pg Mean Corpuscular Hemoglobin Concent 33.8 32.0-36.0 g/dL Red Cell Distribution Width 18.3 H 11.8-14.3 % Platelet Count 192 140-450 10^3/uL Mean Platelet Volume 8.8 6.9-10.8 fL Neutrophils (%) (Auto) 60.1 37.0-80.0 % Lymphocytes (%) (Auto) 30.2 10.0-50.0 % Monocytes (%) (Auto) 7.5 0.0-12.0 % Eosinophils (%) (Auto) 1.8 0.0-7.0 % Basophils (%) (Auto) 0.4 0.0-2.0 % Neutrophils # (Auto) 3.7 1.6-8.6 10 ^3/uL Lymphocytes # (Auto) 1.9 0.4-5.4 10 ^3/uL Monocytes # (Auto) 0.5 0-1.3 10 ^3/uL Eosinophils # (Auto) 0.1 0-0.8 10 ^3/uL Basophils # (Auto) 0 0-0.2 10 ^3/uL Nucleated Red Blood Cells 0.1 % D-Dimer, Quantitative 1.03 H 0.0-0.49 mg/L FEU Sodium Level 144 136-145 mmol/L Potassium Level 4.1 3.5-5.1 mmol/L Chloride Level 108 H 98-107 mmol/L Carbon Dioxide Level 27 20-31 mmol/L Anion Gap 9 5-15 Blood Urea Nitrogen 24 H 9-23 mg/dL Creatinine 1.02 0.550-1.02 mg/dL Glomerular Filtration Rate Calc 58 >90 mL/min BUN/Creatinine Ratio 23.5 H 10.0-20.0 Serum Glucose 92 74-106 mg/dL Calcium Level 8.8 8.7-10.4 mg/dL Total Bilirubin 0.4 0.2-1.0 mg/dL Aspartate Amino Transferase (AST) 22 13-40 U/L Alanine Aminotransferase (ALT) 13 7-40 U/L Alkaline Phosphatase 100 46-116 U/L Total Protein 6.5 5.7-8.2 g/dL Albumin 3.9 3.2-4.8 g/dL Thyroid Stimulating Hormone (TSH) 4.03 0.55-4.78 uIU/mL Urine Color Yellow Yellow Urine Clarity Clear Clear Urine pH 5.5 5.0-9.0 Urine Specific [place] 1.024 1.001-1.035 Urine Protein Negative Negative Urine Ketones Negative Negative Urine Blood Trace H Negative /uL Urine Nitrite Negative Negative Urine Bilirubin Negative Negative Urine Urobilinogen Normal Negative mg/dL Urine Leukocyte Esterase Negative Negative /uL Urine RBC 1 0 - 4 /hpf Urine Microscopic WBC 4 0-5 /HPF Urine Squamous Epithelial Cells Few <5 /hpf Urine Bacteria None seen None Seen /hpf Urine Mucus Few None Seen Urine Glucose Normal Normal mg/dL Troponin I High Sensitivity 10 </=34 ng/L Phosphorus Level 4.4 2.4-5.1 mg/dL Magnesium Level 2.3 1.6-2.6 mg/dL B-Type Natriuretic Peptide 152.10 0-100 pg/mL PROCEDURE(s): CXRP - CHEST PORTABLE REASON: palpitations, tachy ORDER NUMBER(s): [id number], ACCESSION NUMBER(s): [id number] CHEST RADIOGRAPH Indication: palpitations, tachy Technique: Single frontal view of the chest was obtained COMPARISON: XY CHEST PORTABLE on DOS: 03/05/25, XY CHEST XRAY 1 VIEW on DOS: 02/11/25 FINDINGS: Lines and Tubes: Median sternotomy Lungs: Clear Pleura: No effusion. No pneumothorax. Cardiomediastinal contours: Unremarkable Bones: Unremarkable IMPRESSION: No acute disease. Assessment Afib with RVR, now sinus rhythm Paroxysmal atrial fibrillation, stage 3A (on Eliquis) History of supraventricular tachycardia Chronic HFpEF, NYHA class II. EF 50% Severe coronary artery disease status post triple-vessel CABG Mitral valve regurgitation status post bioprosthetic mitral valve replacement Hypertension Dyslipidemia CVA without residual deficit Obesity Plan/Recommendation (Dr. Samuel): * Recent Transthoracic echocardiogram reveals EF 50% * [id number] VASc score: 7 points, HAS-BLED score: 2 points * Continue beta-eloy for rate control * Continue with Amiodarone 200mg PO BID for now, Monitor heart rate closely. Discontinue amiodarone if bradycardia. * Continue NOAC therapy, Eliquis * Monitor and replete electrolytes as needed, keep potassium greater than four and magnesium greater than two * Continue single antiplatelet therapy and lipid-lowering agent * Cardiac surveillance Amiodarone drip discontinued after rhythm stabilization. Noted the patient had prior intolerance to oral amiodarone due to bradycardia, currently sinus rhythm. Maintains therapeutic anticoagulation with Eliquis. Follow-up with malt house kiln operator scheduled on Sunday for further rhythm management discussion, including consideration of alternative antiarrhythmic therapy or potential ablation given recurrent AF/SVT. Plan discussed with: Patient NYHA Physical activity limitations: Class3(Marked) ordinary Date of Service: Mar 29, 2025 Billing Provider: JOSÉ SAMUEL Sr., MD Cardiology Common Codes: CONSULT ONLY Cardiology Consultation Codes: [id number] CONSULT <45MIN KETAN FERNANDES Mar 29, 2025 11:53
[2025-03-29] MEDS: METOPROLOL SUCCINATE XL 50 MG TAB PO SCH (12:55)
[2025-03-29] MEDS: LORATADINE 10 MG TAB PO ONE (12:55)
[2025-03-29] MEDS: AMIODARONE HCL 200 MG TAB PO SCH (12:55)
[2025-03-30 00:49] VITALS: BP 147/73; PULSE 65; RESP 18; TEMP 98.4; O2SAT 99
[2025-03-30 05:00] VITALS: BP 117/64; PULSE 71; RESP 17; TEMP 97; O2SAT 98
[2025-03-30 07:15] LABS: Calcium 9.4 mg/dL (8.7-10.4); Potassium 3.9 mmol/L (3.5-5.1); Sodium 143 mmol/L (136-145)
[2025-03-30 07:16] LABS: Anion Gap 9 (5-15); Carbon Dioxide 26 mmol/L (20-31)
[2025-03-30 07:21] LABS: BUN/Creatinine Ratio 19.8 (10.0-20.0); Blood Urea Nitrogen 19 mg/dL (9-23); Glucose 82 mg/dL (74-106)
[2025-03-30 07:22] LABS: Chloride 108 mmol/L (98-107)
[2025-03-30 08:00] VITALS: PULSE 59
[2025-03-30 09:00] VITALS: BP 154/82; PULSE 66; RESP 15; TEMP 98; O2SAT 99
--- NOTE | 2025-03-30 11:44 | DVHPN2 ---
Reviewed: Care Plan, H&P, Labs, Medications, Previous Orders, Radiology Objective Vitals Vital Signs Date Time Temp Pulse Resp B/P (MAP) Pulse Ox O2 Delivery O2 Flow Rate FiO2 03/30/25 10:12 66 154/82 03/30/25 09:00 98.0 15 99 98.0 03/30/25 08:00 Room Air* 0 21 Intake/Output Intake and Output 03/30/25 07:00 Intake Total 416.66 ml Balance 416.66 ml Intake Oral 400 ml IV Total 16.66 ml # Voids 6 # Bowel Movements 1 General Appearance: Alert, Oriented X3, Cooperative, No acute distress HEENT: Atraumatic Lungs: Clear to auscultation Cardiovascular: Regular rate Abdomen: Normal bowel sounds, Soft, No tenderness Medications Current Medications Medications Dose Ordered Sig/Tal Route Start Time Stop Time Status Last Admin Dose Admin Ondansetron HCl 4 mg Q4HP PRN IV 03/28/25 15:15 Docusate Sodium 100 mg BIDPRN PRN PO 03/28/25 15:15 Morphine Sulfate 2 mg Q4HPRN PRN IV 03/28/25 15:15 Nitroglycerin 0.4 mg Q5MINP PRN SL 03/28/25 15:15 Apixaban 5 mg BID PO 03/28/25 22:00 03/30/25 10:10 5 MG Atorvastatin Calcium 10 mg HS PO 03/28/25 22:00 03/29/25 21:06 10 MG Metoprolol Succinate 25 mg BID PO 03/29/25 10:00 03/30/25 10:12 25 MG Amiodarone HCl 200 mg BID PO 03/29/25 12:00 03/30/25 10:10 200 MG Laboratory Results Laboratory Tests 03/29/25 04:12 03/30/25 05:45 Chemistry Test 03/30/25 05:45 Calcium Level 9.4 mg/dL (8.7-10.4) Urinalysis Test 03/28/25 21:38 Urine Color Yellow (Yellow) Urine Clarity Clear (Clear) Urine pH 5.5 (5.0-9.0) Urine Specific [place] 1.024 (1.001-1.035) Urine Protein Negative (Negative) Urine Ketones Negative (Negative) Urine Blood Trace /uL (Negative) H Urine Nitrite Negative (Negative) Urine Bilirubin Negative (Negative) Urine Urobilinogen Normal mg/dL (Negative) Urine Leukocyte Esterase Negative /uL (Negative) Urine RBC 1 /hpf (0 - 4) Urine Microscopic WBC 4 /HPF (0-5) Urine Squamous Epithelial Cells Few /hpf (<5) Urine Bacteria None seen /hpf (None Seen) Urine Mucus Few (None Seen) Urine Glucose Normal mg/dL (Normal) ZOILA DEMARCO MD Mar 30, 2025 11:44
[2025-03-30 12:30] VITALS: BP 143/69; PULSE 62; RESP 15; TEMP 98.5; O2SAT 100
--- NOTE | 2025-03-30 13:49 | DVHPN2 ---
Consult Progress Note Subjective Other Systems: The patient remains in normal sinus rhythm on conveyor monitor No cardiac events seen overnight on conveyor monitor. Patient remains free from any cardiac symptoms Objective vital signs Vital Sign Date Time Temp Pulse Resp B/P (MAP) Pulse Ox O2 Delivery O2 Flow Rate FiO2 03/30/25 12:30 98.5 62 15 143/69 (93) 100 98.5 03/30/25 08:00 Room Air* 0 21 Total Intake and Output 03/29/25 03/29/25 03/30/25 15:00 23:00 07:00 Intake Total 16.66 ml 0 ml 400 ml Balance 16.66 ml 0 ml 400 ml medications Current Medications Medications Dose Ordered Sig/Tal Route Start Time Stop Time Status Last Admin Dose Admin Ondansetron HCl 4 mg Q4HP PRN IV 03/28/25 15:15 Docusate Sodium 100 mg BIDPRN PRN PO 03/28/25 15:15 Morphine Sulfate 2 mg Q4HPRN PRN IV 03/28/25 15:15 Nitroglycerin 0.4 mg Q5MINP PRN SL 03/28/25 15:15 Apixaban 5 mg BID PO 03/28/25 22:00 03/30/25 10:10 5 MG Atorvastatin Calcium 10 mg HS PO 03/28/25 22:00 03/29/25 21:06 10 MG Metoprolol Succinate 25 mg BID PO 03/29/25 10:00 03/30/25 10:12 25 MG Amiodarone HCl 200 mg BID PO 03/29/25 12:00 03/30/25 10:10 200 MG Examination: GENERAL:Normal, LUNGS:Normal, CVS:Normal, NEURO:Normal laboratory and microbiology Laboratory Tests 03/30/25 05:45 03/29/25 04:12 Test 03/30/25 05:45 Range/Units Serum Glucose 82 74-106 mg/dL Problem List/Assessment/Plan Problem List/Assessment/Plan Afib with RVR, now sinus rhythm Paroxysmal atrial fibrillation, stage 3A (on Eliquis) History of supraventricular tachycardia Chronic HFpEF, NYHA class II, EF 50% Severe coronary artery disease status post triple-vessel CABG Mitral valve regurgitation status post bioprosthetic mitral valve replacement Hypertension Dyslipidemia CVA without residual deficit Obesity Plan/Recommendations (Dr. Aparicio): * Recent Transthoracic echocardiogram reveals EF 50% * [id number] VASc score: 7 points, HAS-BLED score: 2 points * Continue beta-eloy for rate control * Continue with Amiodarone 200mg PO BID for now, Monitor heart rate closely. Discontinue amiodarone if bradycardia. * Continue NOAC therapy, Eliquis * Monitor and replete electrolytes as needed, keep potassium greater than four and magnesium greater than two * Continue single antiplatelet therapy and lipid-lowering agent * Cardiac surveillance Amiodarone drip discontinued after rhythm stabilization. Noted the patient had prior intolerance to oral amiodarone due to bradycardia, currently sinus rhythm. Maintain anticoagulation with NOAC, Eliquis. Follow-up with cable assembler scheduled on 03/31/25 with for further rhythm management discussion, including consideration of alternative antiarrhythmic therapy or potential ablation given recurrent AF/SVT. There is no further inpatient cardiac workup indicated at this time. Thank you for allowing us to care for this patient. Please call with any questions or concerns. This medical document was created using an electronic medical record system with voice recognition software and computerized dictation system. Although this document has been carefully reviewed, there might still be some phonetic and typographical errors. Occasional wrong-word or ``sound-alike substitutions may have occurred due to the inherent limitations of voice recognition software. These areas are purely typographical due to imperfections of the software programs and do not reflect any compromise in the patient's medical care. Please read the chart carefully and recognize, using context, where these substitutions have occurred. Plan discussed with: Patient Date of Service: Mar 30, 2025 Billing Provider: RAMONA HOLLAND Common Visit Codes: [id number] INP/OBS CARE(HIGH) RAMONA HOLLAND Mar 30, 2025 13:49
--- NOTE | 2025-03-30 14:09 | DVH ---
NUCLEAR MEDICINE VENTILATION/PERFUSION LUNG SCAN. INDICATION: PULMONARY EMBOLISM COMPARISON: None TECHNIQUE: Following intravenous demonstration of 6.4 millicuries of technetium 99m MAA, and inhalat ion of 5.5 mCi of Xe 133 scintigrams were obtained in multiple projections of the lungs. FINDINGS: There is normal uptake of radionuclide on both the ventilation and perfusion portions of the examinat ion. No mismatched perfusion defects are demonstrated. Uptake is normally homogeneous. IMPRESSION: Low probability for PE.
[2025-03-30 16:46] VITALS: BP 131/74; PULSE 60; RESP 15; TEMP 97.6; O2SAT 98
--- NOTE | 2025-03-30 17:54 | DVHDS2 ---
Discharge Summary Date of Admission Mar 28, 2025 at 15:14 Labs/Diagnostic Data: Laboratory Results Test 03/30/25 05:45 03/29/25 04:12 03/28/25 21:38 03/28/25 14:55 Sodium Level 143 mmol/L (136-145) Potassium Level 3.9 mmol/L (3.5-5.1) Chloride Level 108 mmol/L (98-107) Carbon Dioxide Level 26 mmol/L (20-31) Anion Gap 9 (5-15) Blood Urea Nitrogen 19 mg/dL (9-23) Creatinine 0.96 mg/dL (0.550-1.02) Glomerular Filtration Rate Calc 62 mL/min (>90) BUN/Creatinine Ratio 19.8 (10.0-20.0) Serum Glucose 82 mg/dL (74-106) Calcium Level 9.4 mg/dL (8.7-10.4) White Blood Count 6.1 10^3/uL (4.4-10.8) Red Blood Count 4.48 10^6/uL (4.0-5.20) Hemoglobin 13.1 g/dL (12.2-16.2) Hematocrit 38.8 % (36.0-46.0) Mean Corpuscular Volume 86.5 fL (80.0-100.0) Mean Corpuscular Hemoglobin 29.3 pg (28.0-32.0) Mean Corpuscular Hemoglobin Concent 33.8 g/dL (32.0-36.0) Red Cell Distribution Width 18.3 % (11.8-14.3) Platelet Count 192 10^3/uL (140-450) Mean Platelet Volume 8.8 fL (6.9-10.8) Neutrophils (%) (Auto) 60.1 % (37.0-80.0) Lymphocytes (%) (Auto) 30.2 % (10.0-50.0) Monocytes (%) (Auto) 7.5 % (0.0-12.0) Eosinophils (%) (Auto) 1.8 % (0.0-7.0) Basophils (%) (Auto) 0.4 % (0.0-2.0) Neutrophils # (Auto) 3.7 10 ^3/uL (1.6-8.6) Lymphocytes # (Auto) 1.9 10 ^3/uL (0.4-5.4) Monocytes # (Auto) 0.5 10 ^3/uL (0-1.3) Eosinophils # (Auto) 0.1 10 ^3/uL (0-0.8) Basophils # (Auto) 0 10 ^3/uL (0-0.2) Nucleated Red Blood Cells 0.1 % D-Dimer, Quantitative 1.03 mg/L FEU (0.0-0.49) Total Bilirubin 0.4 mg/dL (0.2-1.0) Aspartate Amino Transferase (AST) 22 U/L (13-40) Alanine Aminotransferase (ALT) 13 U/L (7-40) Alkaline Phosphatase 100 U/L (46-116) Total Protein 6.5 g/dL (5.7-8.2) Albumin 3.9 g/dL (3.2-4.8) Thyroid Stimulating Hormone (TSH) 4.03 uIU/mL (0.55-4.78) Urine Color Yellow (Yellow) Urine Clarity Clear (Clear) Urine pH 5.5 (5.0-9.0) Urine Specific [place] 1.024 (1.001-1.035) Urine Protein Negative (Negative) Urine Ketones Negative (Negative) Urine Blood Trace /uL (Negative) Urine Nitrite Negative (Negative) Urine Bilirubin Negative (Negative) Urine Urobilinogen Normal mg/dL (Negative) Urine Leukocyte Esterase Negative /uL (Negative) Urine RBC 1 /hpf (0 - 4) Urine Microscopic WBC 4 /HPF (0-5) Urine Squamous Epithelial Cells Few /hpf (<5) Urine Bacteria None seen /hpf (None Seen) Urine Mucus Few (None Seen) Urine Glucose Normal mg/dL (Normal) Troponin I High Sensitivity 10 ng/L (</=34) Test 03/28/25 12:00 Phosphorus Level 4.4 mg/dL (2.4-5.1) Magnesium Level 2.3 mg/dL (1.6-2.6) B-Type Natriuretic Peptide 152.10 pg/mL (0-100) Other Laboratory Tests 03/30/25 05:45 03/29/25 04:12 Discharge Instruct/Medications Scheduled Apixaban Base (Eliquis), 1 TAB PO BID, (Reported) Atorvastatin Calcium (Lipitor), 1 TAB PO DAILY, (Reported) Metoprolol Succinate (Metoprolol Succinate Er), 1 TAB PO DAILY Scheduled PRN Clonidine Hydrochloride (Clonidine Hcl), 0.1 MG PO TIDPRN PRN Discontinued Medications Amiodarone HCl (Amiodarone HCl), 1 TAB PO BID, (Reported) Discharge Statement: "Patient was advised to return to the ER or call 911 if any headaches, dizziness, shortness of breath, chest pain, abdominal pain, bleeding, fevers, or worsening of medical condition. Patient was counseled about treatment plan, medications, possible side effects, patientverbalized understanding. All questions were answered to the best of my ability. This discharge took greater then 30 minutes in planning, reviewing documentation, counseling the patient, and discussing with other team members." ASSESSMENT ASSESSMENT Assessment ZOILA DEMARCO MD Mar 30, 2025 17:54
--- NOTE | 2025-03-30 17:57 | DVHDS2 ---
Discharge Summary Date of Admission Mar 28, 2025 at 15:14 Date of Discharge: Mar 30, 2025 Admitting Diagnosis AFib with RVR/paroxysmal SVT Congestive heart failure with history of EF 45% Coronary artery disease and history of CABG x3 vessels History of mitral valve replacement Hypertension History of CVA Chronic kidney disease stage IIIA Patient complains of some itching in the eyes Labs/Diagnostic Data: Laboratory Results Test 03/30/25 05:45 03/29/25 04:12 03/28/25 21:38 03/28/25 14:55 Sodium Level 143 mmol/L (136-145) Potassium Level 3.9 mmol/L (3.5-5.1) Chloride Level 108 mmol/L (98-107) Carbon Dioxide Level 26 mmol/L (20-31) Anion Gap 9 (5-15) Blood Urea Nitrogen 19 mg/dL (9-23) Creatinine 0.96 mg/dL (0.550-1.02) Glomerular Filtration Rate Calc 62 mL/min (>90) BUN/Creatinine Ratio 19.8 (10.0-20.0) Serum Glucose 82 mg/dL (74-106) Calcium Level 9.4 mg/dL (8.7-10.4) White Blood Count 6.1 10^3/uL (4.4-10.8) Red Blood Count 4.48 10^6/uL (4.0-5.20) Hemoglobin 13.1 g/dL (12.2-16.2) Hematocrit 38.8 % (36.0-46.0) Mean Corpuscular Volume 86.5 fL (80.0-100.0) Mean Corpuscular Hemoglobin 29.3 pg (28.0-32.0) Mean Corpuscular Hemoglobin Concent 33.8 g/dL (32.0-36.0) Red Cell Distribution Width 18.3 % (11.8-14.3) Platelet Count 192 10^3/uL (140-450) Mean Platelet Volume 8.8 fL (6.9-10.8) Neutrophils (%) (Auto) 60.1 % (37.0-80.0) Lymphocytes (%) (Auto) 30.2 % (10.0-50.0) Monocytes (%) (Auto) 7.5 % (0.0-12.0) Eosinophils (%) (Auto) 1.8 % (0.0-7.0) Basophils (%) (Auto) 0.4 % (0.0-2.0) Neutrophils # (Auto) 3.7 10 ^3/uL (1.6-8.6) Lymphocytes # (Auto) 1.9 10 ^3/uL (0.4-5.4) Monocytes # (Auto) 0.5 10 ^3/uL (0-1.3) Eosinophils # (Auto) 0.1 10 ^3/uL (0-0.8) Basophils # (Auto) 0 10 ^3/uL (0-0.2) Nucleated Red Blood Cells 0.1 % D-Dimer, Quantitative 1.03 mg/L FEU (0.0-0.49) Total Bilirubin 0.4 mg/dL (0.2-1.0) Aspartate Amino Transferase (AST) 22 U/L (13-40) Alanine Aminotransferase (ALT) 13 U/L (7-40) Alkaline Phosphatase 100 U/L (46-116) Total Protein 6.5 g/dL (5.7-8.2) Albumin 3.9 g/dL (3.2-4.8) Thyroid Stimulating Hormone (TSH) 4.03 uIU/mL (0.55-4.78) Urine Color Yellow (Yellow) Urine Clarity Clear (Clear) Urine pH 5.5 (5.0-9.0) Urine Specific [place] 1.024 (1.001-1.035) Urine Protein Negative (Negative) Urine Ketones Negative (Negative) Urine Blood Trace /uL (Negative) Urine Nitrite Negative (Negative) Urine Bilirubin Negative (Negative) Urine Urobilinogen Normal mg/dL (Negative) Urine Leukocyte Esterase Negative /uL (Negative) Urine RBC 1 /hpf (0 - 4) Urine Microscopic WBC 4 /HPF (0-5) Urine Squamous Epithelial Cells Few /hpf (<5) Urine Bacteria None seen /hpf (None Seen) Urine Mucus Few (None Seen) Urine Glucose Normal mg/dL (Normal) Troponin I High Sensitivity 10 ng/L (</=34) Test 03/28/25 12:00 Phosphorus Level 4.4 mg/dL (2.4-5.1) Magnesium Level 2.3 mg/dL (1.6-2.6) B-Type Natriuretic Peptide 152.10 pg/mL (0-100) Other Laboratory Tests 03/30/25 05:45 03/29/25 04:12 Brief Hx & Hospital Course: This is a 72 years old female with extensive cardiac history including paroxysmal supraventricular tachycardia, congestive heart failure, coronary artery disease status post triple bypass, mitral valve replacement, mitral regurgitation, hypertension, prior CVA with residual deficits came to emergency department because of heart palpitation upon walking in the morning. She apparently took a dose of metoprolol but continuing to feel palpitation and dizziness. Her heart rate was 124. She decided to come to the hospital for further evaluation. In the ER she was given more metoprolol and heart rate is better controlled. The patient also was started on IV amiodarone drip. The patient was admitted. Deputy Assessor see the patient. Recommend to discontinuing IV amiodarone and the patient remained in sinus rhythm today. Per rotary kiln operator's the patient had intolerance problem with oral amiodarone in the past so is has been stopped. Today the patient is in sinus rhythm. No complain of heart palpitation. No complain of palpitation during ambulation. I am going to discharge the patient home. Advised the patient to follow up with rotary kiln operator per schedule. Follow up with primary care physician 1-2 weeks. Stopped taking home medication amiodarone. Continuing other medication including Eliquis and metoprolol. Physical exam: HEENT: Normocephalic atraumatic pupils equal react to light and accommodation. Extraocular muscles intact, conjunctiva pink, oropharynx moist, no thrush, no exudate. Lymphatic: No lymphadenopathy Cardiovascular exam: S1, S2 was heard. No murmurs, rubs, gallops Lung: Clear on auscultation bilaterally, no wheeze, rale, rhonchi. GI: Abdominal soft, nondistended, nontenderness, positive bowel sounds. Extremity: No crepitus, cyanosis, edema. Pedal pulses present bilateral. Full range of motion. Skin: Normal turgor, no rash. Psych: Alert, oriented x3. Neurology: No focal deficits, cranial nerve II to XII grossly intact. This medical document was created using an electronic medical record system with [employer] direct computerized dictation system. Although this document has been carefully reviewed, there may still be some phonetic and typographical errors. These areas are purely typographical due to imperfections of the software programs, and do not reflect any compromise in the patient's medical care. Condition at Discharge: Stable Final Diagnosis/Problems List AFib with RVR/paroxysmal SVT Congestive heart failure with history of EF 45% Coronary artery disease and history of CABG x3 vessels History of mitral valve replacement Hypertension History of CVA Chronic kidney disease stage IIIA Patient complains of some itching in the eyes Discharge Disposition: Home Discharge Instruct/Medications Diet: Cardiac 2g Na,low cholest Activity: No Restrictions, As Tolerated Follow Up/Referral: pcp 1-2 weeks cardiology per schedule Medications: See medlist. Scheduled Apixaban Base (Eliquis), 1 TAB PO BID, (Reported) Atorvastatin Calcium (Lipitor), 1 TAB PO DAILY, (Reported) Metoprolol Succinate (Metoprolol Succinate Er), 1 TAB PO DAILY Scheduled PRN Clonidine Hydrochloride (Clonidine Hcl), 0.1 MG PO TIDPRN PRN Discontinued Medications Amiodarone HCl (Amiodarone HCl), 1 TAB PO BID, (Reported) Discharge Statement: "Patient was advised to return to the ER or call 911 if any headaches, dizziness, shortness of breath, chest pain, abdominal pain, bleeding, fevers, or worsening of medical condition. Patient was counseled about treatment plan, medications, possible side effects, patientverbalized understanding. All questions were answered to the best of my ability. This discharge took greater then 30 minutes in planning, reviewing documentation, counseling the patient, and discussing with other team members." ASSESSMENT ASSESSMENT Assessment Afib Date of Service: Mar 30, 2025 Billing Provider: ZOILA DEMARCO MD Common Visit Codes: 27123-XIV/OBS DISCH DAY >30min ZOILA DEMARCO MD Mar 30, 2025 17:57
== END 2025-03-30 20:20 | disposition home or self-care (01) | DRG 309 ==
LOC: ER 11:48 → OVERFLOW 15:14 → TELE-WESTW 03-29 14:45
PROVIDERS: ADMIT Internal Medicine; ATTEND Internal Medicine
DX: I48.0 Paroxysmal atrial fibrillation (principal); I13.0 Hypertensive heart and chronic kidney disease with heart failure and stage 1 through stage 4 chronic kidney disease, or unspecified chronic kidney disease; I50.32 Chronic diastolic (congestive) heart failure; I47.19 Other supraventricular tachycardia; I34.0 Nonrheumatic mitral (valve) insufficiency; I25.10 Atherosclerotic heart disease of native coronary artery without angina pectoris; E78.5 Hyperlipidemia, unspecified; E66.9 Obesity, unspecified; N18.31 Chronic kidney disease, stage 3a; Z95.1 Presence of aortocoronary bypass graft; Z86.73 Personal history of transient ischemic attack (TIA), and cerebral infarction without residual deficits; Z79.01 Long term (current) use of anticoagulants; Z79.899 Other long term (current) drug therapy; Z95.3 Presence of xenogenic heart valve; Z68.29 Body mass index [BMI] 29.0-29.9, adult
CPT/HCPCS: 36415; 71045; 78582; 80048; 80053; 81001; 83735; 83880; 84100; 84443; 84484; 85025; 85379; 87081; 93005; 96365; 96375; 99291; G0378

== ENCOUNTER 2025-04-13 08:26 | Outpatient (CLI) | payer MEDICAID ==
[2025-04-13 09:23] LABS: Hematocrit 40.0 % (36.0-46.0); Hemoglobin 13.1 g/dL (12.2-16.2); Mean Corpuscular Hemoglobin 28.7 pg (28.0-32.0); Mean Corpuscular Volume 87.8 fL (80.0-100.0); Nucleated Red Blood Cells % 0.1 %
[2025-04-13 09:38] LABS: Alanine Aminotransferase 12 U/L (7-40); Albumin 4.3 g/dL (3.2-4.8); Alkaline Phosphatase 105 U/L (46-116); Anion Gap 7 (5-15); BUN/Creatinine Ratio 20.0 (10.0-20.0); Blood Urea Nitrogen 18 mg/dL (9-23); Calcium 9.1 mg/dL (8.7-10.4); Carbon Dioxide 27 mmol/L (20-31); Cholesterol 172 mg/dL (< 200); Glucose 86 mg/dL (74-106); HDL Cholesterol 52 mg/dL (40-59); Potassium 4.4 mmol/L (3.5-5.1); Sodium 143 mmol/L (136-145); Total Protein 6.9 g/dL (5.7-8.2); Triglycerides 147 mg/dL (< 150)
[2025-04-13 09:39] LABS: Bilirubin, Total 0.4 mg/dL (0.2-1.0)
[2025-04-13 09:45] LABS: Chloride 109 mmol/L (98-107)
[2025-04-13 10:20] LABS: Urine Protein, UAD Negative (Negative)
== END 2025-04-13 17:00 | disposition home or self-care (01) ==
LOC: LAB 08:26
PROVIDERS: ATTEND Nurse Practitioner Family
DX: I10 Essential (primary) hypertension (principal); E78.5 Hyperlipidemia, unspecified; E55.9 Vitamin D deficiency, unspecified; E03.9 Hypothyroidism, unspecified; R73.9 Hyperglycemia, unspecified
CPT/HCPCS: 36415; 80053; 80061; 81003; 82306; 83036; 84439; 84443; 85025

== ENCOUNTER 2025-04-15 10:41 | Inpatient (IN) | payer MEDICAID ==
[~2025-04-15] VITALS: Ht 160 cm; Wt 78.9 kg
--- NOTE | 2025-04-15 10:58 | ECG ---
[facility] Test Date: 2025-04-15 Test Time: 10:45:41 Pat Name: VINAY FLYNN Department: [facility] ED Patient ID: [facility]-[id number] Room: 0231T Gender: F Head Of Geography: mikki : 1950 Requested By: JARAD ALVARES Order Number: [id number] Reading MD: Mohsen Aparicio Measurements Intervals [place] Rate: 144 P: 0 NE: 0 QRS: 97 QRSD: 99 T: 51 QT: 333 QTc: 516 Interpretive Statements Atrial flutter with varied AV block, Right axis deviation Low voltage, precordial leads RSR' in V1 or V2, probably normal variant Prolonged QT interval Electronically Signed On 04-20-2025 22:36:38 PDT by Mohsen Aparicio Please click the below link to view image of tracing.
--- NOTE | 2025-04-15 11:07 | ED.PDOC ---
HPI Comments 74 year old female presents to the ED with a chief complaint of palpitations onset today (04/15/25). Patient states she woke up this morning, checked her BP and HR was elevated about 135, called telehealth nurse and was advised to take her medication, rest and recheck BP. Patient took a nap, rechecked BP, HR was elevated to 140s, came to ED. She is currently experiencing dizziness, blurry vision, and palpitations. Upon ED arrival EKG was done, she was tachycardiac 140. Patient had CABG done September 2024, Senior Systems Analyst, Dr. Coy. PMHx a-fib, HTN, CHF, HLD, CAD. Denies headache, chest pain, shortness of breath, fever, chills, nausea, vomiting, diarrhea. No other symptoms or modifying factors present at this time. Chief Complaint: Palpitations Time Seen by MD: 10:55 Primary Care Provider: UNKNOWN Reviewed Notes: Medications, Allergies Allergies: Coded Allergies: NO KNOWN ALLERGIES (Unverified , 12/20/24) Home Meds Active Scripts Metoprolol Succinate (Metoprolol Succinate Er) 25 Mg Tab, 1 TAB PO DAILY, #60 TAB 5 Refills Prov:CHARIS ROLLINS MD 03/08/25 Clonidine Hydrochloride (Clonidine Hcl) 0.1 Mg Tab, 0.1 MG PO TIDPRN PRN for 90 Days, #270 TAB 3 Refills If systolic blood pressures more than 160 Prov:CHARIS ROLLINS MD 03/08/25 Reported Medications Apixaban Base (ELIQUIS) 5 Mg Tab, 1 TAB PO BID 03/06/25 Atorvastatin Calcium (Lipitor) 10 Mg Tab, 1 TAB PO DAILY, #90 TAB 1 Refill 03/06/25 Information Source: Patient, Relative Mode of Arrival: Ambulatory Severity: Moderate Timing: Hours Duration: Since onset Prehospital treatment: None Onset: At Rest Cardiac Risk Factors: Hyperlipidemia, HTN PE Risk Factors: Recent Surgery (CABG Sep 2024) History of: Similar pain in past Modifying Factors: Nothing Associated Signs and Symptoms: Palpitations Past Medical History PAST MEDICAL HISTORY: AFIB, CAD, CHF, High Lipids, HTN Surgical History: CABG CANADIAN BACON TIER History: Denies all CANADIAN BACON TIER Hx Family History Family History: Reviewed,noncontributory to illness Social History Smoker: Non-Smoker Alcohol: Denies ETOH Use Drugs: Denies Drug Use Lives In: Home Constitutional: denies: chills, diaphoresis, fatigue, fever, malaise, sweats, weakness, others EENTM: reports: blurred vision; denies: double vision, ear bleeding, ear discharge, ear drainage, ear pain, ear ringing, eye pain, eye redness, hearing loss, mouth pain, mouth swelling, nasal discharge, nose bleeding, nose congestion, nose pain, photophobia, tearing, throat pain, throat swelling, voice changes, others Respiratory: denies: cough, hemoptysis, orthopnea, SOB at rest, shortness of breath, SOB with excertion, stridor, wheezing, others Cardiovascular: reports: palpitations; denies: chest pain, dizzy spells, diaphoresis, Dyspnea on exertion, edema, irregular heart beat, left arm pain, lightheadedness, PND, syncope, others Gastrointestinal: denies: abdomen distended, abdominal pain, blood streaked bowels, constipated, diarrhea, dysphagia, difficulty swallowing, hematemesis, melena, nausea, poor appetite, poor fluid intake, rectal bleeding, rectal pain, vomiting, others Genitourinary: denies: abnormal vagina bleeding, burning, dyspareunia, dysuria, flank pain, frequency, hematuria, incontinence, pain, , vagina discharge, urgency, others Neurological: reports: dizziness; denies: fainting, headache, left sided numbness, left sided weakness, numbness, paresthesia, pre-existing deficit, right sided numbness, right sided weakness, seizure, speech problems, tingling, tremors, weakness, others Musculoskeletal: denies: back pain, gout, joint pain, joint swelling, muscle pain, muscle stiffness, neck pain, others Integumetry: denies: bruises, change in color, change in hair/nails, dryness, laceration, lesions, lumps, rash, wounds, others Allergic/Immunocompromised: denies: Difficulty Healing, Frequent Infections, Hives, Itching, others Hematologic/Lymphatic: denies: anemia, blood clots, easy bleeding, easy bruising, swollen glands, others Endocrine: denies: excessive hunger, excessive sweating, excessive thirst, excessive urination, flushing, intolerance to cold, intolerance to heat, unexplained weight gain, unexplained weight loss, others Psychiatric: denies: anxiety, bipolar disorder, depression, hopeless, panic disorder, schizophrenia, sleepless, suicidal, others All Other Systems: Reviewed and Negative Physical Exam General Appearance: Normal HEENT: Normal ENT Inspection, Pharynx Normal, TMs Normal Neck: Full Range of Motion, Non-Tender, Normal, Normal Inspection Respiratory: Chest Non-Tender, Lungs Clear, No Accessory Muscle Use, No Respiratory Distress, Normal Breath Sounds Cardiovascular: No Edema, No JVD, No Murmur, No Gallop, Normal Peripheral Pulses, Regular Rate/Rhythm Breast Exam: Deferred Gastrointestinal: No Organomegaly, Non Tender, No Pulsatile Mass, Normal Bowel Sounds, Soft Genitalia: Deferred Pelvic: Deferred Rectal: Deferred Extremities: No calf tenderness, Normal capillary refill, Normal inspection, Normal range of motion, Non-tender, No pedal edema Musculoskeletal : Apperance: Normal Neurologic: Alert, gritting machine operator II-XII nml as Tested, No Motor Deficits, Normal Affect, Normal Mood, No Sensory Deficits Cerebellar Function: Normal Reflexes: Normal Skin: Dry, Normal Color, Warm Lymphatic: No Adenopathy Was a procedure done? Was a procedure done?: No X-Ray, Labs, Meds, VS Vital Signs Date Time Temp Pulse Resp B/P (MAP) Pulse Ox O2 Delivery O2 Flow Rate FiO2 04/15/25 11:49 143 04/15/25 10:45 98.0 148 20 130/64 99 98.0 04/15/25 10:45 144 Lab Test 04/15/25 10:52 Range/Units White Blood Count 6.1 4.4-10.8 10^3/uL Red Blood Count 5.25 H 4.0-5.20 10^6/uL Hemoglobin 15.3 # 12.2-16.2 g/dL Hematocrit 45.4 # 36.0-46.0 % Mean Corpuscular Volume 86.4 80.0-100.0 fL Mean Corpuscular Hemoglobin 29.1 28.0-32.0 pg Mean Corpuscular Hemoglobin Concent 33.6 32.0-36.0 g/dL Red Cell Distribution Width 18.4 H 11.8-14.3 % Platelet Count 213 140-450 10^3/uL Mean Platelet Volume 9.1 6.9-10.8 fL Neutrophils (%) (Auto) 50.6 37.0-80.0 % Lymphocytes (%) (Auto) 37.9 10.0-50.0 % Monocytes (%) (Auto) 8.8 0.0-12.0 % Eosinophils (%) (Auto) 2.4 0.0-7.0 % Basophils (%) (Auto) 0.3 0.0-2.0 % Neutrophils # (Auto) 3.1 1.6-8.6 10 ^3/uL Lymphocytes # (Auto) 2.3 0.4-5.4 10 ^3/uL Monocytes # (Auto) 0.5 0-1.3 10 ^3/uL Eosinophils # (Auto) 0.1 0-0.8 10 ^3/uL Basophils # (Auto) 0 0-0.2 10 ^3/uL Nucleated Red Blood Cells 0.1 % Sodium Level 143 136-145 mmol/L Potassium Level 4.1 3.5-5.1 mmol/L Chloride Level 107 98-107 mmol/L Carbon Dioxide Level 25 20-31 mmol/L Anion Gap 11 5-15 Blood Urea Nitrogen 20 9-23 mg/dL Creatinine 1.04 H 0.550-1.02 mg/dL Glomerular Filtration Rate Calc 56 >90 mL/min BUN/Creatinine Ratio 19.2 10.0-20.0 Serum Glucose Pending Calcium Level 9.5 8.7-10.4 mg/dL Troponin I High Sensitivity 11 </=34 ng/L B-Type Natriuretic Peptide Pending [place] [id number] Ph: [phone] DIAGNOSTIC IMAGING Diagnostic Imaging Report : [id number] Signed PATIENT: VINAY FLYNNACCT: [id number] UNIT: [id number] : 1950 LOC: ER ROOM / BED: / AGE / SEX: 74 / F ADM STATUS: REG ER SERVICE 1109 ORDERING PHYSICIAN: JARAD ALVARES MD PROCEDURE(s): CXRP - CHEST PORTABLE REASON: palpitations ORDER NUMBER(s): [id number], ACCESSION NUMBER(s): [id number] CHEST RADIOGRAPH Indication: palpitations Technique: Single frontal view of the chest was obtained COMPARISON: XY CHEST PORTABLE on DOS: 03/28/25, XY CHEST PORTABLE on DOS: 03/05/25, XY CHEST XRAY 1 VIEW on DOS: 02/11/25 FINDINGS: Lines and Tubes: Median sternotomy Lungs: Clear Pleura: No effusion. No pneumothorax. Cardiomediastinal contours: Unremarkable Bones: Unremarkable IMPRESSION: No acute disease. ATED BY: DINH JANG MD DICTATED DATE/TIME: 04/15/25 1146 SIGNED BY: DINH JANG MD SIGNED DATE/TIME: 04/15/25 1146 CC: Time of 1ST Reevaluation: : Reevaluation 1ST: Unchanged Patient Education/Counseling: Diagnosis, Treatment, Prognosis Family Education/Counseling: Diagnosis, Treatment, Prognosis Additional Information The following tests were ordered, and results were reviewed by me: EKG -x3, BMP, CBC, TROP -x3, BNP, XY CHEST Additional Information was gathered from interviewing the following independent historians: son I reviewed and agreed with the following test results read by other providers: XY CHEST I discussed treatment and results with medical personnel and: patient and son Comprehensive systems review obtained and negative except for what is stated in the HPI. SEPSIS Sepsis Screen Date sepsis recognized/suspect: Apr 15, 2025 Time Sepsis recognized/suspect: 1045 Recent Procedure: No Respiratory Rate >20: No Heart Rate >90: Yes Temp<36 C (96.8 F) or >38.3 C: No SBP <90 or MAP <65 mmHG: No New Acute Mental Status Change: No Is the patient on CPAP, BIPAP,: No Physician Orders Electrocardigram (04/15/25 11:56) Electrocardigram (04/15/25 13:56) Basic Metabolic Panel (04/15/25 11:09) B-Type Natriuretic Peptide (04/15/25 11:09) Chest Portable (04/15/25 11:09) Troponin-I Hs (04/15/25 12:09) Troponin-I Hs (04/15/25 14:09) Vital Signs Date Time Temp Pulse Resp B/P (MAP) Pulse Ox O2 Delivery O2 Flow Rate FiO2 04/15/25 11:49 143 04/15/25 10:45 98.0 148 20 130/64 99 98.0 04/15/25 10:45 144 Laboratory Tests Test 04/15/25 10:52 White Blood Count 6.1 10^3/uL (4.4-10.8) Critical Care Note Critical Care Time?: No Stability Stability form required: No I personally scribed for JARAD ALVARES MD [facility] on 04/15/25 at 11:07. Electronically submitted by Nano Campoverde ([email or web address]). I personally scribed for JARAD ALVARES MD ([facility] on 04/15/25 at 11:59. Electronically submitted by Nano Campoverde ([email or web address]). I personally scribed for JARAD ALVARES MD ([email or web address]) on 04/15/25 at 12:00. Electronically submitted by Naon Campoverde ([email or web address]). JARAD ALVARES MD Apr 15, 2025 11:07
[2025-04-15 11:40] LABS: Hematocrit 45.4 % (36.0-46.0); Hemoglobin 15.3 g/dL (12.2-16.2); Mean Corpuscular Hemoglobin 29.1 pg (28.0-32.0); Mean Corpuscular Volume 86.4 fL (80.0-100.0); Nucleated Red Blood Cells % 0.1 %
[2025-04-15 11:48] LABS: Potassium 4.1 mmol/L (3.5-5.1); Sodium 143 mmol/L (136-145)
[2025-04-15 11:49] LABS: Anion Gap 11 (5-15); Calcium 9.5 mg/dL (8.7-10.4); Carbon Dioxide 25 mmol/L (20-31)
--- NOTE | 2025-04-15 11:49 | DVH ---
CHEST RADIOGRAPH Indication: palpitations Technique: Single frontal view of the chest was obtained COMPARISON: XY CHEST PORTABLE on DOS: 03/28/25, XY CHEST PORTABLE on DOS: 03/05/25, XY CHEST XRAY 1 VIEW on DOS: 02/11/25 FINDINGS: Lines and Tubes: Median sternotomy Lungs: Clear Pleura: No effusion. No pneumothorax. Cardiomediastinal contours: Unremarkable Bones: Unremarkable IMPRESSION: No acute disease.
[2025-04-15 11:50] LABS: Chloride 107 mmol/L (98-107)
[2025-04-15 11:54] LABS: BUN/Creatinine Ratio 19.2 (10.0-20.0); Blood Urea Nitrogen 20 mg/dL (9-23)
[2025-04-15 12:10] LABS: Glucose 104 mg/dL (74-106)
[2025-04-15] MEDS: AMIODARONE BOLUS KIT 100 ML IV ONE (13:30)
[2025-04-15] MEDS: AMIODARONE 360mg/200mL PREMIX 200 ML IV ONE (13:45)
[2025-04-15] MEDS ORDERED: MORPHINE SULFATE INJ 2 MG/ml SYRG IV PRN (14:15)
[2025-04-15] MEDS ORDERED: DOCUSATE SOD 100 MG CAP PO PRN (14:15)
[2025-04-15] MEDS ORDERED: ONDANSETRON HCL 4 MG/2 ML VIAL IV PRN (14:15)
[2025-04-15] MEDS ORDERED: HYDROcodone-ACET 5/325MG TAB PO PRN (14:15)
[2025-04-15] MEDS ORDERED: NITROGLYCERIN 0.4 MG SL TAB SL PRN (14:15)
[2025-04-15] MEDS ORDERED: ALPR0.255 PO (14:23)
[2025-04-15] MEDS ORDERED: SACU1TAB PO (14:23)
[2025-04-15] MEDS ORDERED: [UNRECOGNIZED DRUG - CODE] PO (14:23)
[2025-04-15] MEDS ORDERED: FURO40TA4 PO (14:23)
[2025-04-15] MEDS ORDERED: METO25TA93 PO (14:23)
[2025-04-15] MEDS ORDERED: POTA-215 PO (14:23)
[2025-04-15] MEDS ORDERED: ALPRAZolam 0.25 MG TAB PO PRN (14:30)
[2025-04-15 14:38] VITALS: RESP 20
--- NOTE | 2025-04-15 14:44 | DVHHP2 ---
History of Present Illness Reason for Visit: Palpitations History of Present Illness Nayeli Solorio is a 74-year-old female with past medical history of hypertension, hyperlipidemia, coronary artery disease, atrial fibrillation, and CHF who came to the hospital for palpitations. Patient states she woke up at 0700 felt palpitations, took her vital signs and her heart rate was in the 130's. She called the telehealth nurse and was told to take her medications and rest. She took her medications feel asleep and woke up about 1000. When she woke up she was still feeling the palpitations, she took her vital signs and her heart rate was in the 140's. That is when she decided to come to the hospital. In the ER patient was found to be in atrial fibrillation with RVR. She was placed in a bed and prescribed IV amiodarone. She converted to SR 80's before the IV medication could be given. Cardiovascular: AFIB, CAD, CHF, HTN, hyperipidemia Past Surgical History: CABG (and MVR in September 2024) Smoke: Quit (September 2024) ALCOHOL: none Drugs: None Lives: with Family Domestic Violence: Neg Review of Systems Constitutional: No: Fever, Chills, Sweats, Weakness, Malaise, Other Eyes: No: Pain, Vision change, Conjunctivae inflammation, Eyelid inflammation, Other, Redness ENT: No: Ear pain, Ear discharge, Nose pain, Nose discharge, Nose congestion, Mouth pain, Mouth swelling, Throat pain, Throat swelling, Other Respiratory: No: Cough, Dry, Shortness of breath, SOB with excertion, Wheezing, Hemoptysis, Pleuritic Pain, Sputum, Wheezing, Other Cardiovascular: Palpitations; No: Chest Pain, Orthopnea, Paroxysmal Noc. Dyspnea, Edema, Lt Headedness, Other Gastrointestinal: No: Nausea, Vomiting, Abdominal Pain, Diarrhea, Constipation, Melena, Hematochezia, Other Genitourinary: No Dysuria, No Frequency, No Incontinence, No Hematuria, No Retention, No Other Musculoskeletal: No: other, neck pain, shoulder pain, arm pain, back pain, hand pain, leg pain, foot pain Skin: No: Rash, Lesions, Jaundice, Bruising, Other Neurological: No: Weakness, Numbness, Incoordination, Change in speech, Confusion, Seizures, Other Allergies: Coded Allergies: NO KNOWN ALLERGIES (Unverified , 12/20/24) Medications Current Medications Medications Dose Ordered Sig/Tal Route Start Time Stop Time Status Last Admin Dose Admin Sodium Chloride 10 ml Q8HR IV 04/15/25 22:00 UNV Acetaminophen/ Hydrocodone Bitart 1 tab Q4HP PRN PO 04/15/25 14:15 UNV Ondansetron HCl 4 mg Q4HP PRN IV 04/15/25 14:15 UNV Docusate Sodium 100 mg BIDPRN PRN PO 04/15/25 14:15 UNV Acetaminophen 650 mg Q6HP PRN PO 04/15/25 14:15 UNV Nitroglycerin 0.4 mg Q5MINP PRN SL 04/15/25 14:15 UNV Morphine Sulfate 2 mg Q30M PRN IV 04/15/25 14:15 UNV Apixaban 5 mg BID PO 04/15/25 22:00 UNV Clonidine HCl 0.1 mg TIDPRN PRN PO 04/15/25 14:15 UNV Patient Own Medication 1 tab DAILY PO 04/16/25 10:00 UNV Alprazolam 0.25 mg DAILYPRN PRN PO 04/15/25 14:30 UNV Furosemide 40 mg DAILY PO 04/16/25 10:00 UNV Sacubitril/ Valsartan 1 tab BID PO 04/15/25 22:00 UNV Patient Own Medication 1 tab BID PO 04/15/25 22:00 UNV Patient Own Medication 10 meq DAILY PO 04/16/25 10:00 UNV Patient Own Medication 1 tab HS PO 04/15/25 22:00 UNV Exam Vital Signs Vital Signs Date Time Temp Pulse Resp B/P (MAP) Pulse Ox O2 Delivery O2 Flow Rate FiO2 04/15/25 13:26 83 04/15/25 10:45 98.0 20 130/64 99 98.0 General Appearance: Alert, Oriented X3, Cooperative, mild distress HEENT: Atraumatic, PERRLA Respiratory: Clear to auscultation, Normal air movement Cardiovascular: Regular rate, Normal S1, Normal S2 Abdominal: Normal bowel sounds, Soft, No tenderness Extremities: No clubbing, No cyanosis, No edema, Normal pulses Skin: No rashes, No breakdown, No significant lesion Neuro: Normal gait, Normal speech, Strength at 5/5 X4 ext, Normal tone Psych/Mental Status: Mental status NL, Mood NL Labs/Xrays Labs Test 04/15/25 13:45 04/15/25 10:52 Range/Units White Blood Count 6.1 4.4-10.8 10^3/uL Red Blood Count 5.25 H 4.0-5.20 10^6/uL Hemoglobin 15.3 # 12.2-16.2 g/dL Hematocrit 45.4 # 36.0-46.0 % Mean Corpuscular Volume 86.4 80.0-100.0 fL Mean Corpuscular Hemoglobin 29.1 28.0-32.0 pg Mean Corpuscular Hemoglobin Concent 33.6 32.0-36.0 g/dL Red Cell Distribution Width 18.4 H 11.8-14.3 % Platelet Count 213 140-450 10^3/uL Mean Platelet Volume 9.1 6.9-10.8 fL Neutrophils (%) (Auto) 50.6 37.0-80.0 % Lymphocytes (%) (Auto) 37.9 10.0-50.0 % Monocytes (%) (Auto) 8.8 0.0-12.0 % Eosinophils (%) (Auto) 2.4 0.0-7.0 % Basophils (%) (Auto) 0.3 0.0-2.0 % Neutrophils # (Auto) 3.1 1.6-8.6 10 ^3/uL Lymphocytes # (Auto) 2.3 0.4-5.4 10 ^3/uL Monocytes # (Auto) 0.5 0-1.3 10 ^3/uL Eosinophils # (Auto) 0.1 0-0.8 10 ^3/uL Basophils # (Auto) 0 0-0.2 10 ^3/uL Nucleated Red Blood Cells 0.1 % Sodium Level 143 136-145 mmol/L Potassium Level 4.1 3.5-5.1 mmol/L Chloride Level 107 98-107 mmol/L Carbon Dioxide Level 25 20-31 mmol/L Anion Gap 11 5-15 Blood Urea Nitrogen 20 9-23 mg/dL Creatinine 1.04 H 0.550-1.02 mg/dL Glomerular Filtration Rate Calc 56 >90 mL/min BUN/Creatinine Ratio 19.2 10.0-20.0 Serum Glucose 104 74-106 mg/dL Calcium Level 9.5 8.7-10.4 mg/dL B-Type Natriuretic Peptide 417.50 0-100 pg/mL CHEST RADIOGRAPH FINDINGS: Lines and Tubes: Median sternotomy Lungs: Clear Pleura: No effusion. No pneumothorax. Cardiomediastinal contours: Unremarkable Bones: Unremarkable IMPRESSION: No acute disease. SEPSIS Sepsis Screen Date sepsis recognized/suspect: Apr 15, 2025 Time Sepsis recognized/suspect: 1044 Recent Procedure: No Respiratory Rate >20: No Heart Rate >90: Yes Temp<36 C (96.8 F) or >38.3 C: No SBP <90 or MAP <65 mmHG: No New Acute Mental Status Change: No Is the patient on CPAP, BIPAP,: No Physician Orders Electrocardigram (04/15/25 11:56) Electrocardigram (04/15/25 13:56) Chest Portable (04/15/25 11:09) Troponin-I Hs (04/15/25 14:09) Amiodarone 360mg/200ml Premix (Nexterone (04/15/25 13:45) Amiodarone 360mg/200ml Premix (Nexterone (04/15/25 19:45) * Cardiology Consult (04/15/25 14:10) Admit (04/15/25 14:13) Code Status (04/15/25 14:13) Sodium Chloride Lock (Saline Lock Ns) (04/15/25 22:00) Hydrocodone-Acet 5/325mg Tab (Spearfish 5/32 (04/15/25 14:15) Ondansetron Hcl (Zofran) (04/15/25 14:15) Docusate Sodium Capsule (Colace Capsule) (04/15/25 14:15) Complete Blood Count (04/16/25 04:00) Comprehensive Metabolic Panel (04/16/25 04:00) Cardiac Diet-2gna,Lofat,Lochol (04/15/25 Dinner) Condition: Serious (04/15/25 14:13) Acetaminophen Tablet (Tylenol Tablet) (04/15/25 14:15) Nitroglycerin Sublingual (Ntrostat Subli (04/15/25 14:15) Morphine Sulfate Injection (04/15/25 14:15) Stat Ekg For Chest Pain (04/15/25 14:13) Notify Md Of Changes From Base (04/15/25 14:13) Hospice Home Care Coordinator For 24 Hours (04/15/25 14:13) Emergency Dysrhythmia Protocol (04/15/25 14:13) Rhythm Strips Once Every Shift (04/15/25 14:13) Oxygen By Nasal Cannula (04/15/25 14:13) Apixaban (Eliquis) (04/15/25 22:00) Clonidine Hcl Tablet (Catapres Tablet) (04/15/25 14:15) (Nf) Atorvastatin Calcium (Lipitor) (04/16/25 10:00) Alprazolam Tablet (Xanax Tablet) (04/15/25 14:30) Furosemide Tablet (Lasix Tablet) (04/16/25 10:00) Sacubitril-Valsartan (Entresto 24-26 Mg (04/15/25 22:00) (Nf) Metoprolol Succinate (Metoprolol Sky (04/15/25 22:00) (Nf) Potassium Chloride (Klor-Con M10) (04/16/25 10:00) (Nf) Venlafaxine Hydrochloride (04/15/25 22:00) Vital Signs Date Time Temp Pulse Resp B/P (MAP) Pulse Ox O2 Delivery O2 Flow Rate FiO2 04/15/25 13:26 83 04/15/25 11:49 143 04/15/25 10:45 98.0 148 20 130/64 99 98.0 04/15/25 10:45 144 Laboratory Tests Test 04/15/25 10:52 White Blood Count 6.1 10^3/uL (4.4-10.8) Assessment/Plan Assessment/Plan Assessment: Atrial fibrillation with RVR, Hypertension, CHF, Hyperlipidemia, Coronary artery disease, Plan: Admit to Tele, Cardiology consult, IV hydration, IV amiodarone if patient returns into atrial fibrillation with RVR, Home medications reconciled, Plan discussed with: Patient, Son My Orders Orders - JOSE VALENCIA GO CART MECHANIC Procedure Category Date Status Time * Cardiology Consult CONS 04/15/25 Transmitted 14:10 Admit ADMIT 04/15/25 Transmitted 14:13 Code Status CODE 04/15/25 Transmitted 14:13 Sodium Chloride Lock PHA 04/15/25 Logged (Saline Lock Ns) 22:00 Hydrocodone-Acet PHA 04/15/25 Logged 5/325mg Tab (Spearfish 14:15 Ondansetron Hcl PHA 04/15/25 Logged (Zofran) 14:15 Docusate Sodium PHA 04/15/25 Logged Capsule (Colace 14:15 Complete Blood Count LAB 04/16/25 Verified 04:00 Comprehensive LAB 04/16/25 Verified Metabolic Panel 04:00 Cardiac DIET 04/15/25 Transmitted Diet-2gna,Lofat,Lochol Dinner Condition: Serious CANDACE 04/15/25 In Process 14:13 Acetaminophen Tablet PHA 04/15/25 Logged (Tylenol Tablet) 14:15 Nitroglycerin PHA 04/15/25 Logged Sublingual (Ntrostat 14:15 Morphine Sulfate PHA 04/15/25 Logged Injection 14:15 Stat Ekg For Chest CANDACE 04/15/25 In Process Pain 14:13 Notify Md Of Changes [facility] 04/15/25 In Process From Base 14:13 Hospice Home Care Coordinator For [facility] 04/15/25 In Process 24 Hours 14:13 Emergency Dysrhythmia [facility] 04/15/25 In Process Protocol 14:13 Rhythm Strips Once [facility] 04/15/25 In Process Every Shift 14:13 Oxygen By Nasal RT 04/15/25 Transmitted Cannula 14:13 Apixaban (Eliquis) PHA 04/15/25 Logged 22:00 Clonidine Hcl Tablet PHA 04/15/25 Logged (Catapres Tablet) 14:15 (Nf) Atorvastatin PHA 04/16/25 Logged Calcium (Lipitor) 10:00 Alprazolam Tablet PHA 04/15/25 Logged (Xanax Tablet) 14:30 Furosemide Tablet PHA 04/16/25 Logged (Lasix Tablet) 10:00 Sacubitril-Valsartan PHA 04/15/25 Logged (Entresto 24-26 Mg 22:00 (Nf) Metoprolol PHA 04/15/25 Logged Succinate (Metoprolol 22:00 (Nf) Potassium PHA 04/16/25 Logged Chloride (Klor-Con 10:00 (Nf) Venlafaxine PHA 04/15/25 Logged Hydrochloride 22:00 Date of Service: Apr 15, 2025 Billing Provider: JOSE VALENCIAP Common Visit Codes: [id number] INP/OBS CARE (MOD) JOSE VALENCIA [facility] Apr 15, 2025 14:44
[2025-04-15] MEDS: AMIODARONE 360mg/200mL PREMIX 200 ML IV SCH (17:51)
--- NOTE | 2025-04-15 19:16 | ECG ---
[facility] Test Date: 2025-04-15 Test Time: 11:49:37 Pat Name: VINAY FLYNN Department: ED Room: 0231T Gender: F Garage Supervisor: KADE : 1950 Requested By: JARAD ALVARES Order Number: [id number] Reading MD: Mohsen Aparicio Measurements Intervals [place] Rate: 143 P: 0 MN: 0 QRS: 92 QRSD: 85 T: 58 QT: 315 QTc: 486 Interpretive Statements Atrial flutter with predominant 2:1 AV block Right axis deviation Borderline prolonged QT interval Electronically Signed On 04-20-2025 22:37:28 PDT by Mohsen Aparicio Please click the below link to view image of tracing.
--- NOTE | 2025-04-15 19:16 | ECG ---
[facility] Test Date: 2025-04-15 Test Time: 13:26:04 Pat Name: VINAY FLYNN Department: ED Room: 0231T Gender: F Cotton Inspector: vish : 1950 Requested By: JARAD ALVARES Order Number: [id number] Reading MD: Mohsen Aparicio Measurements Intervals [place] Rate: 83 P: 64 IN: 162 QRS: 92 QRSD: 87 T: 72 QT: 403 QTc: 474 Interpretive Statements Sinus rhythm Right axis deviation Low voltage, precordial leads Baseline wander in lead(s) V2,V3 Electronically Signed On 04-20-2025 22:38:09 PDT by Mohsen Aparicio Please click the below link to view image of tracing.
[2025-04-15 19:44] VITALS: PULSE 80; RESP 14; O2SAT 99
[2025-04-15 19:52] LABS: Urine Protein, UAD Negative (Negative)
[2025-04-15] MEDS: SODIUM CHLORIDE 0.9% 1,000 ML IV ONE (20:12)
[2025-04-15] MEDS: SACUBITRIL-VALSARTAN 24mg/26mg TAB PO SCH (21:34)
[2025-04-15] MEDS: ATORVASTATIN 20 MG TAB PO SCH (21:37)
[2025-04-15] MEDS: APIXABAN 5 MG TAB PO SCH (21:38)
[2025-04-15] MEDS: VENLAFAXINE HCL 25MG TABLET PO SCH (21:39)
[2025-04-15] MEDS: METOPROLOL SUCCINATE XL 50 MG TAB PO SCH (21:39)
[2025-04-15] MEDS: SODIUM CHLOR 0.9% PF (SALINE LOCK) 10ML VIAL/SYR IV SCH (21:39)
[2025-04-16] VITALS (7 sets, daily range): BP systolic 112–120; BP diastolic 61–76; PULSE 70–76; RESP 16–20; TEMP 36.6; O2SAT 97–98
[2025-04-16] MEDS ORDERED: AMLO1TAB22 PO (01:00)
[2025-04-16] MEDS: ACETAMINOPHEN 325 MG TAB PO PRN (05:30)
[2025-04-16 05:47] LABS: Hematocrit 36.4 % (36.0-46.0); Hemoglobin 12.2 g/dL (12.2-16.2); Mean Corpuscular Hemoglobin 29.3 pg (28.0-32.0); Mean Corpuscular Volume 87.4 fL (80.0-100.0); Nucleated Red Blood Cells % 0.1 %
[2025-04-16 06:23] LABS: Alanine Aminotransferase 19 U/L (7-40); Albumin 3.9 g/dL (3.2-4.8); Alkaline Phosphatase 89 U/L (46-116); Anion Gap 9 (5-15); BUN/Creatinine Ratio 25.5 (10.0-20.0); Bilirubin, Total 0.6 mg/dL (0.2-1.0); Carbon Dioxide 24 mmol/L (20-31); Glucose 105 mg/dL (74-106); Potassium 4.2 mmol/L (3.5-5.1); Sodium 141 mmol/L (136-145); Total Protein 6.3 g/dL (5.7-8.2)
[2025-04-16 06:24] LABS: Blood Urea Nitrogen 24 mg/dL (9-23); Calcium 8.7 mg/dL (8.7-10.4); Chloride 108 mmol/L (98-107)
[2025-04-16] MEDS: FUROSEMIDE 40 MG TAB PO SCH (10:14)
[2025-04-16] MEDS: POTASSIUM CHL 10 Meq TABLET PO SCH (10:14)
--- NOTE | 2025-04-16 13:28 | DVHPN2 ---
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 HTN HYPERLIPIDEMIA PAROXYSMAL AFIN HFpEF HX OF CVA EMBOLIC AFib, history of SVT, congestive heart failure, coronary artery disease status post triple-vessel disease, mitral valve regurgitation status post mitral valve replacement, vital signs Vital Sign Date Time Temp Pulse Resp B/P (MAP) Pulse Ox O2 Delivery O2 Flow Rate FiO2 04/16/25 13:21 97.8 70 16 119/62 (81) 97 97.8 04/16/25 08:00 Room Air* 0 21 Total Intake and Output 04/15/25 04/15/25 04/16/25 15:00 23:00 07:00 Intake Total 300 ml 280 ml Balance 300 ml 280 ml medications Current Medications Medications Dose Ordered Sig/Tal Route Start Time Stop Time Status Last Admin Dose Admin Sodium Chloride 10 ml Q8HR IV 04/15/25 22:00 04/16/25 05:32 10 ML Acetaminophen/ Hydrocodone Bitart 1 tab Q4HP PRN PO 04/15/25 14:15 Ondansetron HCl 4 mg Q4HP PRN IV 04/15/25 14:15 Docusate Sodium 100 mg BIDPRN PRN PO 04/15/25 14:15 Acetaminophen 650 mg Q6HP PRN PO 04/15/25 14:15 04/16/25 05:30 650 MG Nitroglycerin 0.4 mg Q5MINP PRN SL 04/15/25 14:15 Morphine Sulfate 2 mg Q30M PRN IV 04/15/25 14:15 Apixaban 5 mg BID PO 04/15/25 22:00 04/16/25 10:13 5 MG Clonidine HCl 0.1 mg TIDPRN PRN PO 04/15/25 14:15 Atorvastatin Calcium 10 mg HS PO 04/15/25 22:00 04/15/25 21:37 10 MG Alprazolam 0.25 mg DAILYPRN PRN PO 04/15/25 14:30 Furosemide 40 mg DAILY PO 04/16/25 10:00 04/16/25 10:14 40 MG Sacubitril/ Valsartan 1 tab BID PO 04/15/25 22:00 04/16/25 10:13 1 TAB Metoprolol Succinate 25 mg BID PO 04/15/25 22:00 04/16/25 10:14 25 MG Potassium Chloride 10 meq DAILY PO 04/16/25 10:00 04/16/25 10:14 10 MEQ Venlafaxine HCl 75 mg HS PO 04/15/25 22:00 04/15/25 21:39 75 MG laboratory and microbiology Laboratory Tests 04/16/25 05:04 Test 04/16/25 05:04 Range/Units Serum Glucose 105 74-106 mg/dL Problem List AFIB WITH RVR PT WITH HX OF ORG HEART DISEASE CAD S/P CABG 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
[2025-04-16] MEDS ORDERED: AMIO200T33 PO (14:35)
--- NOTE | 2025-04-16 15:47 | DVHDS2 ---
Discharge Summary Date of Admission Apr 15, 2025 at 14:13 Date of Discharge: Apr 16, 2025 Admitting Diagnosis AFib with RVR Labs/Diagnostic Data: Laboratory Results Test 04/16/25 05:04 04/15/25 13:45 04/15/25 11:17 04/15/25 10:52 White Blood Count 8.6 10^3/uL (4.4-10.8) Red Blood Count 4.17 10^6/uL (4.0-5.20) Hemoglobin 12.2 g/dL (12.2-16.2) Hematocrit 36.4 % (36.0-46.0) Mean Corpuscular Volume 87.4 fL (80.0-100.0) Mean Corpuscular Hemoglobin 29.3 pg (28.0-32.0) Mean Corpuscular Hemoglobin Concent 33.5 g/dL (32.0-36.0) Red Cell Distribution Width 18.3 % (11.8-14.3) Platelet Count 178 10^3/uL (140-450) Mean Platelet Volume 8.9 fL (6.9-10.8) Neutrophils (%) (Auto) 68.1 % (37.0-80.0) Lymphocytes (%) (Auto) 24.6 % (10.0-50.0) Monocytes (%) (Auto) 6.0 % (0.0-12.0) Eosinophils (%) (Auto) 0.9 % (0.0-7.0) Basophils (%) (Auto) 0.4 % (0.0-2.0) Neutrophils # (Auto) 5.8 10 ^3/uL (1.6-8.6) Lymphocytes # (Auto) 2.1 10 ^3/uL (0.4-5.4) Monocytes # (Auto) 0.5 10 ^3/uL (0-1.3) Eosinophils # (Auto) 0.1 10 ^3/uL (0-0.8) Basophils # (Auto) 0 10 ^3/uL (0-0.2) Nucleated Red Blood Cells 0.1 % Sodium Level 141 mmol/L (136-145) Potassium Level 4.2 mmol/L (3.5-5.1) Chloride Level 108 mmol/L (98-107) Carbon Dioxide Level 24 mmol/L (20-31) Anion Gap 9 (5-15) Blood Urea Nitrogen 24 mg/dL (9-23) Creatinine 0.94 mg/dL (0.550-1.02) Glomerular Filtration Rate Calc 64 mL/min (>90) BUN/Creatinine Ratio 25.5 (10.0-20.0) Serum Glucose 105 mg/dL (74-106) Calcium Level 8.7 mg/dL (8.7-10.4) Total Bilirubin 0.6 mg/dL (0.2-1.0) Aspartate Amino Transferase (AST) 26 U/L (13-40) Alanine Aminotransferase (ALT) 19 U/L (7-40) Alkaline Phosphatase 89 U/L (46-116) Total Protein 6.3 g/dL (5.7-8.2) Albumin 3.9 g/dL (3.2-4.8) Troponin I High Sensitivity 11 ng/L (</=34) Urine Color Colorless (Yellow) Urine Clarity Clear (Clear) Urine pH 5.0 (5.0-9.0) Urine Specific Addison 1.005 (1.001-1.035) Urine Protein Negative (Negative) Urine Ketones Negative (Negative) Urine Blood Negative /uL (Negative) Urine Nitrite Negative (Negative) Urine Bilirubin Negative (Negative) Urine Urobilinogen Normal mg/dL (Negative) Urine Leukocyte Esterase Negative /uL (Negative) Urine RBC <1 /hpf (0 - 4) Urine Microscopic WBC < 1 /HPF (0-5) Urine Squamous Epithelial Cells Few /hpf (<5) Urine Bacteria Few /hpf (None Seen) Urine Glucose Normal mg/dL (Normal) B-Type Natriuretic Peptide 417.50 pg/mL (0-100) Other Laboratory Tests 04/16/25 05:04 Brief Hx & Hospital Course: History of Present Illness Nayeli Solorio is a 74-year-old female with past medical history of hypertension, hyperlipidemia, coronary artery disease, atrial fibrillation, and CHF who came to the hospital for palpitations. Patient states she woke up at 0700 felt palpitations, took her vital signs and her heart rate was in the 130's. She called the telehealth nurse and was told to take her medications and rest. She took her medications feel asleep and woke up about 1000. When she woke up she was still feeling the palpitations, she took her vital signs and her heart rate was in the 140's. That is when she decided to come to the hospital. In the ER patient was found to be in atrial fibrillation with RVR. She was placed in a bed and prescribed IV amiodarone. She converted to SR 80's before the IV medication could be given. Course of hospitalization: The patient was continued on her home anticoagulation with Eliquis. Patient converted from atrial fibrillation back to sinus rhythm. Cardiology consultation was obtained with Dr. Coy. Recommendations reviewed. Patient was not started on IV amiodarone. Patient will be discharged now that she is in sinus rhythm. She will be continued on p.o. amiodarone 400 mg p.o. b.i.d. x7 days as suggested by Cardiology. She will follow up with Dr. Coy in 1-2 weeks. Patient was also instructed to continue all previous home medications. Physical examination General: Alert and Oriented x3. No acute distress. Well-nourished. Eyes: EOMI. Anicteric. HENT: Moist mucous membranes. Lungs: Clear to auscultation bilaterally. No accessory muscle use. Cardiovascular: Regular rate and rhythm. No murmur. No JVD. Abdomen: Soft, non-tender and non-distended. No palpable masses. Extremities: No edema. Non-tender. Skin: No rashes or lesions. Warm. Neurologic: No focal neurological deficits. CN II-XII grossly intact, but not individually tested. Psychiatric: Cooperative. Appropriate mood and affect. Total time spent with patient discussing and formulating plan of care: 35 minutes. This medical document was created using an electronic medical record system with [employer] dictation system. Although this document has been carefully reviewed, there may still be some phonetic and typographical errors. These areas are purely typographical due to imperfections of the software programs, and do not reflect any compromise in the patient's medical care. Condition at Discharge: Fair Final Diagnosis/Problems List Atrial Fibrillation with RVR Secondary diagnosis: Coronary artery disease with previous CABG -mitral valve replacement -acute on chronic systolic heart failure -paroxysmal atrial fibrillation -primary hypertension Discharge Disposition: Home Discharge Instruct/Medications Diet: Cardiac 2g Na,low cholest Activity: No Restrictions, As Tolerated Follow Up/Referral: Dr. Coy in 1-2 weeks Medications: Continue all home medications Amiodarone 400mg po bid for 7 days, then 400mg po daily Scheduled Amiodarone Hcl (Amiodarone Hcl), 2 TAB PO BID Amlodipine Besylate (Amlodipine Besylate), 5 MG PO DAILY, (Reported) Apixaban Base (Eliquis), 1 TAB PO BID, (Reported) Atorvastatin Calcium (Lipitor), 1 TAB PO DAILY, (Reported) Furosemide (Furosemide), 1 TAB PO DAILY, (Reported) Metoprolol Succinate (Metoprolol Succinate Er), 1 TAB PO BID, (Reported) Potassium Chloride (Klor-Con M10), 10 MEQ PO DAILY, (Reported) Sacubitril-Valsartan (Entresto 24-26 mg), 1 TAB PO BID, (Reported) Venlafaxine Hydrochloride (Venlafaxine Hydrochloride), 1 TAB PO HS, (Reported) Scheduled PRN Alprazolam (Alprazolam), 1 TAB PO DAILYPRN PRN, (Reported) Clonidine Hydrochloride (Clonidine Hcl), 0.1 MG PO TIDPRN PRN Discontinued Medications Metoprolol Succinate (Metoprolol Succinate Er), 1 TAB PO DAILY 36 Discharge Statement: "Patient was advised to return to the ER or call 911 if any headaches, dizziness, shortness of breath, chest pain, abdominal pain, bleeding, fevers, or worsening of medical condition. Patient was counseled about treatment plan, medications, possible side effects, patientverbalized understanding. All questions were answered to the best of my ability. This discharge took greater then 30 minutes in planning, reviewing documentation, counseling the patient, and discussing with other team members." ASSESSMENT ASSESSMENT Assessment Atrial Fibrillation with RVR Date of Service: Apr 16, 2025 Billing Provider: FREDDY ELKINS NP Common Visit Codes: 51813-NNV/OBS DISCH DAY >30min FREDDY ELKINS NP Apr 16, 2025 15:47
[2025-04-16] MEDS ORDERED: AMIODARONE HCL 200 MG TAB PO SCH (22:00)
--- NOTE | 2025-04-21 10:37 | DVHPN2 ---
Progress Note - Dictate Date Seen: Apr 16, 2025 Medical Necessity Reason Pt with a Central, PICC or Fol: No Subjective PT WITH AFIB WITH RVR PT WITH HX OF ORG HEART DISEASE CAD S/P CABG MV REPLACEMENT SECONDARY TO MR BIOPROSTHETIC MV HTN HYPERLIPIDEMIA PAROXYSMAL AFIN HFpEF HX OF CVA EMBOLIC AFib, history of SVT, congestive heart failure, coronary artery disease status post triple-vessel disease, mitral valve regurgitation status post mitral valve replacement, laboratory and microbiology Laboratory Tests 04/16/25 05:04 Test 04/16/25 05:04 Range/Units Serum Glucose 105 74-106 mg/dL Problem List AFIB WITH RVR PT WITH HX OF ORG HEART DISEASE CAD S/P CABG MV REPLACEMENT SECONDARY TO MR BIOPROSTHETIC MV HTN HYPERLIPIDEMIA PAROXYSMAL AFIN HFpEF HX OF CVA EMBOLIC AFib, history of SVT, congestive heart failure, coronary artery disease status post triple-vessel disease, mitral valve regurgitation status post mitral valve replacement, Assessment/Plan DC IV AMIODARONE START ORAL AMIODARONE WILL BE REFERRED FOR AFIB ABLATION Plan discussed with: Patient NURA LEIVA MD Apr 21, 2025 10:36
== END 2025-04-16 16:15 | disposition home or self-care (01) | DRG 291 ==
LOC: ER 10:41 → OVERFLOW 14:13 → TELE-EAST 23:54
PROVIDERS: ADMIT Nurse Practitioner Acute Care; ATTEND Nurse Practitioner Acute Care
DX: I11.0 Hypertensive heart disease with heart failure (principal); I50.23 Acute on chronic systolic (congestive) heart failure; I48.0 Paroxysmal atrial fibrillation; I25.10 Atherosclerotic heart disease of native coronary artery without angina pectoris; E78.5 Hyperlipidemia, unspecified; Z79.01 Long term (current) use of anticoagulants; Z79.899 Other long term (current) drug therapy; Z95.2 Presence of prosthetic heart valve; Z95.1 Presence of aortocoronary bypass graft; Z86.73 Personal history of transient ischemic attack (TIA), and cerebral infarction without residual deficits
CPT/HCPCS: 36415; 71045; 80048; 80053; 81001; 83880; 84484; 85025; 87081; 93005; G0378

== ENCOUNTER → 2025-04-17 | Outpatient (CLI) | payer MEDICAID ==
[~2025-04-17] MED LIST changes: +ALPR0.255 PO; +AMIO200T33 PO; +AMLO1TAB22 PO; +FURO40TA4 PO; +POTA-215 PO; +SACU1TAB PO; +[UNRECOGNIZED DRUG - CODE] PO
[2025-04-17 15:39] LABS: Potassium 4.5 mmol/L (3.5-5.1); Sodium 143 mmol/L (136-145)
[2025-04-17 15:40] LABS: Anion Gap 7 (5-15); Calcium 8.8 mg/dL (8.7-10.4); Carbon Dioxide 28 mmol/L (20-31)
[2025-04-17 15:45] LABS: BUN/Creatinine Ratio 19.5 (10.0-20.0); Blood Urea Nitrogen 22 mg/dL (9-23)
[2025-04-17 15:46] LABS: Chloride 108 mmol/L (98-107); Glucose 70 mg/dL (74-106)
== END | disposition home or self-care (01) ==
LOC: LAB 15:11
PROVIDERS: ATTEND Internal Medicine
DX: I10 Essential (primary) hypertension (principal); R73.03 Prediabetes
CPT/HCPCS: 36415; 80048

== ENCOUNTER 2025-04-29 14:23 | Outpatient (CLI) | payer MEDICAID ==
[~2025-04-29] VITALS: Ht 160 cm; Wt 74.8 kg
[2025-04-29] MEDS ORDERED: ADENOSINE 90 MG/30 ML INJ IV ONE (15:04)
[2025-04-29] MEDS ORDERED: ADENOSINE 63 MG in GIVE UN-DILUTED 0 ML IV ONE (16:15)
== END 2025-04-29 17:00 | disposition home or self-care (01) ==
LOC: Rad HDHVI 14:23
PROVIDERS: ATTEND Internal Medicine Cardiovascular Disease
DX: I48.91 Unspecified atrial fibrillation (principal); I11.0 Hypertensive heart disease with heart failure; I50.9 Heart failure, unspecified; I25.10 Atherosclerotic heart disease of native coronary artery without angina pectoris; I25.2 Old myocardial infarction; R06.02 Shortness of breath; E78.00 Pure hypercholesterolemia, unspecified; R00.2 Palpitations; R07.89 Other chest pain; R42 Dizziness and giddiness; Z95.1 Presence of aortocoronary bypass graft; Z09 Encounter for follow-up examination after completed treatment for conditions other than malignant neoplasm
CPT/HCPCS: 78452; 93017; A9500; J0153

== ENCOUNTER → 2025-07-03 | Outpatient (CLI) | payer MEDICAID ==
[2025-07-03 07:37] LABS: Hematocrit 39.8 % (36.0-46.0); Hemoglobin 13.3 g/dL (12.2-16.2); Mean Corpuscular Hemoglobin 29.5 pg (28.0-32.0); Mean Corpuscular Volume 88.6 fL (80.0-100.0); Nucleated Red Blood Cells % 0.4 %
[2025-07-03 08:09] LABS: Urine Budding Yeast FEW /hpf (None Seen); Urine Protein, UAD Negative (Negative)
[2025-07-03 08:28] LABS: Alanine Aminotransferase 11 U/L (7-40); Albumin 4.3 g/dL (3.2-4.8); Alkaline Phosphatase 99 U/L (46-116); Anion Gap 9 (5-15); BUN/Creatinine Ratio 19.5 (10.0-20.0); Bilirubin, Total 0.4 mg/dL (0.2-1.0); Blood Urea Nitrogen 23 mg/dL (9-23); Calcium 9.1 mg/dL (8.7-10.4); Carbon Dioxide 28 mmol/L (20-31); Chloride 107 mmol/L (98-107); Cholesterol 152 mg/dL (< 200); Glucose 92 mg/dL (74-106); HDL Cholesterol 44 mg/dL (40-59); Magnesium 2.5 mg/dL (1.6-2.6); Potassium 4.4 mmol/L (3.5-5.1); Sodium 144 mmol/L (136-145); Total Protein 7.7 g/dL (5.7-8.2)
[2025-07-03 08:51] LABS: Triglycerides 156 mg/dL (< 150)
== END | disposition home or self-care (01) ==
LOC: LAB 06:18
PROVIDERS: ATTEND Nurse Practitioner Family
DX: I13.0 Hypertensive heart and chronic kidney disease with heart failure and stage 1 through stage 4 chronic kidney disease, or unspecified chronic kidney disease (principal); N18.31 Chronic kidney disease, stage 3a; I50.9 Heart failure, unspecified; E78.5 Hyperlipidemia, unspecified; E87.6 Hypokalemia; E55.9 Vitamin D deficiency, unspecified; D64.9 Anemia, unspecified; Z79.899 Other long term (current) drug therapy
CPT/HCPCS: 36415; 80053; 80061; 81001; 82306; 82607; 83036; 83540; 83735; 84443; 85025

== ENCOUNTER 2025-07-10 06:14 | Outpatient (CLI) | payer MEDICAID ==
[2025-07-10 07:29] LABS: Hematocrit 39.3 % (36.0-46.0); Hemoglobin 13.2 g/dL (12.2-16.2); Mean Corpuscular Hemoglobin 29.7 pg (28.0-32.0); Mean Corpuscular Volume 88.5 fL (80.0-100.0); Nucleated Red Blood Cells % 0.2 %
[2025-07-10 08:09] LABS: Alanine Aminotransferase 13 U/L (7-40); Alkaline Phosphatase 111 U/L (46-116); Anion Gap 10 (5-15); BUN/Creatinine Ratio 20.6 (10.0-20.0); Calcium 9.4 mg/dL (8.7-10.4); Carbon Dioxide 28 mmol/L (20-31); Chloride 105 mmol/L (98-107); Glucose 97 mg/dL (74-106); Potassium 4.8 mmol/L (3.5-5.1); Sodium 143 mmol/L (136-145); Triglycerides 124 mg/dL (< 150)
[2025-07-10 08:10] LABS: Total Protein 7.7 g/dL (5.7-8.2)
[2025-07-10 08:11] LABS: Albumin 4.4 g/dL (3.2-4.8); Bilirubin, Total 0.5 mg/dL (0.2-1.0); Blood Urea Nitrogen 28 mg/dL (9-23); Cholesterol 166 mg/dL (< 200); HDL Cholesterol 47 mg/dL (40-59)
== END 2025-07-10 17:00 | disposition home or self-care (01) ==
LOC: LAB 06:14
PROVIDERS: ATTEND Nurse Practitioner Family
DX: I13.0 Hypertensive heart and chronic kidney disease with heart failure and stage 1 through stage 4 chronic kidney disease, or unspecified chronic kidney disease (principal); N18.30 Chronic kidney disease, stage 3 unspecified; I50.9 Heart failure, unspecified; E78.5 Hyperlipidemia, unspecified; E55.9 Vitamin D deficiency, unspecified; R73.03 Prediabetes
CPT/HCPCS: 36415; 80053; 80061; 82306; 82607; 83036; 84443; 85025